=== PATIENT | male | born 1950 | race African-American/Black ===

== ENCOUNTER 2021-08-14 09:31 | Observation (INO) | payer OTHER ==
[2021-08-14] MEDS ORDERED: NA CHLORIDE 0.9% 1,000 ML ONE (10:17)
[2021-08-14] MEDS ORDERED: LABETALOL HCL 100 MG/20 ML ONE (10:17)
[2021-08-14 10:47] LABS: Absolute Lymphocytes (CBC) 1.3 K/uL (0.7-4.9); Hematocrit 45.8 % (39.6-49.0); Lymphocytes % 27.9 % (15.3-44.8); RBC Red Blood Cell Count 4.77 M/uL (4.33-5.43)
[2021-08-14 10:50] LABS: Protime INR 1.27
--- NOTE | 2021-08-14 11:27 | RAD REPORT ---
EXAM DESCRIPTION: RAD - Chest Single View - 08/14/2021 11:13 am CLINICAL HISTORY: COUGH COMPARISON: No comparisons FINDINGS: Lines: None. Lungs: No evidence of edema or pneumonia. Pleural: No significant pleural effusions or pneumothorax. Cardiac: Cardiomegaly. Bones: No acute fractures. Other: IMPRESSION: No acute cardiopulmonary disease.
--- NOTE | 2021-08-14 11:32 | RAD REPORT ---
EXAM DESCRIPTION: CT - Head Brain Wo Cont - 08/14/2021 11:21 am CLINICAL HISTORY: High blood pressure, dizziness, history of stroke COMPARISON: No comparisons TECHNIQUE: All CT scans are performed using dose optimization technique as appropriate and may inclu de automated exposure control or mA/KV adjustment according to patient size. FINDINGS: No intracranial hemorrhage, hydrocephalus or extra-axial fluid collection.Chronic small ve ssel ischemic changes. Probably chronic right basal ganglia/ jones radiata lacunar infarct. The paranasal sinuses and mastoids are clear. The calvarium is intact. IMPRESSION: No acute intracranial abnormality. Probably chronic right basal ganglia/jones radiata lacunar infarct. MRI could confirm.
[2021-08-14] MEDS ORDERED: METOPROLOL TAR 50 MG TAB ONE (11:43)
[2021-08-14] MEDS ORDERED: AMLODIPINE 10 MG TAB ONE (11:43)
--- NOTE | 2021-08-14 12:00 | ER ---
Nurse's Notes [facility] Name: Henrry Rios Age: 71 yrs Sex: Male : 1950 Arrival Date: 08/14/2021 Time: 09:34 Bed 15 Private MD: Diagnosis: Persistent atrial fibrillation-with RVR;Essential (primary) hypertension;Dyspnea;Non ST elevation NV Presentation: 08/14 09:51 Chief complaint: Patient's son or daughter states: she was informed by the patients ap3 girl friend that the patient has intermittently been short of breath since 08/09/2021. Patients daughter states that it is also reported that the patient hasn't been acting like himself since 08/09/2021. Daughter states that the patient has more of a flat affect, and he typically is very engaged in conversation and likes to joke around. Coronavirus screen: At this time, the client does not indicate any symptoms associated with coronavirus-19. Ebola Screen: No symptoms or risks identified at this time. Initial Sepsis Screen: Does the patient meet any 2 criteria? No. Patient's initial sepsis screen is negative. Does the patient have a suspected source of infection? No. Patient's initial sepsis screen is negative. Risk Assessment: Do you want to hurt yourself or someone else? Patient reports no desire to harm self or others. Onset of symptoms was August 09, 2021. 09:51 Method Of Arrival: Ambulatory ap3 09:51 Acuity: KALEY 2 ap3 Triage Assessment: 09:55 General: Appears in no apparent distress. Behavior is calm, cooperative. Pain: Denies ap3 pain. Neuro: Level of Consciousness is awake, alert, obeys commands, Oriented to person, place, time, situation, Gait is steady, Speech is normal. Neuro: Reports it is reported patient isn't acting like himself. Cardiovascular: Patient's skin is warm and dry. Respiratory: Airway is patent Respiratory effort is even, unlabored. Historical: - Allergies: 09:54 No Known Allergies; ap3 - PMHx: 09:54 Hypertensive disorder; stroke of unknown type-2019; ap3 - Immunization history:: Client reports having NOT received the Covid vaccine. Flu vaccine is not up to date. - Social history:: Smoking status: Patient denies any tobacco usage or history of. Screenin:56 Abuse screen: Denies threats or abuse. Nutritional screening: No deficits noted. ap3 Tuberculosis screening: No symptoms or risk factors identified. 10:00 Fall Risk None identified. bp Assessment: 10:00 General: SEE TRIAGE NOTE. bp 12:00 Reassessment: No changes from previously documented assessment. Patient and/or family bp updated on plan of care and expected duration. Pain level reassessed. ADMIT INITIATED. 14:00 Reassessment: No changes from previously documented assessment. Patient and/or family bp updated on plan of care and expected duration. Pain level reassessed. ADMIT IN PROCESS. Vital Signs: 09:51 BP 180 / 149; Pulse 79; Resp 18; Temp 97.7; Pulse Ox 100% on R/A; Weight 89.36 kg; ap3 Height 5 ft. 11 in. (180.34 cm); 10:00 BP 172 / 140; Pulse 116; Resp 19; Pulse Ox 99% ; bp 10:45 BP 147 / 112; Pulse 87; Resp 19; Pulse Ox 99% ; bp 12:00 BP 146 / 75; Pulse 92; Resp 21; Pulse Ox 100% ; bp 14:00 BP 144 / 116; Pulse 90; Resp 20; Pulse Ox 100% ; bp 09:51 Body Mass Index 27.48 (89.36 kg, 180.34 cm) ap3 ED Course: 09:34 Patient arrived in ED. ds1 09:54 Triage completed. ap3 09:56 Arm band placed on right wrist. ap3 10:00 Marshall Pratt, RN is Primary Nurse. bp 10:00 Yovani Curry MD is Attending Physician. pelon 10:00 Patient has correct armband on for positive identification. Bed in low position. Call bp light in reach. Side rails up X2. 10:25 Inserted saline lock: 20 gauge in right forearm, using aseptic technique. Blood bp collected. 11:15 XRAY Chest (1 view) In Process Unspecified. EDMS 11:23 CT Head Brain wo Cont In Process Unspecified. EDMS 11:59 Joshua Louis MD is Hospitalizing Provider. [facility] 23:48 Primary Nurse role handed off by Marshall Pratt, RN tw 23:48 Wanda Hoffmann RN is Primary Nurse. tw5 08/15 00:34 No provider procedures requiring assistance completed. Patient admitted, IV remains in [address] Administered Medications: 08/14 10:25 Drug: NS 0.9% 1000 ml Route: IV; Rate: 125 ml/hr; Site: right forearm; bp 10:25 Drug: Labetalol 20 mg Route: IVP; Infused Over: 2 mins; Site: right forearm; bp 11:14 Follow up: Response: Blood pressure is lowered bp 11:30 Drug: Lopressor (metoprolol TARTRATE) 50 mg Route: PO; bp 13:59 Follow up: Response: No adverse reaction bp 11:30 Drug: Norvasc (amlodipine) 10 mg Route: PO; bp 13:59 Follow up: Response: No adverse reaction bp 12:00 Drug: Lovenox (enoxaparin) 1 mg/kg Route: Sub-Q; Site: right lower abdomen; bp 14:00 Follow up: Response: No adverse reaction bp 12:00 Drug: Pepcid (famotidine) 20 mg Route: IVP; Site: right forearm; bp 14:00 Follow up: Response: No adverse reaction bp 12:45 Drug: Aspirin Chewable Tablet 324 mg Route: PO; bp 14:00 Follow up: Response: No adverse reaction bp 12:45 Drug: Potassium Effervescent Tablet 25 mEq Route: PO; bp 14:00 Follow up: Response: No adverse reaction bp 12:45 Drug: Lasix (furosemide) 20 mg Route: IVP; Site: right forearm; bp 14:00 Follow up: Response: No adverse reaction bp Outcome: 11:59 Decision to Hospitalize by Provider. pelon 08/15 00:34 Admitted to ICU accompanied by nurse, via stretcher, with chart, Report called to Rimma telles Condition: stable Instructed on the need for admit. 00:35 Patient left the ED. [facility] Signatures: Dispatcher [employer] EDYovani Akhtar MD MD cha Sanford, Demi ds1 Marshall Pratt RN RN bp Kelli Sharma RN RN ap3 Wood, Tiffany tw5 Wanda Hoffmann RN RN sm5
--- NOTE | 2021-08-14 12:00 | EDPHYS ---
Physician Documentation [facility] Name: Henrry Rios Age: 71 yrs Sex: Male : 1950 Arrival Date: 08/14/2021 Time: 09:34 Bed 15 Private MD: ED Physician Yovani Curry HPI: 08/14 11:47 This 71 yrs old Black Male presents to ER via Ambulatory with complaints of Altered pelon Mental Status, Shortness Of Breath. 11:47 The patient presents with trouble concentrating. Onset: The symptoms/episode pelon began/occurred 2 day(s) ago. Possible causes: CVA or TIA. Historical: - Allergies: 09:54 No Known Allergies; ap3 - PMHx: 09:54 Hypertensive disorder; stroke of unknown type-2018; ap3 - Immunization history:: Client reports having NOT received the Covid vaccine. Flu vaccine is not up to date. - Social history:: Smoking status: Patient denies any tobacco usage or history of. ROS: 11:48 Constitutional: Negative for fever, chills, and weight loss, Eyes: Negative for injury, pelon pain, redness, and discharge, ENT: Negative for injury, pain, and discharge, Neck: Negative for injury, pain, and swelling, Abdomen/GI: Negative for abdominal pain, nausea, vomiting, diarrhea, and constipation, Back: Negative for injury and pain, : Negative for injury, bleeding, discharge, and swelling, MS/Extremity: Negative for injury and deformity, Skin: Negative for injury, rash, and discoloration, Psych: Negative for depression, anxiety, suicide ideation, homicidal ideation, and hallucinations, Allergy/Immunology: Negative for hives, rash, and allergies, Endocrine: Negative for neck swelling, polydipsia, polyuria, polyphagia, and marked weight changes, Hematologic/Lymphatic: Negative for swollen nodes, abnormal bleeding, and unusual bruising. 11:48 Neck: Negative for pain with movement, pain at rest, stiffness, swelling. 11:48 Cardiovascular: Positive for palpitations. 11:48 Respiratory: Positive for cough, with no reported sputum. Exam: 11:48 Constitutional: This is a well developed, well nourished patient who is awake, alert, pelon and in no acute distress. Head/Face: Normocephalic, atraumatic. Eyes: Pupils equal round and reactive to light, extra-ocular motions intact. Lids and lashes normal. Conjunctiva and sclera are non-icteric and not injected. Cornea within normal limits. Periorbital areas with no swelling, redness, or edema. ENT: Nares patent. No nasal discharge, no septal abnormalities noted. Tympanic membranes are normal and external auditory canals are clear. Oropharynx with no redness, swelling, or masses, exudates, or evidence of obstruction, uvula midline. Mucous membranes moist. Neck: Trachea midline, no thyromegaly or masses palpated, and no cervical lymphadenopathy. Supple, full range of motion without nuchal rigidity, or vertebral point tenderness. No Meningismus. Chest/axilla: Normal chest wall appearance and motion. Nontender with no deformity. No lesions are appreciated. Abdomen/GI: Soft, non-tender, with normal bowel sounds. No distension or tympany. No guarding or rebound. No evidence of tenderness throughout. Back: No spinal tenderness. No costovertebral tenderness. Full range of motion. Male : Normal genitalia with no discharge or lesions. Skin: Warm, dry with normal turgor. Normal color with no rashes, no lesions, and no evidence of cellulitis. MS/ Extremity: Pulses equal, no cyanosis. Neurovascular intact. Full, normal range of motion. Neuro: Awake and alert, GCS 15, oriented to person, place, time, and situation. Cranial nerves II-XII grossly intact. Motor strength 5/5 in all extremities. Sensory grossly intact. Cerebellar exam normal. Normal gait. Psych: Awake, alert, with orientation to person, place and time. Behavior, mood, and affect are within normal limits. 11:48 Cardiovascular: Rate: normal, Rhythm: irregularly irregular, Pulses: Pulses are 4+ in bilateral radial, brachial, femoral, popliteal, posterior tibial and and dorsalis pedis arteries.. Heart sounds: normal, normal S1and S2, no S3 or S4, no murmur, no rub, no gallop, murmur, not appreciated, Edema: is not appreciated, JVD: is noted bilaterally, to 2 cm. 11:48 ECG was reviewed by the Attending Physician. Vital Signs: 09:51 BP 180 / 149; Pulse 79; Resp 18; Temp 97.7; Pulse Ox 100% on R/A; Weight 89.36 kg; ap3 Height 5 ft. 11 in. (180.34 cm); 10:00 BP 172 / 140; Pulse 116; Resp 19; Pulse Ox 99% ; bp 10:45 BP 147 / 112; Pulse 87; Resp 19; Pulse Ox 99% ; bp 12:00 BP 146 / 75; Pulse 92; Resp 21; Pulse Ox 100% ; bp 14:00 BP 144 / 116; Pulse 90; Resp 20; Pulse Ox 100% ; bp 09:51 Body Mass Index 27.48 (89.36 kg, 180.34 cm) ap3 MDM: 10:00 Patient medically screened. pelon 11:56 Differential diagnosis: Bronchitis CHF exacerbation, arrythmia, dehydration, Myocardial pelon Infarction pneumonia, Pneumothorax pulmonary edema, Pulmonary Embolism Unstable Angina. Antibiotic administration: Not indicated. Differential Diagnosis altered mental status. Differential Diagnosis: CVA, electrolyte abnormality, hypoglycemia, intracranial bleed, pneumonia, TIA, UTI, volume depletion. The patient's Wells Deep Vein Thrombosis Score was calculated as follows: Heart Rate >100 BPM (1.5 Pts) Total Score: 0-2 Pts- Low Risk. The patient's pulmonary embolism risk score was calculated as follows: Total Score: 0-2 points. This patient was found to be at low risk for a pulmonary embolism by using the Well's assessment criteria. Immunization status: Pneumococcal vaccine: Influenza vaccine: Data reviewed: vital signs, nurses notes, lab test result(s), EKG, radiologic studies, CT scan, plain films. Data interpreted: bioinformatics assistant: rate is 106 beats/min, rhythm is atrial fibrillation, atrial flutter, Pulse oximetry: on room air is 99 %. Test interpretation: by ED physician or midlevel provider: ECG, plain radiologic studies. 08/14 10:03 Order name: Basic Metabolic Panel; Complete Time: 12:21 [facility] 08/14 10:03 Order name: CBC with Diff; Complete Time: 11:46 08/14 10:03 Order name: LFT's; Complete Time: 12:21 08/14 10:03 Order name: Magnesium; Complete Time: 12:21 08/14 10:03 Order name: NT PRO-BNP; Complete Time: 12:21 08/14 10:03 Order name: PT-INR; Complete Time: 11:46 08/14 10:03 Order name: Troponin HS; Complete Time: 12:21 08/14 10:03 Order name: SARS-COV-2 RT PCR (Document "Date of Onset" if Symptomatic); Complete Time: pelon 12:20 08/14 11:21 Order name: TSH [facility] 08/14 13:10 Order name: CBC with Automated Diff EDMS 08/14 13:10 Order name: CBC with Automated Diff EDMS 08/14 13:10 Order name: Comprehensive Metabolic Panel EDMS 08/14 13:10 Order name: Comprehensive Metabolic Panel EDMS 08/14 13:10 Order name: Lipid Profile EDMS 08/14 10:03 Order name: XRAY Chest (1 view); Complete Time: 11:46 [facility] 08/14 10:03 Order name: CT Head Brain wo Cont; Complete Time: 11:46 [facility] 08/14 11:46 Order name: Echo w/ Doppler [facility] 08/14 13:10 Order name: Lipid Profile EDMS 08/14 13:10 Order name: Magnesium EDMS 08/14 13:10 Order name: Magnesium EDMS 08/14 13:10 Order name: Troponin High Sensitivity EDMS 08/14 13:10 Order name: Troponin High Sensitivity EDMS 08/14 13:10 Order name: Troponin High Sensitivity EDMS 08/14 13:10 Order name: Stroke Protocol EDMS 08/14 13:56 Order name: Urine Dipstick-Ancillary EDMS 08/14 17:43 Order name: US EDMS 08/14 20:35 Order name: MRI EDMS 08/14 20:37 Order name: MRI EDMS 08/14 20:40 Order name: MRI EDMS 08/14 10:03 Order name: EKG; Complete Time: 10:04 pelon 08/14 10:03 Order name: Cardiac monitoring; Complete Time: 10:46 pelon 08/14 10:03 Order name: EKG - Nurse/Tech; Complete Time: 10:46 08/14 10:03 Order name: IV Saline Lock; Complete Time: 10:46 pelon 08/14 10:03 Order name: Labs collected and sent; Complete Time: 10:46 pelon 08/14 10:03 Order name: O2 Per Protocol; Complete Time: 10:08 pelon 08/14 10:03 Order name: O2 Sat Monitoring; Complete Time: 10:08 pelon 08/14 10:03 Order name: Urine Dipstick-Ancillary (obtain specimen); Complete Time: 14:01 pelon 08/14 11:10 Order name: Labs - recollect needed: recollect green top; Complete Time: 13:59 bd 08/14 13:05 Order name: CONS Physician Consult [facility] 08/14 13:10 Order name: Physical Therapy Consult [facility] 08/14 13:10 Order name: Heart Healthy [facility] 08/14 13:10 Order name: EKG Electrocardiogram [facility] 08/14 13:10 Order name: EKG Electrocardiogram [facility] EC:48 Rate is 106 beats/min. Rhythm is irregularly irregular. QRS Colon is Normal. WI interval pelon is normal. QRS interval is normal. QT interval is normal. No Q waves. T waves are Normal. No ST changes noted. Clinical impression: Atrial Fibrillation and Atrial Flutter. Interpreted by me. Reviewed by me. Administered Medications: 10:25 Drug: NS 0.9% 1000 ml Route: IV; Rate: 125 ml/hr; Site: right forearm; bp 10:25 Drug: Labetalol 20 mg Route: IVP; Infused Over: 2 mins; Site: right forearm; bp 11:14 Follow up: Response: Blood pressure is lowered bp 11:30 Drug: Lopressor (metoprolol TARTRATE) 50 mg Route: PO; bp 13:59 Follow up: Response: No adverse reaction bp 11:30 Drug: Norvasc (amlodipine) 10 mg Route: PO; bp 13:59 Follow up: Response: No adverse reaction bp 12:00 Drug: Lovenox (enoxaparin) 1 mg/kg Route: Sub-Q; Site: right lower abdomen; bp 14:00 Follow up: Response: No adverse reaction bp 12:00 Drug: Pepcid (famotidine) 20 mg Route: IVP; Site: right forearm; bp 14:00 Follow up: Response: No adverse reaction bp 12:45 Drug: Aspirin Chewable Tablet 324 mg Route: PO; bp 14:00 Follow up: Response: No adverse reaction bp 12:45 Drug: Potassium Effervescent Tablet 25 mEq Route: PO; bp 14:00 Follow up: Response: No adverse reaction bp 12:45 Drug: Lasix (furosemide) 20 mg Route: IVP; Site: right forearm; bp 14:00 Follow up: Response: No adverse reaction bp Disposition Summary: 08/14/21 11:59 Hospitalization Ordered Hospitalization Status: Observation pelon Provider: Joshua Louis cha Condition: Fair pelon Problem: new pelon Symptoms: have improved pelon Bed/Room Type: Standard pelon Location: Intensive Care Unit(08/14/21 23:38) la1 Room Assignment: 4-(08/14/21 23:38) la1 Diagnosis - Persistent atrial fibrillation - with RVR pelon - Essential (primary) hypertension pelon - Dyspnea pelon - Non ST elevation [place] pelon Forms: - Medication Reconciliation Form pelon - SBAR form pelon Signatures: Dispatcher [employer] EDSeema Nowak Corey, MD MD cha Smirch, Shelby, RN RN ss Aleksandar Garcia, CAMPAIGN ADVISOR-C CAMPAIGN ADVISOR-Cla1 Marshall Pratt, RN RN bp Kelli Sharma RN RN ap3 Corrections: (The following items were deleted from the chart) 17:06 11:59 Telemetry/MedSurg (observation) pelon ss 17:06 11:59 pelon ss 23:38 17:06 BR ER HOLD ss la1 23:38 17:06 ERHOLD- ss la1
[2021-08-14] MEDS ORDERED: FAMOTIDINE 20 MG/2 ML VIAL IV ONE (12:13)
[2021-08-14] MEDS ORDERED: ENOXAPARIN 100 MG/ML SYR SQ ONE ×2 (12:13→21:11)
[2021-08-14 12:14] LABS: Albumin 3.7 g/dL (3.4-5.0); Bilirubin Direct 0.4 mg/dL (0-0.2); Bilirubin Total 1.2 mg/dL (0.2-1.0); Magnesium 2.1 mg/dL (1.8-2.4); Protein, Total 7.9 g/dL (6.4-8.2)
[2021-08-14 12:20] LABS: Troponin High Sensitivity 648.7 pg/mL (<58.9)
--- NOTE | 2021-08-14 13:17 | P.HP ---
Certification for Inpatient Patient admitted to: Observation With expected LOS: <2 Midnights Practitioner: I am a practitioner with admitting privileges, knowledge of patient current condition, hospital course, and medical plan of care. Services: Services provided to patient in accordance with Admission requirements found in Title 42 Section 412.3 of the Code of Federal Regulations Patient History Date of Service: 08/14/21 Reason for admission: new Afib, NSTEMI History of Present Illness: 71yo M, PMH: HTN, "mini stroke". Presents to ED due to 4-5 days of not acting right. Family report he has been spacing out more and described a more flat affect. Patient reports episodes of SOB, mainly when laying down at night. Denies any recent swelling, no chest pain/pressure. Does think he has had some palpitations briefly in the last week or so. Denies any fevers/chills, no change in urinary or bowel habits, no n/v, no numbness/tingling, no weakness, no changes in vision/hearing. He has not seen a physician in >4 yrs. He stopped taking his BP medication ~4yrs ago. In the ED, he was noted to be in afib with HR: 110s, hypertensive, and elevated troponin. CT head was negative for acute process. ED physician requests admission for further evaluation /management. - Past Medical/Surgical History Diabetic: No -: HTN -: mini stroke Past Surgical History: Patient denies surgical history - Family History Family History: Reviewed- Non-Contributory - Social History Smoking Status: Former smoker (quit 7-8 yrs ago) Alcohol use: Yes Place of Residence: Home Review of Systems 10-point ROS is otherwise unremarkable Physical Examination - Physical Exam General: Alert, In no apparent distress, Oriented x3 HEENT: PERRLA, Mucous membr. moist/pink, EOMI, Sclerae nonicteric Neck: Supple, No LAD Respiratory: Clear to auscultation bilaterally Cardiovascular: No edema, No murmurs, Irregular heart rate/rhythm Gastrointestinal: Soft and benign, Non-distended, No tenderness Musculoskeletal: No erythema, No tenderness Integumentary: No rashes, No significant lesion Neurological: Normal speech, Normal strength at 5/5 x4 extr, Sensation intact, Cranial nerves 3-12 intact, Abnormal affect (somewhat flat) - Studies Laboratory Data (last 24 hrs) 08/14/21 11:45: Sodium 140, Potassium 4.0, BUN 20 H, Creatinine 1.13, Glucose 86, Magnesium 2.1, Total Bilirubin 1.2 H, AST 19, ALT 13, Alkaline Phosphatase 65 08/14/21 10:35: PT 14.0 H, INR 1.27 08/14/21 10:35: WBC 4.6, Hgb 15.2, Hct 45.8, Plt Count 216 Assessment and Plan - Advance Directives Does patient have a Living Will: No Does patient have a Durable POA for Healthcare: No Physician Review Additional Text: Problem List new onset Afib NSTEMI decreased affect acute encephalopathy, likely metabolic h/o prior CVA - no residual effects HTN alcohol dependence reported palpitations new, very rarely in last week has not been "acting himself" lately, and "spacing out" more afib - new diagnosis, likely new onset; increases risk for CVA as well metoprolol, lovenox echo, telemetry cardiology consulted no focal findings on neuro exam CT head negative, will check MRI to r/o stroke titrate anti-hypertensives as needed patient reports drinks 1 mixed alcoholic drink every day. Family report slight hand tremors when he misses a few days. Denies any further withdrawal symptoms. Last drink on 08/12. monitor for withdrawal VTE: lovenox 1mg/kg BID Code: full Dispo: home, in 24-48hrs, pending improvement and workup as above Time Spent Managing Pts Care (In Minutes): 60
[2021-08-14] MEDS ORDERED: FUROSEMIDE 20 MG/ 2ML VIAL ONE (13:37)
[2021-08-14] MEDS ORDERED: POTASSIUM 25 MEQ EFFERV TAB ONE (13:38)
[2021-08-14] MEDS ORDERED: ASPIRIN 81 MG CHEWABLE TABLET ONE (13:38)
[2021-08-14 13:55] LABS: Urine Blood Trace-intact (Negative); Urine Glucose Negative (Negative); Urine Protein 2+ (Negative); Urine Specific Gravity >=1.030 (1.005-1.030)
[2021-08-14 14:05] VITALS: O2SAT 99
--- NOTE | 2021-08-14 17:42 | RAD REPORT ---
EXAM DESCRIPTION: - CP - 08/14/2021 5:29 pm CLINICAL HISTORY: eval stenosis, possible CVA COMPARISON: No comparisons TECHNIQUE: Real-time sonographic evaluation of bilateral carotid and vertebral systems was performed . Rock scale and Doppler interrogation were performed with waveform tracing bilaterally. FINDINGS: Exam was technically difficult with limited visualization. Normal high resistance waveforms are noted in both external carotid arteries. The common carotid kaela josefina and internal carotid arteries show normal low resistance waveforms. Mild plaquing changes are present with no visual evidence for significant luminal narrowing. No disse ction changes are present. Peak systolic and end diastolic velocity values and the ICA/CCA ratios are in the non-hemodynamically significant range. Left vertebral artery could not be visualized. Velocity values and ratios were recorded and are retained in the patient's imaging records. IMPRESSION: No significant atherosclerotic changes noted. No evidence of a hemodynamically significant stenosis. Nonvisualization of the left vertebral artery is believed to be due to technical limitation rather th an due to a significant left vertebral process.
[2021-08-14] MEDS: METOPROLOL TAR 50 MG TAB PO SCH (18:00)
--- NOTE | 2021-08-14 20:32 | RAD REPORT ---
EXAM DESCRIPTION: MRI - Brain W/Wo Cont - 08/14/2021 8:20 pm CLINICAL HISTORY: slow to respond, h/o CVA, new afib COMPARISON: MRA Head Wo Cont dated 08/14/2021; MRA Neck W/Wo Cont dated 08/14/2021; Head Brain Wo Cont dated 08/14/2021 TECHNIQUE: Sagittal and axial T1-weighted images were obtained. Axial PD/heavily T2-weighted and T2- FLAIR images were obtained along with axial DWI/ADC mapping sequences. Coronal heavily T2 weighted s equence obtained. Axial and coronal post-contrast T1-weighted images were also obtained. A 20 ml Mul tihance contrast following utilized. FINDINGS: No intracranial hemorrhage, mass or acute infarction. Underlying volume loss changes are m ild. Prominent chronic ischemic changes are present throughout the cerebral white matter. Old infarct ion changes are seen in the right basal ganglia head of the caudate region on the left. Anterior horn left lateral ventricle has enlarged in proportion to the localized volume loss. Ventricles are in pr oportion to the amount of volume loss. There is no edema or shift of midline structures. No extra-axi al fluid collections. Rock-matter/white matter junction is preserved. Signal voids are seen as a nor mal finding in the major intracranial vessels. Post-contrast images show normal enhancement. No dural thickening. Mastoid air cells and paranasal sinuses are clear. IMPRESSION: No acute infarction changes are identified. Mild atrophy and prominent chronic ischemic changes are present as detailed.
--- NOTE | 2021-08-14 20:36 | RAD REPORT ---
EXAM DESCRIPTION: MRI - MRA Head Wo Cont - 08/14/2021 8:20 pm CLINICAL HISTORY: Stroke, weakness altered mental status COMPARISON: CT head same date, MRI brain same date TECHNIQUE: Axial and coronal 3D [id number] image acquisition was performed. 3D rotational images were generated with source and reconstruction images reviewed. Horizontal and vertical axis rotation al views generated using MIP protocol. FINDINGS: Exam suffers from motion degradation limitations. Right vertebral artery is dominant. Smal l distal left vertebral artery seen as a normal variant. Mild atherosclerotic changes are seen in the proximal basilar artery without significant luminal narrowing. Moderate to moderately advanced ather osclerotic change and luminal narrowing seen in the bilateral posterior cerebral artery distributions . The petrous portions of the bilateral internal carotid arteries show no significant findings. The cav ernous and supraclinoid region show atherosclerotic narrowing more so in the right cavernous internal carotid artery. However, the amount of motion limits accurate assessment of severity. The right cave rnous ICA and left supraclinoid ICA portions likely have stenosis of 50-60%. Significant atherosclerotic changes are evident in the bilateral anterior cerebral artery A1 segments . More mild atherosclerotic narrowing seen in the more distal anterior cerebral artery distributions. No significant disease in the proximal portions of either middle cerebral artery. The more distal M2 /M3 branches show moderate severity atherosclerotic luminal narrowing. No named branch occlusion or v asculitis findings identified. IMPRESSION: Moderate severity atherosclerotic changes involve the anterior, middle and posterior cer ebral artery distributions bilaterally. Significant atherosclerotic changes are present in the right internal carotid artery cavernous portio n and left internal carotid artery supraclinoid portion, estimated at 50-60%.
--- NOTE | 2021-08-14 20:38 | RAD REPORT ---
EXAM DESCRIPTION: MRI - MRA Neck W/Wo Cont - 08/14/2021 8:20 pm CLINICAL HISTORY: CVA, altered mental status, weakness COMPARISON: MRI brain same date, carotid ultrasound same date TECHNIQUE: MR angiography of the cervical vasculature performed. Coronal imaging plane acquisition u tilized. A MultiHance contrast volume was utilized. Coronal reformatted images were generated and re viewed. Vertical axis 3D rotational projections obtained using maximum intensity projection protocol. FINDINGS: Innominate, common carotid and subclavian artery origins from the aortic arch show no sten osis. The small left vertebral artery arises from the aortic arch with no origins stenosis. The right vertebral artery origin is difficult to visualize. Stenosis is suspected but cannot be accurately es timated. More distally the basilar arteries show no dissection or significant stenosis. Bilateral common carotid arteries are mildly tortuous. The internal carotid arteries are tortuous in the proximal portion of the left ICA and midportion of the right ICA. No stenosis, dissection or sign ificant carotid vascular finding. IMPRESSION: MRA neck examination as detailed above shows no significant or suspicious finding.
[2021-08-14] MEDS: ENOXAPARIN 100 MG/ML SYR SQ SCH (21:00)
[2021-08-14] MEDS: FOLIC ACID 1 MG TABLET PO SCH (21:00)
[2021-08-14] MEDS ORDERED: FOLIC ACID 1 MG TABLET ONE (21:11)
[2021-08-14] MEDS ORDERED: HYDRALAZINE HCL 20 MG/ML VIAL IV PRN (21:14)
[2021-08-15] MEDS ORDERED: METOPROLOL TARTRATE 5 MG/5 ML INJ IV STA (00:04)
[2021-08-15] MEDS ORDERED: METOPROLOL TARTRATE 5 MG/5 ML INJ IV ONE (00:04)
[2021-08-15] MEDS ORDERED: METOPROLOL TARTRATE 5 MG/5 ML INJ IV PRN (01:01)
[2021-08-15 01:20] VITALS: BMI 27.3
[2021-08-15] MEDS ORDERED: HYDRALAZINE HCL 20 MG/ML VIAL IV ONE (03:10)
[2021-08-15] MEDS: METOPROLOL TAR 50 MG TAB PO SCH (03:16)
[2021-08-15 05:09] LABS: Absolute Lymphocytes (CBC) 1.6 K/uL (0.7-4.9); Hematocrit 47.1 % (39.6-49.0); Lymphocytes % 29.5 % (15.3-44.8); MPV 10.2 fL (7.6-11.3); RBC Red Blood Cell Count 4.82 M/uL (4.33-5.43)
[2021-08-15 05:22] LABS: Albumin 3.9 g/dL (3.4-5.0); Bilirubin Total 1.4 mg/dL (0.2-1.0); Potassium 4.2 mmol/L (3.5-5.1); Protein, Total 8.2 g/dL (6.4-8.2)
--- NOTE | 2021-08-15 06:12 | P.PN ---
Date of Service: 08/15/21
[2021-08-15] MEDS ORDERED: PNEUMOCOCCAL VACCINE 0.5 ML IMVAC ONE (08:00)
[2021-08-15] MEDS ORDERED: lisinopriL 20 MG TAB PO SCH (09:00)
[2021-08-15] MEDS ORDERED: AMLODIPINE 10 MG TAB PO SCH (09:00)
[2021-08-15 09:18] VITALS: TEMP 97.6
[2021-08-15] MEDS: FOLIC ACID 1 MG TABLET PO SCH (09:18)
[2021-08-15 09:19] VITALS: BP 135/74
[2021-08-15] MEDS: ENOXAPARIN 100 MG/ML SYR SQ SCH (09:19)
--- NOTE | 2021-08-15 11:01 | EKG ---
Test Date: 2021-08-14 Test Time: 10:22:49 [place] Trimmer: BP MEASUREMENT RESULTS: Intervals: Rate: 106 IN: QRSD: 80 QT: 382 QTc: 507 [place]: P: IN: QRS: 46 T: 119 INTERPRETIVE STATEMENTS: Atrial fibrillation with rapid ventricular response with premature ventricular or aberrantly conducted complexes Nonspecific T wave abnormality, probably digitalis effect Abnormal ECG No previous ECG available for comparison Electronically Signed On 08-15-21 10:57:33 CDT by Devyn Romero
--- NOTE | 2021-08-15 11:13 | ECHO ---
HEIGHT: 5 ft 11 in WEIGHT: 196 lb 4.8 oz DATE OF STUDY: 08/15/[address]: Yovani Curry MD 2-DIMENSIONAL: YES M.MODE: YES DOPPLER: YES COLOR FLOW: YES TDS: PORTABLE: YES DEFINITY: BUBBLE STUDY: DIAGNOSIS: ATRIAL FIBRILLATION CARDIAC HISTORY: CATHERIZATION: NO SURGERY: NO PROSTHETIC VALVE: NO PACEMAKER: NO MEASUREMENTS (cm) DIASTOLIC (NORMALS) SYSTOLIC (NORMALS) IVSd 1.5 (0.6-1.2) LA Diam 3.7 (1.9-4.0) LVEF 43% LVIDd 3.6 (3.5-5.7) LVIDs 2.9 (2.0-3.5) %FS 21% LVPWd 1.5 (0.6-1.2) Ao Diam 2.6 (2.0-3.7) 2 DIMENSIONAL ASSESSMENT: RIGHT ATRIUM: NORMAL LEFT ATRIUM: NORMAL RIGHT VENTRICLE: NORMAL LEFT VENTRICLE: LEFT VENTRICULAR HYPERTROPHY TRICUSPID VALVE: NORMAL MITRAL VALVE: MITRAL ANNULAR CALCIFICATION PULMONIC VALVE: NORMAL AORTIC VALVE: NORMAL PERICARDIAL EFFUSION: NONE AORTIC ROOT: NORMAL LEFT VENTRICULAR WALL MOTION: MILD TO MODERATE GLOBAL HYPOKINESIS. DOPPLER/COLOR FLOW: MODERATE TRICUSPID REGURGITATION. COMMENTS: MODERATE PULMONARY HYPERTENSION. RIGHT VENTRICULAR SYSTOLIC PRESSURE 47mmHg. MILD GLOBAL HYPOKINESIS. EJECTION FRACTION 43%. LEFT VENTRICULAR HYPERTROPHY. NO THROMBUS. TECHNOLOGIST: JAMIA BALTAZAR
--- NOTE | 2021-08-15 20:23 | P.DS ---
Admission Date: 08/14/21 Discharge Date: 08/15/21 Disposition: ROUTINE DISCHARGE Discharge Condition: GOOD Reason for Admission: new Afib, NSTEMI Consultations: Cardiology - Dr. Romero Procedures: MRI, MRA Brain MRA Neck Carotid U/S CXR CT Head Problem List new onset Afib NSTEMI secondary to demand ischemia in setting of uncontrolled HTN and afib decreased affect, acute metabolic encephalopathy, resolved h/o prior CVA - no residual effects HTN alcohol dependence Brief History of Present Illness: 71yo M, PMH: HTN, "mini stroke". Presents to ED due to 4-5 days of not acting right. Family report he has been spacing out more and described a more flat affect. Patient reports episodes of SOB, mainly when laying down at night. Denies any recent swelling, no chest pain/pressure. Does think he has had some palpitations briefly in the last week or so. Denies any fevers/chills, no change in urinary or bowel habits, no n/v, n o numbness/tingling, no weakness, no changes in vision/hearing. He has not seen a physician in >4 yrs. He stopped taking his BP medication ~4yrs ago. In the ED, he was noted to be in afib with HR: 110s, hypertensive, and elevated troponin. CT head was negative for acute process. ED physician requests admission for further evaluation /management. Hospital Course: Patient was found to be in atrial fibrillation, which is a new diagnosis for him. Unclear if new development or asymptomatic until now. Rate control was achieved with metoprolol. He was started on anticoagulation. His troponin was mildly elevated. Cardiology was consulted and felt this was demand ischemia secondary to his uncontrolled hypertension and afib. Echocardiogram was obtained. Patient to follow up with Dr. Romero in 1-2 weeks. May benefit from outpatient stress test. Blood pressure was noted to be elevated. He was started on norvasc and lisinopril with improvement. Discharged home with these medications. Recommend checking blood pressure at home, daily. Follow up with PCP within 1 week for further adjustments. MRI was negative for any acute process, no stroke. Revealed some atheroscle rosis. LDL was 124. Patient started on atorvastatin. Vital Signs/Physical Exam: Temp Pulse Resp BP Pulse Ox 97.6 F 100 H 20 135/74 96 08/15/21 08:00 08/15/21 09:19 08/15/21 04:00 08/15/21 09:19 08/14/21 21:17 General: Alert, In no apparent distress, Oriented x3 HEENT: Sclerae nonicteric Neck: Supple, No LAD Respiratory: Clear to auscultation bilaterally, Normal air movement Cardiovascular: No edema, Irregular heart rate/rhythm Gastrointestinal: Soft and benign, Non-distended, No tenderness Musculoskeletal: No erythema, No tenderness Neurological: Normal speech, Normal strength at 5/5 x4 extr, Sensation intact, Cranial nerves 3-12 intact, Normal affect Laboratory Data at Discharge: WBC 5.5 K/uL (4.3-10.9) D 08/15/21 04:28 Hgb 15.4 g/dL (13.6-17.9) 08/15/21 04:28 Hct 47.1 % (39.6-49.0) 08/15/21 04:28 Plt Count 215 K/uL (152-406) 08/15/21 04:28 PT 14.0 SECONDS (9.5-12.5) H 08/14/21 10:35 INR 1.27 08/14/21 10:35 Sodium 138 mmol/L (136-145) 08/15/21 04:28 Potassium 4.2 mmol/L (3.5-5.1) 08/15/21 04:28 BUN 22 mg/dL (7-18) H 08/15/21 04:28 Creatinine 1.07 mg/dL (0.55-1.3) 08/15/21 04:28 Glucose 87 mg/dL (74-106) 08/15/21 04:28 Magnesium 2.0 mg/dL (1.8-2.4) 08/15/21 04:28 Total Bilirubin 1.4 mg/dL (0.2-1.0) H 08/15/21 04:28 AST 18 U/L (15-37) 08/15/21 04:28 ALT 13 U/L (12-78) 08/15/21 04:28 Alkaline Phosphatase 63 U/L (45-117) 08/15/21 04:28 Triglycerides 79 mg/dL (<150) 08/15/21 04:28 Cholesterol 190 mg/dL (<200) 04/13/22 04:28 HDL Cholesterol 50 mg/dL (40-60) 08/15/21 04:28 Cholesterol/HDL Ratio 3.80 08/15/21 04:28 Home Medications: Amlodipine [Norvasc*] 10 mg PO DAILY 30 Days #30 tab 08/15/21 Apixaban [Eliquis] 5 mg PO BID 30 Days #60 tablet 08/15/21 Atorvastatin Calcium 20 mg PO BEDTIME 30 Days #30 tablet 08/15/21 Metoprolol Tartrate [Lopressor*] 50 mg PO BID 30 Days #60 tab 08/15/21 Rivaroxaban [Xarelto] 20 mg PO DAILY AT SUPPER 30 Days #30 tablet 08/15/21 lisinopriL [Prinivil*] 20 mg PO DAILY 30 Days #30 tab 08/15/21 New Medications: Atorvastatin Calcium 20 mg PO BEDTIME 30 Days #30 tablet Apixaban [Eliquis] 5 mg PO BID 30 Days #60 tablet Metoprolol Tartrate [Lopressor*] 50 mg PO BID 30 Days #60 tab Amlodipine [Norvasc*] 10 mg PO DAILY 30 Days #30 tab lisinopriL [Prinivil*] 20 mg PO DAILY 30 Days #30 tab Rivaroxaban [Xarelto] 20 mg PO DAILY AT SUPPER 30 Days #30 tablet Physician Discharge Instructions: PROBLEM: Afib GOAL: Clear understanding of disease process INSTRUCTIONS: Patient was found to be in atrial fibrillation, which is a new diagnosis for him. Unclear if new development or asymptomatic until now. Rate control was achieved with metoprolol. He was started on anticoagulation. His troponin was mildly elevated. Cardiology was consulted and felt this was demand ischemia secondary to his uncontrolled hypertension and afib. Echocardiogram was obtained. Patient to follow up with Dr. Romero in 1-2 weeks. May benefit from outpatient stress test. Blood pressure was noted to be elevated. He was started on norvasc and lisinopril with improvement. Discharged home with these medications. Recommend checking blood pressure at home, daily. Follow up with PCP within 1 week for further adjustments. MRI was negative for any acute process, no stroke. Revealed some atherosclerosis. LDL was 124. Patient started on atorvastatin. If symptoms worsen, please go to the ER. If you have any questions, please feel free to call . Diet: Heart Healthy Activity: As Tolerated DME DME: Date Ordered: Name of Company: [employer] Services Needed: None Name of Company: Date or Referral: IMMUNIZATION Influenza Vaccine Indicated: Influenza Vaccine Given: Date Given: Pneumonia Vaccine Indicated: Yes Pneumonia Vaccine Given: Date Given: Followup: Devyn Romero MD [ACTIVE - CAN ADMIT] - Kaitlyn Ahmadi DO [Primary Care Provider] - Time spent managing pt's care (in minutes): 45
--- NOTE | 2021-08-16 07:48 | PN ---
Date of Progress Note: 08/15/2021 Mr. Rios is 71, came in with atrial fibrillation of unknown duration, hypertensive crisis with enc ephalopathy, shortness of breath. Negative chest x-ray. Elevated troponin. Remains in atrial fibri llation. Remains hypertensive. He is on metoprolol, hydralazine, and lisinopril. He is being antic oagulated. I would increase his metoprolol, add Norvasc. Consider use hydrochlorothiazide. Continu e hydralazine. Echocardiogram showed ejection fraction of 41%. He is on appropriate therapy with me toprolol and lisinopril, adding hydrochlorothiazide may be beneficial down the road. Again, I would aim for a beta papo anticoagulation, rate control. Gentle diuresis. Outpatient Lexiscan. He can go home whenever it is okay with Dr. Louis. GERALDINE/RICA Voice ID: [id number] Report ID: [id number]
--- NOTE | 2021-08-16 10:02 | CON ---
Date of Consultation: 08/14/2021 Reason For Consultation: Atrial fibrillation. History Of Present Illness: Mr. Rios is a 71-year-old black male with history of hypertension and CVA. Has not seen physicians for quite sometime. Came in with altered mental status, hypertensive crisis, possible hypertensive encephalopathy, was noted to be in atrial fibrillation of unknown durat ion. Rate was 99. Denied any chest pain, nausea, vomiting, diaphoresis, PND, orthopnea, pedal edema . He denied any palpitation or syncope. Denied any fever or chills. Past Medical History: As stated above. Medications: He takes no medications at home. Allergies: NONE. Review of Systems: Negative. Social History: Negative. Family History: Negative. Physical Examination: General: Mr. Rios appeared to be slightly confused worry about he was in atrial fibril lation at rate of 110 when I saw him and afebrile. HEENT: Negative. Neck: Supple with no bruit. Chest: Clear. Cardiac: Revealed atrial fibrillation. No murmurs, gallops, or rubs. Abdomen: Benign. Extremities: Revealed no clubbing, cyanosis, or edema. Diagnostic Data: Chest x-ray was negative. Carotid Doppler was negative. MRI showed old coronary i nfarct. EKG showed atrial fibrillation. Troponin was 612. Impression And Plan: 1.Hypertensive encephalopathy. 2.Atrial fibrillation, unknown duration. 3.History of old cerebrovascular accident. The patient is presently on metoprolol, hydralazine, and lisinopril. We should consider using Norvasc. We should consider using hydrochlorothiazide. Echoc ardiogram is pending. He will need to have an outpatient Lexiscan. As far as atrial fibrillation, I would aim for beta-blockers for rate control and anticoagulation at this point. We do not know how long he has had atrial fibrillation. We will consider cardioversion down the road. When he goes leigh e, I will make sure he has an outpatient Lexiscan and has a followup. GERALDINE/RICA Voice ID: [id number] Report ID: [id number]
== END 2021-08-15 10:53 | disposition home or self-care (01) ==
LOC: ER 09:31 → ERHOLD 13:03 → 3RD-ICU 08-15 00:02
PROVIDERS: ADMIT Hospitalist; ATTEND Hospitalist
DX: I48.91 Unspecified atrial fibrillation (principal); I21.A1 Myocardial infarction type 2; I16.9 Hypertensive crisis, unspecified; G93.41 Metabolic encephalopathy; I10 Essential (primary) hypertension; F10.20 Alcohol dependence, uncomplicated; Z86.73 Personal history of transient ischemic attack (TIA), and cerebral infarction without residual deficits; Z87.891 Personal history of nicotine dependence; Z20.822 Contact with and (suspected) exposure to COVID-19
CPT/HCPCS: 93005 ×2; 93306; 85025 ×2; 80048; 36415; 83735 ×2; 85610; 80061; 80076; 84443; 81003; 84484 ×3; 80053; 83880; 70450; 71045; 93880; 70553; 70544; 70549; 94760 ×2; 96375; 96372; 96374; 99285; U0003; A9577; J0360 ×2; J1940; J1650 ×3; J7030; G0378 ×3

== ENCOUNTER 2022-04-02 18:22 | Inpatient (IN) | payer OTHER ==
--- OUTSIDE RECORDS SUMMARY | 2022-04-02 18:25 | XMS REPORT | Continuity of Care Document ---
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 Social History Social Habit Start Date Stop Date Quantity Comments Source History of Tobacco Use Co mmon [facility] Sex Assigned At Com mon [facility] Smoking Status Start Date Stop Date Source Never Smoker [facility] Medications Ordered Filled Start Stop Current Ordering Indication Dosage Frequency Signature Comments Components Source Medication Medication Date Date Medication? Clinician (SIG) Name Name Apixaban 5 Apixaban 5 No BID Apixaban 5 MG MG MG Metoprolol Metoprolol No 1{table BID Metoprolol Tartrate 50 Tartrate 50 t_with_ Tartrate MG MG food} 50 MG amLODIPine amLODIPine No 1{table QD amLODIPine Besylate 10 Besylate 10 t} Besylate MG MG 10 MG Lisinopril Lisinopril No 1{table QD Lisinopril 20 MG 20 MG t} 20 MG Vital Signs Vital Name Observation Time Observation Value Comments Source height 2021-11-06 15:30:00 76.00 [in_i] [facility] weight 2021-11-06 15:30:00 188.4 [lb_av] [facility] temperature 2021-11-06 15:30:00 97.6 [degF] [facility] bmi 2021-11-06 15:30:00 22.93 kg/m2 [facility] oximetry 2021-11-06 15:30:00 98 % [facility] respiratory rate 2021-11-06 15:30:00 16 /min Comm on [facility] blood pressure 2021-11-06 15:30:00 160 mm[Hg] [facility] systolic [facility] blood pressure 2021-11-06 15:30:00 100 mm[Hg] [facility] diastolic [facility] Procedures This patient has no known procedures. Encounters Start End Encounter Admission Attending Care Care Encounter Source Date/Time Date/Time Type Type Clinicians Facility Department ID [facility]-11-06 [facility] [id number] Common 15:24:03 [id number] [facility] 2021-11-06 2021-11-06 [facility] [id number] Co mmon 00:00:00 00:00:00 VISIT [facility] it PT LEVEL 4 [facility] Results This patient has no known results.
[2022-04-02] MEDS ORDERED: dilTIAZem HCL 25 MG/5 ML VIAL IV ONE (18:59)
--- NOTE | 2022-04-02 19:21 | RAD REPORT ---
EXAM DESCRIPTION: CT - Head Brain Wo Cont - 04/02/2022 7:12 pm CLINICAL HISTORY: Neuro deficit, acute, stroke suspected Headache, drowsiness COMPARISON: Head Brain Wo Cont dated 08/14/2021; Brain W/Wo Cont dated 08/14/2021 TECHNIQUE: All CT scans are performed using dose optimization technique as appropriate and may inclu de automated exposure control or mA/KV adjustment according to patient size. FINDINGS: No intracranial hemorrhage, hydrocephalus or extra-axial fluid collection.There is a 6 x 3 cm area of diminished density in the left parietal lobe posteriorly compatible with subacute infarct . No hemorrhage is seen. Moderate generalized brain atrophy is present with moderate periventricular and deep white matter ch ronic microvascular ischemic changes. The paranasal sinuses and mastoids are clear. The calvarium is intact. IMPRESSION: 6 cm area diminished density left posterior parietal lobe compatible with subacute CVA. No hemorrhagic component evident. The findings were discussed with Dr Curry in the emergency room on 04/02/2022 at 7:16 p.m. by tel gibranone.
[2022-04-02 19:48] LABS: Absolute Lymphocytes (CBC) 1.1 K/uL (0.7-4.9); Hematocrit 45.2 % (39.6-49.0); Lymphocytes % 21.1 % (15.3-44.8); MCV 88.9 fL (80-100); MPV 9.6 fL (7.6-11.3); RBC Red Blood Cell Count 5.09 M/uL (4.33-5.43)
[2022-04-02] MEDS ORDERED: METOPROLOL TAR 50 MG TAB ONE (19:51)
[2022-04-02] MEDS ORDERED: METOPROLOL TARTRATE 5 MG/5 ML INJ IV ONE (19:52)
[2022-04-02] MEDS ORDERED: FAMOTIDINE 20 MG/2 ML VIAL IV ONE (19:52)
[2022-04-02 20:00] LABS: Protime INR 1.15
[2022-04-02 20:02] LABS: SARS-CoV-2 Antigen Rapid Res Negative (Negative)
--- NOTE | 2022-04-02 20:06 | RAD REPORT ---
EXAM DESCRIPTION: RAD - Chest Single View - 04/02/2022 7:48 pm CLINICAL HISTORY: stroke Chest pain. COMPARISON: Chest Single View dated 08/14/2021 FINDINGS: Portable technique limits examination quality. The lungs are grossly clear. The heart is moderately enlarged. No displaced fractures. IMPRESSION: Moderate cardiomegaly.
[2022-04-02 20:14] LABS: Albumin 3.1 g/dL (3.4-5.0); Bilirubin Direct 1.4 mg/dL (0-0.2); Bilirubin Total 2.5 mg/dL (0.2-1.0); Protein, Total 7.1 g/dL (6.4-8.2)
[2022-04-02 20:15] LABS: Thyroid Stimulating Hormone 4.51 uIU/mL (0.360-3.740); Troponin High Sensitivity 420.7 pg/mL (<58.9)
--- NOTE | 2022-04-02 20:28 | EDPHYS ---
Physician Documentation [facility] Name: Henrry Rios Age: 71 yrs Sex: Male : 1950 Arrival Date: 04/02/2022 Time: 18:35 Bed 26 Private MD: ED Physician Yovani Curry HPI: 04/02 18:56 This 71 yrs old Black Male presents to ER via EMS with complaints of Leg Swelling. jr11 18:56 The patient presents with swelling. The complaints affect the right foot and right jr11 ankle and right midcalf and left foot and left ankle and left midcalf. Context: The problem was sustained at home, resulted from chf. Onset: The symptoms/episode began/occurred last week. Modifying factors: The symptoms are alleviated by nothing. the symptoms are aggravated by nothing. Associated signs and symptoms: The patient has no apparent associated signs or symptoms. Unable to obtain HPI due to altered mental status. Pt here since he is feeling confused and not taking medicines since last discharge. Denies pain anywhere. Pt here to "be checked out". 19:36 Treatment prior to arrival includes: no previous treatment. Severity of symptoms: At pelon their worst the symptoms were mild, in the emergency department the symptoms are unchanged. It is unknown whether or not the patient has had similar symptoms in the past. Historical: - Allergies: 18:42 No Known Allergies; ph - Home Meds: 18:42 Metoprolol Tartrate Oral [Active]; Lisinopril Oral [Active]; amlodipine oral [Active]; ph - PMHx: 18:42 Hypertensive disorder; stroke of unknown type-2019; Atrial fibrillation; ph - Immunization history:: Adult Immunizations unknown. - Social history:: Smoking status: Patient denies any tobacco usage or history of. ROS: 18:56 Unable to obtain ROS due to altered mental status. jr11 19:36 Back: Negative for injury and pain. pelon 19:36 Constitutional: Positive for malaise. 19:36 Cardiovascular: Positive for palpitations. 19:36 Respiratory: Positive for shortness of breath, on exertion. 19:36 Abdomen/GI: Negative for abdominal pain, nausea and vomiting. 19:36 MS/extremity: Positive for swelling, tenderness, of the right leg and left leg. Exam: 18:56 Constitutional: appears chronically ill Head/Face: Normocephalic, atraumatic. Eyes: jr11 Extra-ocular motions intact. Lids and lashes normal. Conjunctiva and sclera are non-icteric and not injected. Cornea within normal limits. Periorbital areas with no swelling, redness, or edema. ENT: Nares patent. No nasal discharge, no septal abnormalities noted. Oropharynx with no redness, swelling, or masses, exudates, or evidence of obstruction, uvula midline. Mucous membranes moist. Neck: Trachea midline, no thyromegaly or masses palpated, and no cervical lymphadenopathy. Supple, full range of motion without nuchal rigidity, or vertebral point tenderness. No Meningismus. Cardiovascular: irregularly irregular Respiratory: diminished at the bases Abdomen/GI: Soft, non-tender, with normal bowel sounds. No distension or tympany. No guarding or rebound. No evidence of tenderness throughout. Back: No spinal tenderness. No costovertebral tenderness. Full range of motion. MS/ Extremity: 2+ to chappell 19:36 ECG was reviewed by the Attending Physician. [facility] Vital Signs: 18:39 BP 172 / 98; Pulse 126; Resp 18; Temp 97.9; Pulse Ox 96% on R/A; Weight 90.72 kg; ph Height 5 ft. 11 in. (180.34 cm); Pain 0/10; 19:32 BP 165 / 114; Pulse 107; Resp 15 S; Pulse Ox 97% on R/A; aa9 20:00 BP 165 / 116; Pulse 95; Resp 22; Temp 98.7; Pulse Ox 96% on R/A; pf1 21:00 BP 151 / 111; Pulse 95; Resp 16; Temp 98; Pulse Ox 96% on R/A; Pain 0/10; pf1 22:00 BP 151 / 112; Pulse 88; Resp 14; Temp 98; Pulse Ox 100% on R/A; Pain 0/10; pf1 22:00 Resp 16; Temp 97.8; Pulse Ox 100% ; Pain 0/10; pf1 18:39 Body Mass Index 27.89 (90.72 kg, 180.34 cm) ph MDM: 18:46 Patient medically screened. jr11 18:56 Differential diagnosis: medication non compliance, afib RVR, CHF. Data reviewed: vital jr signs, nurses notes. Data interpreted: lead qa analyst:. ED course: EKG int by me shows Afib RVR nl axis, narrow qrs, no STEMI. ED course: Care to be transferred to [place]. 04/02 18:51 Order name: Basic Metabolic Panel; Complete Time: 20:29 [facility] 04/02 18:51 Order name: CBC with Diff; Complete Time: 20:11 [facility] 04/02 18:51 Order name: Hepatic Function; Complete Time: 20: [facility] 04/02 18:51 Order name: High Sensitivity Troponin; Complete Time: 20: [facility] 04/02 18:51 Order name: Magnesium; Complete Time: 20: [facility] 04/02 18:51 Order name: Protime (+inr); Complete Time: 20: [facility] 04/02 18:51 Order name: Ptt, Activated; Complete Time: 20: [facility] 04/02 18:51 Order name: UDS [facility] 04/02 18:51 Order name: UA [facility] 04/02 18:51 Order name: UA MICROSCOPIC [facility] 04/02 18:51 Order name: SARS RAPID; Complete Time: 20:11 [facility] 04/02 19:54 Order name: NT PRO-BNP; Complete Time: 20:29 [facility] 04/02 18:51 Order name: Stroke CXR 1 View; Complete Time: 20:11 [facility] 04/02 19:54 Order name: Thyroid Stimulating Hormone; Complete Time: 20:29 [facility] 04/02 20:17 Order name: T4 Free; Complete Time: 20:29 [facility] 04/02 22:12 Order name: Urine Dipstick-Ancillary ED[facility] 04/02 22:36 Order name: Urinalysis W/Microscopic [facility] 04/03 04:50 Order name: CBC with Automated Diff [facility] 04/03 05:25 Order name: Protime (+INR) [facility] 04/03 07:35 Order name: PTT, Activated Partial Thromb ED[facility] 04/03 07:51 Order name: Comprehensive Metabolic Panel ED[facility] 04/03 07:51 Order name: Troponin High Sensitivity EDMS 04/03 07:51 Order name: Lipid Profile EDMS 04/03 07:51 Order name: Magnesium EDMS 04/03 07:51 Order name: Thyroid Stimulating Hormone EDMS 04/03 10:14 Order name: T4 Free EDMS 04/03 10:31 Order name: PTT, Activated Partial Thromb ED[facility] 04/02 18:51 Order name: EKG; Complete Time: 18:52 [facility] 04/02 18:51 Order name: Accucheck; Complete Time: 18:56 [facility] 04/02 18:51 Order name: Cardiac monitoring; Complete Time: 18:56 [facility] 04/02 18:51 Order name: EKG - Nurse/Tech; Complete Time: 18:56 [facility] 04/02 18:51 Order name: IV Saline Lock; Complete Time: 19:05 [facility] 04/02 18:51 Order name: Labs collected and sent; Complete Time: 19:31 [facility] 04/02 18:51 Order name: NPO; Complete Time: 18:55 [facility] 04/02 18:51 Order name: O2 Per Protocol; Complete Time: 18:55 [facility] 04/02 18:51 Order name: O2 Sat Monitoring; Complete Time: 19:05 [facility] 04/02 18:51 Order name: Stroke Swallow Screen; Complete Time: 21:09 [facility] 04/02 19:14 Order name: Head Brain Wo Cont; Complete Time: 19:23 [facility] 04/02 19:35 Order name: Sherman; Complete Time: 22:27 [facility] 04/02 19:35 Order name: Bladder Scanner; Complete Time: 21:09 [facility] 04/02 20:20 Order name: CT Head Angio [facility] 04/02 20:20 Order name: CT Neck Angio; Complete Time: 21:33 [facility] 04/02 20:24 Order name: Head angio; Complete Time: 21:31 [facility] 04/03 09:07 Order name: MRI [facility] 04/03 09:35 Order name: MRI [facility] 04/03 09:37 Order name: MRI [facility] 04/03 10:32 Order name: US [facility] EC:36 Rate is 126 beats/min. Rhythm is irregularly irregular. QRS Lykens is Normal. MA interval pelon is normal. QRS interval is normal. QT interval is normal. No Q waves. T waves are Normal. No ST changes noted. Clinical impression: Atrial Fibrillation. Interpreted by me. Reviewed by me. Administered Medications: 19:04 Drug: Diltiazem 10 mg Route: IVP; Site: right antecubital; ph 19:40 Follow up: Response: Blood pressure is unchanged pf1 19:55 Drug: Lopressor (metoprolol TARTRATE) 50 mg Route: PO; pf1 22:41 Follow up: Response: No adverse reaction as6 19:55 Drug: Lopressor (metoprolol) 5 mg Route: IVP; Site: right antecubital; pf1 22:41 Follow up: Response: No adverse reaction as6 20:00 Drug: Pepcid (famotidine) 20 mg Route: IVP; Site: right antecubital; pf1 22:41 Follow up: Response: No adverse reaction as6 21:30 Drug: Aspirin 162 mg Route: PO; pf1 22:15 Follow up: Response: No adverse reaction; Pain is decreased pf1 21:45 Drug: D10 in Water [2 mL/kg] 125 ml Route: IVP; Site: left antecubital; pf1 22:14 Follow up: Response: No adverse reaction pf1 22:21 Follow up: Response: No adverse reaction pf1 21:45 Drug: foLIC Acid 1 mg Route: IVPB; Site: right antecubital; pf1 22:13 Follow up: Response: No adverse reaction; IV Status: Completed infusion pf1 21:50 Drug: Heparin ([place] Drip) 12 units/kg/hr - (HEParin 23801 units, D5W 500 ml) pf1 {Co-Signature: as6 (Jason Plata RN).} Route: IV; Rate: calculated rate; Site: right antecubital; 22:15 Follow up: Response: No adverse reaction pf1 22:40 Follow up: IV Status: Infusion continued upon admission; IV Intake: 50ml as6 22:00 Drug: Viscous Lidocaine Liquid (4 %) 5 ml Route: Mucous Membrane; pf1 22:20 Drug: Potassium Effervescent Tablet 50 mEq Route: PO; pf1 22:41 Follow up: Response: No adverse reaction as6 Disposition Summary: 04/02/22 20:27 Hospitalization Ordered Hospitalization Status: Inpatient Admission pelon Provider: Power Lau cha Condition: Fair pelon Problem: new pelon Symptoms: have worsened pelon Bed/Room Type: Standard pelon Location: Telemetry/MedSurg (Inpatient)(04/03/22 09:34) keyur Room Assignment: 403(04/03/22 09:34) keyur Diagnosis - Cerebral infarction, unspecified - subacute left posterior parietal 6 cm pelon - Persistent atrial fibrillation pelon - Hypokalemia pelon - Altered mental status, unspecified pelon - Cardiomegaly pelon - Edema, unspecified pelon - Unspecified combined systolic (congestive) and diastolic (congestive) heart failure pelon Forms: - Medication Reconciliation Form pelon - SBAR form pelon Signatures: Dispatcher [employer] EDMS Yovani Curry MD MD cha Attema, Lee, PILL MAKER-C PILL MAKER-Cla1 Shiela Aden RN RN ph Sara Marinelli RN RN cg Larry Chavez RN RN ja1 Larry Ferrer MD MD jr11 Ann ward RN RN pf1 Jason Plata RN as6 Jason Plata RN as6 Corrections: (The following items were deleted from the chart) 19:14 18:55 CT-STROKE BRAIN W/O CONTRAST+CT.RAD.BRZ ordered. EDMS EDMS 19:55 19:34 THYROID STIMULAT HORMONE+C.LAB.BRZ ordered. EDMS EDMS 19:55 19:34 PROBNP+C.LAB.BRZ ordered. EDMS EDMS 20:44 20:27 Telemetry/MedSurg (Inpatient) pelon cg 20:44 20:27 pelon cg 04/03 09:34 04/02 20:44 [facility] ER HOLD cg ja1 04/03 09:34 04/02 20:44 ERHOLD- cg ja1
--- NOTE | 2022-04-02 20:28 | ER ---
Nurse's Notes [facility] Name: Henrry Rios Age: 71 yrs Sex: Male : 1950 Arrival Date: 04/02/2022 Time: 18:35 Bed 26 Private MD: Diagnosis: Cerebral infarction, unspecified-subacute left posterior parietal 6 cm;Persistent atrial fibrillation;Hypokalemia;Altered mental status, unspecified;Cardiomegaly;Edema, unspecified;Unspecified combined systolic (congestive) and diastolic (congestive) heart failure Presentation: 04/02 18:37 Chief complaint: EMS states: Family called EMS for bilateral lower leg swelling, pt ph also confused, oriented to person which family states is not normal, cardiac rhythm a-fib/RVR w/ rate 90-135, hx of a-fib, also has hx of HTN but has not been on medications since October, 89, 20 G IV to RAC. 18:39 Coronavirus screen: Vaccine status: Patient reports receiving the 2nd dose of the covid ph vaccine. Ebola Screen: No symptoms or risks identified at this time. Initial Sepsis Screen: Does the patient meet any 2 criteria? No. Patient's initial sepsis screen is negative. Does the patient have a suspected source of infection? No. Patient's initial sepsis screen is negative. Risk Assessment: Do you want to hurt yourself or someone else? Patient reports no desire to harm self or others. Onset of symptoms was April 02, 2022. 18:39 Method Of Arrival: EMS: [facility] 18:39 Acuity: KALEY 2 ph Triage Assessment: 18:46 General: Appears in no apparent distress. comfortable, Behavior is calm, cooperative, ph appropriate for age. Pain: Denies pain. Neuro: Level of Consciousness is awake, alert, obeys commands, Oriented to person, place, Moves all extremities. Cardiovascular: Denies chest pain, shortness of breath, Edema is 4+ to left midcalf, left ankle, left foot, right midcalf, right ankle and right foot. Respiratory: Airway is patent Respiratory effort is even, unlabored. Derm: Skin is pink, warm \\T\\ dry. Musculoskeletal: Circulation, motion, and sensation intact. Range of motion: intact in all extremities. Historical: - Allergies: 18:42 No Known Allergies; ph - Home Meds: 18:42 Metoprolol Tartrate Oral [Active]; Lisinopril Oral [Active]; amlodipine oral [Active]; ph - PMHx: 18:42 Hypertensive disorder; stroke of unknown type-2019; Atrial fibrillation; ph - Immunization history:: Adult Immunizations unknown. - Social history:: Smoking status: Patient denies any tobacco usage or history of. Screenin:48 Abuse screen: Denies threats or abuse. Denies injuries from another. Nutritional ph screening: No deficits noted. Tuberculosis screening: No symptoms or risk factors identified. Fall Risk None identified. 19:32 unknown The patient is alert, able to follow commands. Patient alert and orientated x 2 pf1 The patient does not exhibit slurred or garbled speech The patient is not exhibiting difficulty speaking. The patient does not exhibit difficulty understanding words. The patient is able to swallow own secretions with no drooling or need for suction. Patient tolerated one teaspoon of water. No drooling, immediate coughing, gurgling, or clearing of the throat was noted. The patient tolerated 90mL of water. No drooling, immediate coughing, gurgling, or clearing of the throat was noted. The patient passed the bedside swallow screening. Oral medications may be given as ordered. Contact Physician for further diet orders. Assessment: 19:05 Reassessment: Pt taken to CT. ph 19:15 General: Appears in no apparent distress. comfortable, well groomed, well developed, pf1 Behavior is calm, cooperative, appropriate for age, quiet. Pain: Denies pain. Neuro: Level of Consciousness is awake, alert, obeys commands, Oriented to person, place, Inside Steward/Stewardess are equal bilaterally Moves all extremities. Full function Speech is normal, Facial symmetry appears normal, Pupils are PERRLA, Intact. Cardiovascular: Rhythm is atrial fibrillation with rapid ventricular response. GI: No deficits noted. 19:15 Cardiovascular: Edema is 4+ to left midcalf, left ankle, right midcalf and right ankle. pf1 Respiratory: Airway is patent Respiratory effort is even, unlabored, Respiratory pattern is regular, Breath sounds are diminished bilaterally. : No deficits noted. EENT: No deficits noted. Derm: Derm: No deficits noted. Musculoskeletal: No deficits noted. 19:47 General: Patient attempted urinal, no urine at this time. Patient stated "I haven't pf1 drink any water today.". Vital Signs: 18:39 BP 172 / 98; Pulse 126; Resp 18; Temp 97.9; Pulse Ox 96% on R/A; Weight 90.72 kg; ph Height 5 ft. 11 in. (180.34 cm); Pain 0/10; 19:32 BP 165 / 114; Pulse 107; Resp 15 S; Pulse Ox 97% on R/A; aa9 20:00 BP 165 / 116; Pulse 95; Resp 22; Temp 98.7; Pulse Ox 96% on R/A; pf1 21:00 BP 151 / 111; Pulse 95; Resp 16; Temp 98; Pulse Ox 96% on R/A; Pain 0/10; pf1 22:00 BP 151 / 112; Pulse 88; Resp 14; Temp 98; Pulse Ox 100% on R/A; Pain 0/10; pf1 22:00 Resp 16; Temp 97.8; Pulse Ox 100% ; Pain 0/10; pf1 18:39 Body Mass Index 27.89 (90.72 kg, 180.34 cm) ph ED Course: 18:35 Patient arrived in ED. ss 18:36 Larry Ferrer MD is Attending Physician. jr11 18:37 Shiela Aden, USAMA is Primary Nurse. ph 18:42 Triage completed. ph 18:46 Arm band placed on Patient placed in an exam room, on a stretcher, on campus monitor, ph on pulse oximetry. 18:49 Patient has correct armband on for positive identification. Placed in gown. Bed in low ph position. Call light in reach. Side rails up X 1. Client placed on continuous cardiac and pulse oximetry monitoring. NIBP monitoring applied. 19:00 Maintain EMS IV. Dressing intact. Good blood return noted. Site clean \\T\\ dry. Gauge \\T\\ pf 1 site: 20 gauge . IV Flushed right antecubital saline lock. 19:10 Attending Physician role handed off by Larry Ferrer MD pelon 19:10 Yovani Curry MD is Attending Physician. pelon 19:14 Head Brain Wo Cont In Process Unspecified. EDMS 19:31 SARS RAPID Sent. pf1 19:50 Stroke CXR 1 View In Process Unspecified. EDMS 20:26 Power Lau is Hospitalizing Provider. pelon 20:50 Bladder scan completed. 23ml noted on bladder scanner. pf1 21:19 Head angio In Process Unspecified. EDMS 21:19 CT Neck Angio In Process Unspecified. EDMS 21:45 Inserted saline lock: 20 gauge in left antecubital area, using aseptic technique. pf1 22:00 Sherman cath inserted, using sterile technique, 16 Fr., by oh, balloon inflated, to pf1 gravity drainage, urine specimen collected. returned Patient had a total urine output of 75ml. Patient tolerated well. 22:28 No provider procedures requiring assistance completed. pf1 22:40 Patient admitted, IV remains in place. pf1 Administered Medications: 19:04 Drug: Diltiazem 10 mg Route: IVP; Site: right antecubital; ph 19:40 Follow up: Response: Blood pressure is unchanged pf1 19:55 Drug: Lopressor (metoprolol TARTRATE) 50 mg Route: PO; pf1 22:41 Follow up: Response: No adverse reaction as6 19:55 Drug: Lopressor (metoprolol) 5 mg Route: IVP; Site: right antecubital; pf1 22:41 Follow up: Response: No adverse reaction as6 20:00 Drug: Pepcid (famotidine) 20 mg Route: IVP; Site: right antecubital; pf1 22:41 Follow up: Response: No adverse reaction as6 21:30 Drug: Aspirin 162 mg Route: PO; pf1 22:15 Follow up: Response: No adverse reaction; Pain is decreased pf1 21:45 Drug: D10 in Water [2 mL/kg] 125 ml Route: IVP; Site: left antecubital; pf1 22:14 Follow up: Response: No adverse reaction pf1 22:21 Follow up: Response: No adverse reaction pf1 21:45 Drug: foLIC Acid 1 mg Route: IVPB; Site: right antecubital; pf1 22:13 Follow up: Response: No adverse reaction; IV Status: Completed infusion pf1 21:50 Drug: Heparin ([place] Drip) 12 units/kg/hr - (HEParin 28795 units, D5W 500 ml) pf1 {Co-Signature: as6 (Jason Plata RN).} Route: IV; Rate: calculated rate; Site: right antecubital; 22:15 Follow up: Response: No adverse reaction pf1 22:40 Follow up: IV Status: Infusion continued upon admission; IV Intake: 50ml as6 22:00 Drug: Viscous Lidocaine Liquid (4 %) 5 ml Route: Mucous Membrane; pf1 22:20 Drug: Potassium Effervescent Tablet 50 mEq Route: PO; pf1 22:41 Follow up: Response: No adverse reaction as6 Medication: 18:49 VIS not applicable for this client. ph Intake: 22:00 PO: 330ml (Water); Total: 330ml. pf1 22:40 IV: 50ml; Total: 380ml. as6 Output: 22:00 Urine: 75ml (Sherman); Total: 75ml. pf1 Outcome: 20:27 Decision to Hospitalize by Provider. pelon 22:39 Admitted to ER Hold. Please see [facility] for further documentation. pf1 22:39 Condition: stable 22:39 Instructed on the need for admit. 04/03 13:58 Patient left the ED. ap3 Signatures: Dispatcher [employer] EDNJ Yovani Curry MD MD cha Smirch, Shelby, [place]AMA FORRESTER Shiela Aden RN RN ph Prokisch, Amanda, RN RN ap3 Jason Plata RN RN as6 Larry Ferrer MD MD jr11 Jonna Parham RN RN aa9 Ann ward RN RN pf1 Jason Plata RN as6 Corrections: (The following items were deleted from the chart) 04/02 18:42 18:37 Chief complaint: EMS states: Family called EMS for bilateral lower leg swelling, ph pt also confused, oriented to person which family states is not normal, cardiac rhythm a-fib/RVR ph 19:14 19:[address]-STROKE BRAIN W/O CONTRAST+CT.RAD.BRZ. EDMS EDMS 19:55 19:43 PROBNP+C.LAB.BRZ drawn and sent. pf1 EDMS 22:26 19:15 General: Appears in no apparent distress. comfortable, well groomed, well pf1 developed, Behavior is calm, cooperative, appropriate for age, quiet, pf1
[2022-04-02] MEDS ORDERED: LIDOCAINE VISCOUS 2% SOLN 15 ML UDC ONE (21:02)
[2022-04-02] MEDS ORDERED: ASPIRIN 81 MG CHEWABLE TABLET ONE (21:02)
[2022-04-02] MEDS ORDERED: FOLIC ACID 5 MG/ML VIAL ONE (21:05)
[2022-04-02] MEDS ORDERED: D10W 250 ML IV ONE (21:07)
[2022-04-02] MEDS ORDERED: HEPARIN/D5W 25,000 UNIT/500 ML BAG IV ONE (21:07)
--- NOTE | 2022-04-02 21:30 | RAD REPORT ---
EXAM DESCRIPTION: CT - Head angio - 04/02/2022 9:17 pm CLINICAL HISTORY: Neuro deficit, acute, stroke suspected Headache, CVA symptomology COMPARISON: Head Brain Wo Cont dated 04/02/2022; Head Brain Wo Cont dated 08/14/2021; Neck Angio date d 04/02/2022 TECHNIQUE: CT angiography of the head was performed with MIPs. All CT scans are performed using dose optimization technique as appropriate and may include automated exposure control or mA/KV adjustment according to patient size. FINDINGS: No evidence of large vessel occlusion. No evidence of aneurysm is detected. No flow-limiti ng stenosis or vascular malformation identified. Antegrade flow is seen in the vertebral arteries. The dominant right vertebral artery. Mild non-flow limiting narrowing of the mid basilar artery noted. The visualized dural venous sinuses are patent. IMPRESSION: No significant flow abnormality is detected.
--- NOTE | 2022-04-02 21:32 | RAD REPORT ---
EXAM DESCRIPTION: CT - Neck Angio - 04/02/2022 9:17 pm CLINICAL HISTORY: Neuro deficit, acute, stroke suspected Headache, drowsiness, CVA symptomology COMPARISON: No comparisons TECHNIQUE: CT angiography of the neck vessels was performed with MIPs. All CT scans are performed using dose optimization technique as appropriate and may include automated exposure control or mA/KV adjustment according to patient size. FINDINGS: A left aortic arch is identified with normal three vessel configuration of the great vesse ls. No significant flow abnormality is seen of the common carotid bilaterally. Mild mixed plaque is seen at the level of both carotid bulbs with narrowing of the carotid bulbs magdaleno mated less than 50% bilaterally based on NASCET criteria. Right vertebral artery is dominant with forward flow seen bilaterally. IMPRESSION: No significant carotid stenosis suspected bilaterally.
[2022-04-02] MEDS: HEPARIN/D5W 25,000 UNIT/500 ML BAG IV SCH (22:00)
[2022-04-02 22:12] LABS: Urine Blood 1+ (Negative); Urine Glucose Negative (Negative); Urine Protein 2+ (Negative); Urine Specific Gravity 1.025 (1.005-1.030); Urine pH 5.5 (5.0-7.0)
[2022-04-02] MEDS ORDERED: POTASSIUM 25 MEQ EFFERV TAB ONE (22:18)
--- NOTE | 2022-04-02 22:19 | P.HP ---
Certification for Inpatient Patient admitted to: Inpatient With expected LOS: >2 Midnights Patient will require the following post-hospital care: None Practitioner: I am a practitioner with admitting privileges, knowledge of patient current condition, hospital course, and medical plan of care. Services: Services provided to patient in accordance with Admission requirements found in Title 42 Section 412.3 of the Code of Federal Regulations Patient History Date of Service: 04/02/22 Reason for admission: CVA, NSTEMI, A. fib RVR History of Present Illness: 71-year-old male with history of atrial fibrillation, hypertension, CVA, alcohol abuse was brought into the emergency department by EMS family reports lower leg swelling, confusion. Family reports patient noncompliant with her medications since earlier this year his last known well is unknown as family is not at bedside and patient is confused. He was evaluated in the emergency department his labs were significant for sodium 149 potassium 3.0 high-sensitivity opponent 420.7 BNP 4073 chest x-ray showed moderate cardiomegaly, CT head without contrast showed a 6 cm area of diminished density left posterior parietal lobe compatible with subacute CVA. No hemorrhagic component evident. CTA of the head and neck were negative for acute findings. Patient was started on heparin drip in ED after discussion with neurology by ED physician. ED provider wishes to admit for further evaluation and management of CVA, A. fib RVR, NSTEMI. Allergies No Known Allergies Allergy (Unverified 08/14/21 14:06) Home Medications: Amlodipine [Norvasc*] 10 mg PO DAILY 30 Days #30 tab 08/15/21 Apixaban [Eliquis] 5 mg PO BID 30 Days #60 tablet 08/15/21 Atorvastatin Calcium 20 mg PO BEDTIME 30 Days #30 tablet 08/15/21 Metoprolol Tartrate [Lopressor*] 50 mg PO BID 30 Days #60 tab 08/15/21 Rivaroxaban [Xarelto] 20 mg PO DAILY AT SUPPER 30 Days #30 tablet 08/15/21 lisinopriL [Prinivil*] 20 mg PO DAILY 30 Days #30 tab 08/15/21 - Past Medical/Surgical History Diabetic: No -: HTN -: mini stroke -: A. fib -: Noncompliance Past Surgical History: Unable to obtain Psychosocial/ Personal History: Patient confused, unclear. - Family History Father History Unknown: Yes - Social History Smoking Status: Unknown if ever smoked Alcohol use: Yes CD- Drugs: No Caffeine use: Yes Place of Residence: Home Review of Systems is unable to be obtained Physical Examination - Physical Exam General: Alert, Oriented x1, Cooperative HEENT: Atraumatic, Normocephalic Neck: Supple Respiratory: Diminished Cardiovascular: Edema (3+ edema bilateral lower extremities), Irregular heart rate/rhythm (A. fib RVR) Capillary refill: <2 Seconds Gastrointestinal: Normal bowel sounds, Soft and benign Musculoskeletal: No contractures, No erythema, No tenderness Integumentary: No tenderness/swelling, No erythema Neurological: Normal speech, Normal strength at 5/5 x4 extr, Normal tone, Sensation intact, Other (NIH 3) - Studies Laboratory Data (last 24 hrs) 04/02/22 19:25: PT 12.7 H, INR 1.15, APTT 26.6 04/02/22 19:25: WBC 5.10, Hgb 14.7, Hct 45.2, Plt Count 166 04/02/22 19:25: Sodium 149 H, Potassium 3.0 L, BUN 17, Creatinine 1.30, Glucose 70 L, Magnesium 2.0, Total Bilirubin 2.5 H, AST 33, ALT 13, Alkaline Phosphatase 49 Assessment and Plan - Plan Assessment: Subacute ischemic CVA Acute metabolic encephalopathy related to above Atrial fibrillation with rapid ventricular response/noncompliance Pedal edema, cardiomegaly, elevated troponin/BNP suspect new onset CHF NSTEMI Hypertension Plan: Subacute ischemic CVA: Neurology consulted, continue heparin drip. Last known well unknown, not in the window for TNK. NIH 3. No occlusive findings on MRA head/neck. Will obtain MRI, echo, carotid Doppler, speech/occupational/physical therapy in place. Continue aspirin, statin as well. Acute metabolic encephalopathy related to above: Continue as above Atrial fibrillation with rapid ventricular response/noncompliance: Patient has not taken any of his medications since October of this year per family. Rate better controlled at this time. Continue with metoprolol, heparin drip. Cardiology consult in place and echocardiogram ordered. Pedal edema, cardiomegaly, elevated troponin/BNP suspect new onset CHF: Significant pedal edema noted, continue IV Lasix, echocardiogram ordered. We will trend troponins. Patient denies any chest pain currently. NSTEMI: Continue as above Hypertension: Initiated metoprolol, lisinopril. DVT PPX: Heparin drip Code status: Full Discharge Plan: Home Plan to discharge in: Greater than 2 days - Advance Directives Does patient have a Living Will: No Does patient have a Durable POA for Healthcare: No - Code Status/Comfort Care Code Status Assessed: Yes (Full code) Critical Care: No Time Spent Managing Pts Care (In Minutes): 70
[2022-04-02 22:31] LABS: Barbiturates NEGATIVE (NEGATIVE); Benzodiazepines NEGATIVE (NEGATIVE); Cocaine NEGATIVE (NEGATIVE); METHAMPHETAM NEGATIVE (NEGATIVE); Methadone NEGATIVE (NEGATIVE); Opiates NEGATIVE (NEGATIVE); Phencyclidine NEGATIVE (NEGATIVE); THC Cannibis NEGATIVE (NEGATIVE)
[2022-04-02 22:36] LABS: Specific Gravity 1.028 (1.005-1.030); Urine Bacteria <20 /HPF (<20); Urine Bilirubin 1+ (Negative); Urine Blood 1+ (Negative); Urine Clarity Clear (Clear); Urine Color Yellow (Yellow); Urine Glucose NEGATIVE (Negative); Urine Mucus 2+ /HPF (None Seen); Urine Protein 1+ (Negative); Urine Urobilinogen 2+ (Normal); Urine pH 5.5 (5.0-7.0)
[2022-04-03 01:20] VITALS: BMI 26.4
[2022-04-03] MEDS ORDERED: ACETAMINOPHEN 500 MG TAB PO PRN (03:28)
[2022-04-03] MEDS ORDERED: ONDANSETRON 4 MG/2 ML VIAL IV PRN (03:28)
[2022-04-03 04:49] LABS: Absolute Lymphocytes (CBC) 1.4 K/uL (0.7-4.9); Hematocrit 46.9 % (39.6-49.0); Lymphocytes % 22.8 % (15.3-44.8); RBC Red Blood Cell Count 5.22 M/uL (4.33-5.43)
[2022-04-03 05:25] LABS: Protime INR 1.27
[2022-04-03 07:50] LABS: Albumin 2.9 g/dL (3.4-5.0); Bilirubin Total 1.7 mg/dL (0.2-1.0); Magnesium 1.9 mg/dL (1.8-2.4); Potassium 3.3 mmol/L (3.5-5.1); Protein, Total 6.8 g/dL (6.4-8.2); Thyroid Stimulating Hormone 3.97 uIU/mL (0.360-3.740); Troponin High Sensitivity 397.4 pg/mL (<58.9)
[2022-04-03] MEDS ORDERED: lisinopriL 5 MG TAB ONE (08:12)
[2022-04-03] MEDS ORDERED: FOLIC ACID 1 MG TABLET ONE (08:12)
[2022-04-03] MEDS ORDERED: METOPROLOL TAR 50 MG TAB ONE (08:12)
[2022-04-03] MEDS ORDERED: FUROSEMIDE 40 MG/4 ML VIAL ONE (08:13)
[2022-04-03] MEDS ORDERED: ASPIRIN EC 81 MG TAB PO ONE (08:13)
[2022-04-03] MEDS: FUROSEMIDE 40 MG/4 ML VIAL IV SCH ×2 (09:00→16:43)
[2022-04-03] MEDS: FOLIC ACID 1 MG TABLET PO SCH (09:00)
[2022-04-03] MEDS: lisinopriL 5 MG TAB PO SCH (09:00)
[2022-04-03] MEDS: METOPROLOL TAR 50 MG TAB PO SCH ×2 (09:00→18:16)
[2022-04-03] MEDS: ASPIRIN EC 81 MG TAB PO SCH (09:00)
--- NOTE | 2022-04-03 09:06 | RAD REPORT ---
EXAM DESCRIPTION: MRI - Brain W/Wo Cont - 04/03/2022 8:42 am CLINICAL HISTORY: CVA COMPARISON: head CT April 02, 2022 MRI brain August 2021 TECHNIQUE: Axial, sagittal, and coronal magnetic images of the brain were obtained. 20 cc MultiHance administered intravenously FINDINGS: A 5.7 centimeter area of abnormal signal left occipital/parietal lobe. There is mild perip heral enhancement. Diffusion-weighted/ ADC mapping sequences demonstrate that this does not represent an acute infarct. It has the appearance of a late subacute infarction. Mild to moderate signal within periventricular, deep and subcortical white matter probably ischemic c hanges secondary to small vessel disease Small old lacunar infarcts thalamus and basal ganglia bilaterally The ventricles are normal in caliber. Diffusion-weighted/ ADC mapping sequences do not demonstrate evidence of an acute infarction. No abnormal enhancement within the brain is seen. An extra-axial fluid collection is not noted. Fluid within the sinuses/mastoids is not seen IMPRESSION: Late subacute infarct left occipital/parietal lobe
--- NOTE | 2022-04-03 09:33 | RAD REPORT ---
EXAM DESCRIPTION: MRI - MRA Neck W/Wo Cont - 04/03/2022 8:54 am CLINICAL HISTORY: CVA COMPARISON: August 2021 TECHNIQUE: Magnetic resonance angiogram of the neck was performed. 19 cc MultiHance was administered intravenously. 3D MIPS reconstruction performed FINDINGS: The common carotid, internal carotid and external carotid arteries do not demonstrate a si gnificant stenosis. Minimal plaque is present. The distal left vertebral artery is small. The right vertebral artery unremarkable No acute dissection seen IMPRESSION: The distal left vertebral artery is small. This probably is either a congenital anomaly or is chronic. No acute abnormality suspected NASCET criteria used. Mild 0-49% stenosis Moderate 50-69% stenosis Severe 70-99% stenosis
--- NOTE | 2022-04-03 09:36 | RAD REPORT ---
EXAM DESCRIPTION: MRI - MRA Head Wo Cont - 04/03/2022 9:05 am CLINICAL HISTORY: CVA COMPARISON: August 2021 TECHNIQUE: Magnetic resonance angiogram was performed. 3D MIPS reconstruction performed FINDINGS: Narrowing of portions of the anterior, middle and posterior cerebral arteries bilaterally are without significant change from the prior examination. Basilar and distal internal carotid arteries are unremarkable. An aneurysm is not displayed. IMPRESSION: Chronic stenosis involving anterior, middle and posterior cerebral arteries bilaterally probably related to atherosclerotic disease No acute abnormality is displayed
--- NOTE | 2022-04-03 10:32 | RAD REPORT ---
EXAM DESCRIPTION: USCarotid Artery Pkyufjdty83/30/2022 4:04 am CLINICAL HISTORY: syncope COMPARISON: None FINDINGS: The velocity of the right internal carotid artery equals 133 cm/sec. The right ICA/CCA rat io 1.3 The velocity of the left internal carotid artery equals 22 cm/sec. The left ICA/CCA ratio 1 Mild plaque is present within the carotid arteries. The vertebral arteries demonstrate antegrade flow IMPRESSION: Mild plaque within the carotid arteries without evidence of a hemodynamically significan t stenosis NASCET criteria used. Mild 0-49% stenosis Moderate 50-69% stenosis Severe 70-99% stenosis
--- NOTE | 2022-04-03 16:25 | EKG ---
Test Date: 2022-04-02 Test Time: 18:30:40 Member Services Coordinator: CIRO MEASUREMENT RESULTS: Intervals: Rate: 126 [place]: QRSD: 90 QT: 324 QTc: 469 [place]: P: [place]: QRS: 64 T: 243 INTERPRETIVE STATEMENTS: Atrial fibrillation with rapid ventricular response with premature ventricular or aberrantly conducted complexes ST & T wave abnormality, consider inferolateral ischemia or digitalis effect Abnormal ECG Compared to ECG 08/15/2021 10:04:18 Ventricular premature complex(es) now present ST (T wave) deviation now present T-wave abnormality no longer present Possible ischemia still present Electronically Signed On 04-03-22 16:23:02 PRECISION GRINDER by Devyn Romero
--- NOTE | 2022-04-03 17:32 | P.PN ---
Subjective Date of Service: 04/03/22 Chief Complaint: CVA, NSTEMI, A. fib RVR Patient currently has no complaint. Speech is normal. Seen eating his breakfast without any difficulty. He was feeding himself. Physical Examination - Vital Signs Temperature: 97.4 F Blood Pressure: 160/109 Pulse: 74 Respirations: 19 Pulse Ox (%): 95 - Studies Laboratory Data (last 24 hrs) 04/02/22 19:25: PT 12.7 H, INR 1.15, APTT 26.6 04/02/22 19:25: WBC 5.10, Hgb 14.7, Hct 45.2, Plt Count 166 04/02/22 19:25: Sodium 149 H, Potassium 3.0 L, BUN 17, Creatinine 1.30, Glucose 70 L, Magnesium 2.0, Total Bilirubin 2.5 H, AST 33, ALT 13, Alkaline Phosphatase 49 Assessment And Plan - Plan Physical Exam General: Alert, Oriented x1, Cooperative HEENT: Atraumatic, Normocephalic Neck: Supple Respiratory: Diminished Cardiovascular: Edema (3+ edema bilateral lower extremities), Irregular heart rate/rhythm (A. fib RVR) Capillary refill: <2 Seconds Gastrointestinal: Normal bowel sounds, Soft and benign Musculoskeletal: No contractures, No erythema, No tenderness Integumentary: No tenderness/swelling, No erythema Neurological: Normal speech, Normal strength at 5/5 x4 extr, Plan: Patient answers questions appropriately. Noted mild right facial deviation. MRI of the brain report late subacute infarct left occipital/parietal lobe. MRA of the brain:Chronic stenosis involving anterior, middle and posterior cerebral arteries bilaterally probably related to atherosclerotic disease. Continue aspirin Plavix, statins, folic acid. Echocardiogram is pending. Neurology consulted. Patient with atrial fibrillation. Continue heparin drip as recommended by neurology. May need to transition heparin drip to oral DOAC. Cardiology consulted for atrial fibrillation. Troponin mildly elevated but trended. Permissive hypertension. PT and OT. Speech evaluation.
[2022-04-03] MEDS: ATORVASTATIN 40 MG TAB PO SCH (20:36)
[2022-04-04] MEDS: HEPARIN/D5W 25,000 UNIT/500 ML BAG IV SCH (02:43)
[2022-04-04 06:05] LABS: Hematocrit 50.3 % (39.6-49.0); Lymphocytes % 19.7 % (15.3-44.8); MPV 10.2 fL (7.6-11.3); RBC Red Blood Cell Count 5.66 M/uL (4.33-5.43)
[2022-04-04 06:24] LABS: Bilirubin Total 1.8 mg/dL (0.2-1.0); Magnesium 1.8 mg/dL (1.8-2.4); Potassium 3.3 mmol/L (3.5-5.1); Protein, Total 7.2 g/dL (6.4-8.2)
[2022-04-04 06:54] LABS: Anisocytosis 1+; Blood Morphology Comment NOTED (NOT SEEN); Ovalocytes 1+; Platelet Estimate ADEQ
[2022-04-04 06:55] LABS: ACANTHOCYTE 2+
[2022-04-04] MEDS ORDERED: POTASSIUM 25 MEQ EFFERV TAB PO ONE (09:00)
[2022-04-04] MEDS ORDERED: MAGNESIUM SULFATE 1 gm IVPB 1 GM/100 ML BAG IV ONE (09:00)
[2022-04-04] MEDS: FUROSEMIDE 40 MG/4 ML VIAL IV SCH ×2 (09:07→17:17)
[2022-04-04] MEDS: FOLIC ACID 1 MG TABLET PO SCH (09:07)
[2022-04-04] MEDS: ASPIRIN EC 81 MG TAB PO SCH (09:07)
[2022-04-04] MEDS: lisinopriL 5 MG TAB PO SCH (09:07)
[2022-04-04] MEDS: METOPROLOL TAR 50 MG TAB PO SCH ×2 (09:07→20:24)
--- NOTE | 2022-04-04 14:26 | P.PN ---
Subjective Date of Service: 04/04/22 Chief Complaint: CVA, NSTEMI, A. fib RVR Patient is confused. Speech is normal. No issues overnight. Physical Examination - Vital Signs Temperature: 97.6 F Blood Pressure: 120/89 Pulse: 53 Respirations: 16 Pulse Ox (%): 95 Assessment And Plan - Plan Physical Exam General: Alert, Oriented x1, Cooperative HEENT: Atraumatic, Normocephalic Neck: Supple Respiratory: Diminished Cardiovascular: Edema (3+ edema bilateral lower extremities), Irregular heart rate/rhythm (A. fib RVR) Capillary refill: <2 Seconds Gastrointestinal: Normal bowel sounds, Soft and benign Musculoskeletal: No contractures, No erythema, No tenderness Integumentary: No tenderness/swelling, No erythema Neurological: Normal speech, Normal strength at 5/5 x4 extr, Plan: Patient is confused. Noted mild right facial deviation. MRI of the brain report late subacute infarct left occipital/parietal lobe. MRA of the brain:Chronic stenosis involving anterior, middle and posterior cerebral arteries bilaterally probably related to atherosclerotic disease. Continue aspirin Plavix, statins, folic acid. Echocardiogram is pending. Neurology consulted. Patient with atrial fibrillation. Continue heparin drip as recommended by neurology. May need to transition heparin drip to oral DOAC pending echocardiogram result to rule out cardiac thrombus. Of note patient has a history of impaired LV function from his previous echo done in 08/2021. Cardiology consulted for atrial fibrillation. Troponin mildly elevated but trended flat. No ACS. Permissive hypertension. PT and OT. Seen by speech. He is tolerating heart healthy diet. Anticipating disposition to skilled rehab. Patient may have to be transition to long-term care.
[2022-04-04 15:53] LABS: Magnesium 2.1 mg/dL (1.8-2.4); Phosphorus 3.3 mg/dL (2.5-4.9)
[2022-04-04] MEDS: ATORVASTATIN 40 MG TAB PO SCH (20:31)
[2022-04-05 05:05] LABS: Absolute Lymphocytes (CBC) 1.6 K/uL (0.7-4.9); Hematocrit 49.1 % (39.6-49.0); Lymphocytes % 26.8 % (15.3-44.8); MCV 88.5 fL (80-100); MPV 10.6 fL (7.6-11.3); RBC Red Blood Cell Count 5.55 M/uL (4.33-5.43)
[2022-04-05 05:33] LABS: Albumin 2.6 g/dL (3.4-5.0); Bilirubin Total 1.4 mg/dL (0.2-1.0); Protein, Total 6.5 g/dL (6.4-8.2)
[2022-04-05 05:34] LABS: Magnesium 1.9 mg/dL (1.8-2.4); Potassium 3.6 mmol/L (3.5-5.1)
[2022-04-05] MEDS: HEPARIN/D5W 25,000 UNIT/500 ML BAG IV SCH (05:38)
--- NOTE | 2022-04-05 06:57 | ECHO ---
HEIGHT: 6 ft 1 in WEIGHT: 200 lb 0.054 oz DATE OF STUDY: 04/04/[address]: Aleksandar Garcia NP 2-DIMENSIONAL: YES M.MODE: YES DOPPLER: YES COLOR FLOW: YES TDS: PORTABLE: YES DEFINITY: BUBBLE STUDY: DIAGNOSIS: ATRIAL FIBRILLATION/ CONGESTIVE HEART FALIURE/ NO ST ELEVATION MYOCARDIAL INFARCTION CARDIAC HISTORY: CATHERIZATION: SURGERY: PROSTHETIC VALVE: PACEMAKER: MEASUREMENTS (cm) DIASTOLIC (NORMALS) SYSTOLIC (NORMALS) IVSd 1.2 (0.6-1.2) LA Diam 3.8 (1.9-4.0) LVEF 24% LVIDd 4.3 (3.5-5.7) LVIDs 3.8 (2.0-3.5) %FS 11% LVPWd 1.5 (0.6-1.2) Ao Diam 3.4 (2.0-3.7) 2 DIMENSIONAL ASSESSMENT: RIGHT ATRIUM: NORMAL LEFT ATRIUM: NORMAL RIGHT VENTRICLE: NORMAL LEFT VENTRICLE: DEPRESSED EJECTION FRACTION TRICUSPID VALVE: MODERATE TRICUSPID REGURGITATION MITRAL VALVE: MILD MITRAL REGURGITATION PULMONIC VALVE: MILD PULMONIC REGURGITATION AORTIC VALVE: NORMAL PERICARDIAL EFFUSION: NONE AORTIC ROOT: NORMAL LEFT VENTRICULAR WALL MOTION: SEVERE GLOBAL HYPOKINESIS DOPPLER/COLOR FLOW: SEE BELOW COMMENTS: 1. SEVERELY DEPRESSED LEFT VENTRICULAR EJECTON FRACTION 20-25% 2. SEVERE GLOBAL HYPOKINESIS 3. MILD MITRAL REGURGITATION 4. MILD TO MODERATE TRICUSPID REGURGITATION 5. PULMONARY HYPERTENSION WITH RIGHT VENTRICULAR SYSTOLIC PRESSURE OF 37 mmHg PLUS RIGHT ATRIAL PRESSURE TECHNOLOGIST: JAMIA BALTAZAR
[2022-04-05] MEDS: METOPROLOL TAR 50 MG TAB PO SCH (09:09)
[2022-04-05] MEDS: lisinopriL 5 MG TAB PO SCH (09:09)
[2022-04-05] MEDS: ASPIRIN EC 81 MG TAB PO SCH (09:10)
[2022-04-05] MEDS: FOLIC ACID 1 MG TABLET PO SCH (09:10)
[2022-04-05] MEDS: FUROSEMIDE 40 MG/4 ML VIAL IV SCH (09:10)
[2022-04-05 09:11] VITALS: BP 138/91
[2022-04-05 09:37] VITALS: TEMP 96.9
[2022-04-05 10:08] LABS: SARS-COV-2 RT PCR NEGATIVE (NEGATIVE)
[2022-04-05 11:25] VITALS: O2SAT 106
--- NOTE | 2022-04-05 19:21 | P.DS ---
Admission Date: 04/02/22 Discharge Date: 04/05/22 Disposition: ROUTINE DISCHARGE Discharge Condition: FAIR Reason for Admission: CVA, NSTEMI, A. fib RVR - Problems (1) Acute CVA (cerebrovascular accident) Status: Acute (2) Atrial fibrillation Status: Acute (3) NSTEMI (non-ST elevated myocardial infarction) Status: Acute (4) Hypertension Status: Acute (5) Chronic systolic heart failure Status: Acute Brief History of Present Illness: 71-year-old male with history of atrial fibrillation, hypertension, CVA, alcohol abuse was brought into the emergency department by EMS. Family reported lower leg swelling, confusion. Family reported patient has been noncompliant with his medications since earlier this year. His last known well is unknown. He was evaluated in the emergency department. His labs were significant for sodium 149 potassium 3.0 high-sensitivity opponent 420.7 BNP 4073 chest x-ray showed moderate cardiomegaly, CT head without contrast showed a 6 cm area of diminished density left posterior parietal lobe compatible with subacute CVA. No hemorrhagic component evident. CTA of the head and neck were negative for acute findings. Patient was started on heparin drip in ED after discussion with neurology by ED physician. Patient admitted for further management. Hospital Course: Patient admitted to the medical floor Patient noted to be confused. Confusion likely secondary to cognitive deficit from stroke. Noted mild right facial deviation. MRI of the brain reported late subacute infarct left occipital/parietal lobe. MRA of the brain:Chronic stenosis involving anterior, middle and posterior cerebral arteries bilaterally probably related to atherosclerotic disease. Patient treated with aspirin Plavix, statins, folic acid. Echocardiogram: Showed EF of 20 to 25%, no thrombus identified. Patient seen by neurology Patient with atrial fibrillation. Was treated with heparin drip and then transitioned to Eliquis on discharge. Cardiology consulted for atrial fibrillation. Troponin mildly elevated but trended flat. No ACS. Elevated troponin deemed secondary to demand ischemia Seen by PT and OT and speech. He tolerated heart healthy diet. Patient with impaired gait, skilled rehab recommended by PT. Patient accepted to skilled rehab. He is clinically stable for discharge. Vital Signs/Physical Exam: Temp Pulse Resp BP Pulse Ox 96.9 F 106 H 18 138/91 H 97 04/05/22 08:00 04/05/22 09:10 04/05/22 04:00 04/05/22 09:10 04/05/22 04:00 General: In no apparent distress, Other (Cognitive deficit) HEENT: Mucous membr. moist/pink Neck: JVD not distended Respiratory: Clear to auscultation bilaterally, Normal air movement Cardiovascular: No edema, Normal S1 S2, Irregular heart rate/rhythm Gastrointestinal: Soft and benign, Non-distended, No tenderness Musculoskeletal: No swelling Integumentary: No rashes, No cyanosis Neurological: Other (No limb weakness.) Laboratory Data at Discharge: WBC 6.10 K/uL (4.3-10.9) 04/05/22 04:17 Hgb 16.2 g/dL (13.6-17.9) 04/05/22 04:17 Hct 49.1 % (39.6-49.0) H 04/05/22 04:17 Plt Count 191 K/uL (152-406) 04/05/22 04:17 PT 14.0 SECONDS (9.5-12.5) H 04/03/22 04:49 INR 1.27 04/03/22 04:49 APTT Cancelled 04/05/22 10:00 Sodium 142 mmol/L (136-145) 04/05/22 04:17 Potassium 3.6 mmol/L (3.5-5.1) 04/05/22 04:17 BUN 25 mg/dL (7-18) H 04/05/22 04:17 Creatinine 1.33 mg/dL (0.55-1.3) H 04/05/22 04:17 Glucose 91 mg/dL (74-106) 04/05/22 04:17 Phosphorus 3.3 mg/dL (2.5-4.9) 04/04/22 15:32 Magnesium 1.9 mg/dL (1.8-2.4) 04/05/22 04:17 Total Bilirubin 1.4 mg/dL (0.2-1.0) H 04/05/22 04:17 AST 30 U/L (15-37) 04/05/22 04:17 ALT 12 U/L (12-78) 04/05/22 04:17 Alkaline Phosphatase 52 U/L (45-117) 04/05/22 04:17 Triglycerides 115 mg/dL (<150) 04/03/22 07:11 Cholesterol 170 mg/dL (<200) 04/03/22 07:11 HDL Cholesterol 56 mg/dL (40-60) 04/03/22 07:11 Cholesterol/HDL Ratio 3.04 04/03/22 07:11 Home Medications: Apixaban [Eliquis] 5 mg PO BID 30 Days #60 tablet 08/15/21 Atorvastatin Calcium 20 mg PO BEDTIME 30 Days #30 tablet 08/15/21 Metoprolol Tartrate [Lopressor*] 50 mg PO BID 30 Days #60 tab 08/15/21 lisinopriL [Prinivil*] 20 mg PO DAILY 30 Days #30 tab 08/15/21 Aspirin [Aspirin EC 81 MG] 81 mg PO DAILY #30 tab 04/05/22 Atorvastatin Calcium [Lipitor] 40 mg PO BEDTIME #30 tab 04/05/22 Folic Acid 1 mg PO DAILY #30 tab 04/05/22 New Medications: Aspirin [Aspirin EC 81 MG] 81 mg PO DAILY #30 tab Folic Acid 1 mg PO DAILY #30 tab Atorvastatin Calcium [Lipitor] 40 mg PO BEDTIME #30 tab Followup: NONE,NONE [Primary Care Provider] - (follow up in 1-2 weeks) Time spent managing pt's care (in minutes): 40
--- NOTE | 2022-04-06 17:54 | PN ---
Date of Progress Note: 04/05/2022 We have been following Mr. Rios for atrial fibrillation. It is now rate controlled, elevated trop onin. Ejection fraction of 20% to 25% on recent echo. CVA with negative carotid and negative MRI. He remains on heparin. He is doing much better with his vital signs being normal. His creatinine brennan s improved. He is on aspirin, Lipitor, Lasix, heparin, metoprolol, potassium, and lisinopril. I am comfortable with him going home whenever it is okay with Dr. Lau. He will need an outpatient Jannie scan and maybe a catheterization, depending on his creatinine. He should go home on anticoagulation as Xarelto and Eliquis and I will see him in the office in the very near future. GERALDINE/RICA Voice ID: [id number] Report ID: [id number]
--- NOTE | 2022-04-06 18:03 | PN ---
Date of Progress Note: 04/04/2022 Mr. Rios came in with CHF, CVA, elevated troponin, and atrial fibrillation. He came in with blood pressure 170/110. He is on aspirin, heparin, Lipitor, metoprolol, Lasix, lisinopril, and potassium. Echocardiogram showed an ejection fraction of 20% to 25% with severe global hypokinesis, mild pulmo nary hypertension, mild mitral regurgitation. Mr. Rios obviously presents a challenge. He is on appropriate therapy including beta blockers, LESLIE inhibitors, and Lasix and we will continue those whi le watching creatinine. We will continue his heparin right now. He should have an outpatient Lexisc an and maybe even a heart catheterization as an outpatient to define his coronary anatomy. When he g oes home, we should probably put him on Xarelto or Eliquis. I will discuss the case further with Dr. Lau for now. His blood pressure has improved. His pulse has improved. He is still in atrial fi brillation, but his rate is 57. His blood pressure is 119/80. O2 saturation is 95%. Again, continu e present regimen. His creatinine has gone down to 1.33. We will continue to follow him. GERALDINE/RICA Voice ID: [id number] Report ID: [id number]
--- NOTE | 2022-04-06 18:39 | CON ---
Date of Consultation: 04/03/2022 Reason For Consultation: CVA, elevated troponin, atrial fibrillation, and congestive heart failure. History Of Present Illness: Mr. Rios is a 71-year-old male who has a history of hypertension, CVA in 2019, atrial fibrillation, chronic systolic congestive heart failure with an ejection fraction of 43% in 08/2021. He came in with severe congestive heart failure, atrial fibrillation that is chroni c, elevated troponin, and hypokalemia. Carotid Doppler was negative. MRI of the brain showed chroni c ischemic changes. His creatinine was 1.3. He was hypertensive with blood pressure of 170/110. Hi s main complaint when he came in was pedal edema to right foot and ankle as well as left foot pain. He denied any chest pain. Denied any nausea, vomiting, or diaphoresis. He denied any palpitations o r syncope. Past Medical History: As stated above. Allergies: NONE. Review of Systems: Negative. Social History: Negative. Family History: Negative. Medications: Present medications include aspirin, heparin, Lipitor, Lasix, lisinopril, metoprolol, a nd potassium. Physical Examination: Vital Signs: He was in atrial fibrillation at rate of 131. Blood pressure is 170/110. General: He is alert and oriented x3. HEENT: Negative. Neck: Supple with no bruit, lymphadenopathy, JVD, or thyromegaly. Chest: Clear to auscultation and percussion. Cardiac: Atrial fibrillation. Abdomen: Benign. Extremities: 2+ edema to the knees. Skin: Dry and intact. Neurologic: He was nonfocal. Pulses were present distally bilaterally. Diagnostic Data: Troponin was 367. Potassium is 3.3, creatinine is 1.30. MRI was positive for clinical operations specialist brigitte ischemic changes. Carotid Doppler was negative. Ejection fraction of 43% in 08/2021. Impression And Plan: 1.[id number] systolic congestive heart failure. 2.Elevated troponin secondary to demand ischemia and congestive heart failure. 3.Cerebrovascular accident. 4.Atrial fibrillation, chronic with rapid ventricular response. Echocardiogram is pending. I agree with heparin, metoprolol, aspirin, Lipitor, Lasix, lisinopril, an d potassium supplementation. We need to get his blood pressure better controlled. We may have to ad nico Garcia down the road, but we will see how he does with his present regimen. I think he definitely should be anticoagulated when he goes home. I think he should have a Lexiscan as an outpatient as stanley kaplan. We will continue to follow him. DEACON Voice ID: [id number] Report ID: [id number]
== END 2022-04-05 11:31 | DRG 64 ==
LOC: ER 18:22 → ERHOLD 22:02 → 4TH 04-03 13:23
PROVIDERS: ADMIT Internal Medicine; ATTEND Internal Medicine
DX: I63.9 Cerebral infarction, unspecified (principal); G93.41 Metabolic encephalopathy; I48.19 Other persistent atrial fibrillation; I50.22 Chronic systolic (congestive) heart failure; I24.8 Other forms of acute ischemic heart disease; I11.0 Hypertensive heart disease with heart failure; E87.6 Hypokalemia; I27.20 Pulmonary hypertension, unspecified; I07.1 Rheumatic tricuspid insufficiency; R29.703 NIHSS score 3; Z79.82 Long term (current) use of aspirin; Z79.02 Long term (current) use of antithrombotics/antiplatelets; Z91.14 Patient's other noncompliance with medication regimen; Z79.01 Long term (current) use of anticoagulants; Z79.899 Other long term (current) drug therapy; Z20.822 Contact with and (suspected) exposure to COVID-19
CPT/HCPCS: 0240U; 36415; 51702; 70450; 70496; 70498; 70544; 70549; 70553; 71045; 80048; 80053; 80061; 80076; 80307; 81001; 81003; 83735; 83880; 84100; 84132; 84439; 84443; 84484; 85025; 85610; 85730; 87811; 92507; 92523; 93005; 93306; 93880; 96365; 96375; 97116; 97161; 97530; 99285; A9577; J1644; J1940; J3475; Q9967

== ENCOUNTER 2022-04-12 08:57 | Inpatient (IN) | payer OTHER ==
--- OUTSIDE RECORDS SUMMARY | 2022-04-12 09:00 | XMS REPORT | Continuity of Care Document ---
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 Social History Social Habit Start Date Stop Date Quantity Comments Source History of Tobacco Use Co mmon [facility] Sex Assigned At Com mon [facility] Smoking Status Start Date Stop Date Source Never Smoker [facility] Medications Ordered Filled Start Stop Current Ordering [...] Comments Source height 2021-11-06 15:30:00 76.00 [in_i] [facility] weight 2021-11-06 15:30:00 188.4 [lb_av] [facility] temperature 2021-11-06 15:30:00 97.6 [degF] [facility] bmi 2021-11-06 15:30:00 22.93 kg/m2 [facility] oximetry 2021-11-06 15:30:00 98 % [facility] respiratory rate 2021-11-06 15:30:00 16 /min Comm on [facility] blood pressure 2021-11-06 15:30:00 160 mm[Hg] [facility] systolic [facility] blood pressure 2021-11-06 15:30:00 100 mm[Hg] [facility] diastolic [facility] Procedures This patient has no known procedures. Encounters Start End Encounter Admission Attending Care Care Encounter Source Date/Time Date/Time Type Type Clinicians Facility Department ID 2021-11-06 Outpatient [facility] [id number] Common 15:24:03 [id number] [facility] 2021-11-06 2021-11-06 OFFICE [facility] [id number] Co mmon 00:00:00 00:00:00 VISIT [facility] it PT LEVEL 4 [facility] Results This patient has no known results.
--- NOTE | 2022-04-12 09:32 | RAD REPORT ---
EXAM DESCRIPTION: CT - Ct Stroke Brain Wo Cont - 04/12/2022 9:22 am CLINICAL HISTORY: anticoagulation toxicity Headache, CVA history COMPARISON: Head angio dated 04/02/2022; Head Brain Wo Cont dated 04/02/2022 TECHNIQUE: All CT scans are performed using dose optimization technique as appropriate and may inclu de automated exposure control or mA/KV adjustment according to patient size. FINDINGS: No intracranial hemorrhage, hydrocephalus or extra-axial fluid collection.Moderate brain a trophy is present with moderate periventricular and deep white matter chronic microvascular ischemia. . Area of subacute infarct again noted in the left parietal lobe. The paranasal sinuses and mastoids are clear. The calvarium is intact. IMPRESSION: No acute intracranial abnormality. Subacute infarct noted left parietal lobe without ev idence of hemorrhagic conversion. The findings were discussed with NAVEED Valadez in the ER on 04/12/2022 at 9:21 a.m. by telephone .
[2022-04-12 10:22] LABS: Absolute Lymphocytes (CBC) 1.1 K/uL (0.7-4.9); Hematocrit 43.1 % (39.6-49.0); Lymphocytes % 17.1 % (15.3-44.8); MCV 87.6 fL (80-100); MPV 9.1 fL (7.6-11.3); RBC Red Blood Cell Count 4.92 M/uL (4.33-5.43)
[2022-04-12 10:39] LABS: Albumin 2.7 g/dL (3.4-5.0); Bilirubin Direct 0.8 mg/dL (0-0.2); Bilirubin Total 1.8 mg/dL (0.2-1.0); Magnesium 1.9 mg/dL (1.6-2.4); Protein, Total 6.7 g/dL (6.4-8.2); Troponin High Sensitivity 257.9 pg/mL (<58.9)
[2022-04-12 10:41] LABS: Potassium 2.3 mmol/L (3.5-5.1)
[2022-04-12] MEDS ORDERED: KCL 20 MEQ/100 mL IVPB 100 ML IV ONE ×2 (11:09→22:42)
[2022-04-12] MEDS ORDERED: NA CHLORIDE 0.9% 1,000 ML ONE ×2 (11:09→13:41)
--- NOTE | 2022-04-12 11:12 | RAD REPORT ---
EXAM DESCRIPTION: RAD - Chest Single View - 04/12/2022 9:51 am CLINICAL HISTORY: anticoagulation toxicity Chest pain. COMPARISON: Chest Single View dated 04/02/2022; Chest Single View dated 08/14/2021 FINDINGS: Portable technique limits examination quality. The lungs are underinflated resulting in vascular prominence. The heart is mildly prominent in size. No displaced fractures. IMPRESSION: No acute intrathoracic process suspected.
--- NOTE | 2022-04-12 12:00 | ER ---
Nurse's Notes [facility] Name: Henrry Rios Age: 71 yrs Sex: Male : 1950 Arrival Date: 04/12/2022 Time: 09:04 Bed 26 Private MD: Diagnosis: Hypokalemia;Bleeding gingival on Xarelto;Chronic atrial fibrillation Presentation: 04/12 09:51 Chief complaint: Patient states: from [facility]; recently placed on blood jh5 thinners for stroke - now bleeding from gums. Coronavirus screen: Vaccine status: Patient reports receiving the 2nd dose of the covid vaccine. Client denies travel out of the [place] in the last 14 days. Ebola Screen: Patient negative for fever greater than or equal to 101.5 degrees Fahrenheit, and additional compatible Ebola Virus Disease symptoms Patient denies exposure to infectious person. Patient denies travel to an Ebola-affected area in the 21 days before illness onset. Initial Sepsis Screen: Does the patient meet any 2 criteria? No. Patient's initial sepsis screen is negative. Does the patient have a suspected source of infection? No. Patient's initial sepsis screen is negative. Risk Assessment: Do you want to hurt yourself or someone else? Patient reports no desire to harm self or others. 09:51 Method Of Arrival: EMS: [facility] 09:51 Acuity: KALEY 3 [facility] 09:54 Onset of symptoms was April 08, 2022. [facility] Triage Assessment: 09:53 General: Appears in no apparent distress. slender, Behavior is calm, cooperative, 5 appropriate for age. Pain: Denies pain. Historical: - Allergies: 15:34 No Known Allergies; hb - PMHx: 09:53 Atrial fibrillation; Hypertensive disorder; stroke of unknown type-2019; 5 - Immunization history:: Adult Immunizations up to date. - Social history:: Smoking status: Patient denies any tobacco usage or history of. Screenin:54 Abuse screen: Denies threats or abuse. Denies injuries from another. Nutritional [facility] screening: No deficits noted. Tuberculosis screening: No symptoms or risk factors identified. Fall Risk Secondary diagnosis (15 points) impaired mobility, CVA. Assessment: 13:43 Reassessment: Patient appears in no apparent distress at this time. Patient and/or hb family updated on plan of care and expected duration. Pain level reassessed. 15:08 Reassessment: Patient appears in no apparent distress at this time. No changes from hb previously documented assessment. Patient and/or family updated on plan of care and expected duration. Pain level reassessed. 16:00 Reassessment: Patient appears in no apparent distress at this time. Patient and/or hb family updated on plan of care and expected duration. Pain level reassessed. Patient is alert, oriented x 3, equal unlabored respirations, skin warm/dry/pink. 17:00 Reassessment: Patient appears in no apparent distress at this time. No changes from hb previously documented assessment. Patient and/or family updated on plan of care and expected duration. Pain level reassessed. 18:31 Reassessment: Patient appears in no apparent distress at this time. Patient and/or hb family updated on plan of care and expected duration. Pain level reassessed. Patient is alert, oriented x 3, equal unlabored respirations, skin warm/dry/pink. Vital Signs: 09:51 BP 137 / 88; Pulse 78; Resp 16; Temp 98.8; Pulse Ox 94% ; Weight 78.02 kg; Height 5 ft. jh5 9 in. (175.26 cm); Pain 0/10; 10:18 BP 141 / 93; Pulse 100; Resp 14; Pulse Ox 98% on R/A; jd3 13:43 BP 148 / 97; Pulse 108; Resp 17; Pulse Ox 100% on R/A; hb 15:08 BP 159 / 101; Pulse 108; Resp 15; Pulse Ox 100% ; hb 15:35 BP 157 / 98; Pulse 125; Resp 17; Pulse Ox 99% ; hb 17:38 BP 161 / 93; Pulse 143; Resp 20; Pulse Ox 100% on R/A; hb 18:31 BP 142 / 95; Pulse 112; Resp 17; Pulse Ox 99% on R/A; hb 09:51 Body Mass Index 25.40 (78.02 kg, 175.26 cm) jh5 [place] Coma Score: 10:04 Eye Response: spontaneous(4). Verbal Response: oriented(5). Motor Response: obeys snw commands(6). Total: 15. NIH Stroke Scale Scores: 10:04 NIHSS Score: 1 snw ED Course: 09:04 Patient arrived in ED. snw 09:04 Radha Lawrence FNP-C is PHCP. snw 09:04 William Ryan MD is Attending Physician. snw 09:24 Ct Stroke Brain Wo Cont In Process Unspecified. EDMS 09:52 XRAY Chest (1 view) In Process Unspecified. EDMS 09:53 Triage completed. jh5 09:53 Arm band placed on right wrist. jh5 09:54 Patient has correct armband on for positive identification. Side rails up X2. jh5 09:54 No provider procedures requiring assistance completed. Inserted saline lock: 20 gauge jh5 in left antecubital area, using aseptic technique. 11:14 Bárbara Puente, USAMA is Primary Nurse. jh5 11:58 Joshua Louis MD is Hospitalizing Provider. snw 19:47 Patient admitted, IV remains in place. hb Administered Medications: 11:31 Drug: NS 0.9% 1000 ml Route: IV; Rate: 50 ml/hr; Site: left antecubital; jh5 11:31 Drug: Potassium Chloride 20 mEq Route: IV; Rate: calculated rate; Site: left jh5 antecubital; 13:40 Follow up: Response: No adverse reaction; IV Status: Completed infusion; IV Intake: hb 100ml 13:43 Drug: Potassium Chloride 20 mEq Route: IV; Rate: calculated rate; Site: left hb antecubital; 15:44 Follow up: Response: No adverse reaction; IV Status: Completed infusion; IV Intake: hb 100ml 15:45 Drug: Potassium Chloride 20 mEq Route: IV; Rate: calculated rate; Site: right hb antecubital; 17:45 Follow up: Response: No adverse reaction; IV Status: Completed infusion; IV Intake: hb 100ml Medication: 09:54 VIS not applicable for this client. jh5 Intake: 13:40 IV: 100ml; Total: 100ml. hb 15:44 IV: 100ml; Total: 200ml. hb 17:45 IV: 100ml; Total: 300ml. hb Outcome: 11:59 Decision to Hospitalize by Provider. snw 19:47 Admitted to ER Hold. Please see [facility] for further documentation. hb 19:47 Condition: stable 19:47 Instructed on the need for admit, Demonstrated understanding of instructions. 04/13 10:07 Patient left the ED. ko1 NIH Stroke Scale - NIH Stroke Score Date: 04/12/2022 Time: 10:04 Total Score = 1 1a. Level of Consciousness (LOC) - 0(Alert) 1b. Level of Consciousness (LOC) (Month \T\ Age) - 0(Both) 1c. LOC Commands (Open \T\ Closes Eyes/Radio Recorder) - 0(Both) 2. Best Gaze (Lateral Gaze Paresis) - 0(Normal) 3. Visual Field Loss - 0(No visual loss) 4. Facial Palsy - 0(Normal) 5a. Left Arm: Motor (10-second hold) - 0(No drift) 5b. Right Arm: Motor (10-second hold) - 0(No drift) 6a. Left Leg: Motor (5-second hold - always test supine) - 1(Drift) 6b. Right Leg: Motor (5-second hold - always test supine) - 0(No drift) 7. Limb Ataxia (finger/nose \T\ heel/chappell - test with eyes open) - 0(Absent) 8. Sensory Loss (pinprick arms/legs/face) - 0(Normal) 9. Best Language: Aphasia (description/naming/reading) - 0(No aphasia) 10. Dysarthria (speech clarity - read or repeat words) - 0(Normal) 11. Extinction and Inattention (visual/tactile/auditory/spatial/personal) - 0(No abnormality) Initials: snw Signatures: Dispatcher [employer] EDMS Radha Lawrence, ACTIVATED SLUDGE ATTENDANT-C ACTIVATED SLUDGE ATTENDANT-Csnw Chayito Kessler RN RN hb Davies, Jonathon, RN RN jd3 Bárbara Puente RN RN jh5 Michelle Sheth RN RN ko1
--- NOTE | 2022-04-12 12:00 | EDPHYS ---
Physician Documentation [facility] Name: Henrry Rios Age: 71 yrs Sex: Male : 1950 Arrival Date: 04/12/2022 Time: 09:04 Bed 26 Private MD: ED Physician William Ryan HPI: 04/12 10:07 This 71 yrs old Black Male presents to ER via EMS with complaints of bleeding. snw 10:07 The patient presents with bleeding. The problem is located in the tongue. Onset: The snw symptoms/episode began/occurred suddenly. Duration: The symptoms are continuous, and are unchanged since they started. Associated signs and symptoms: The patient has no apparent associated signs or symptoms. Severity of symptoms: At their worst the symptoms were moderate. The patient has not experienced similar symptoms in the past. pt had a recent CVA, no new CT head changes today but pt is bleeding from gingiva. Historical: - Allergies: 15:34 No Known Allergies; hb - PMHx: 09:53 Atrial fibrillation; Hypertensive disorder; stroke of unknown type-2019; 5 - Immunization history:: Adult Immunizations up to date. - Social history:: Smoking status: Patient denies any tobacco usage or history of. ROS: 10:06 Constitutional: Negative for fever, chills, and weight loss, Eyes: Negative for injury, snw pain, redness, and discharge, ENT: Negative for injury, pain, and discharge, + bleeding Neck: Negative for injury, pain, and swelling, Cardiovascular: Negative for chest pain, palpitations, and edema, Respiratory: Negative for shortness of breath, cough, wheezing, and pleuritic chest pain, Abdomen/GI: Negative for abdominal pain, nausea, vomiting, diarrhea, and constipation, Back: Negative for injury and pain, : Negative for injury, bleeding, discharge, and swelling, MS/Extremity: Negative for injury and deformity, Skin: Negative for injury, rash, and discoloration, Neuro: Negative for headache, weakness, numbness, tingling, and seizure, Psych: Negative for depression, anxiety, suicide ideation, homicidal ideation, and hallucinations. Exam: 10:04 Constitutional: This is a well developed, well nourished patient who is awake, alert, snw and in no acute distress. Head/Face: Normocephalic, atraumatic. Eyes: Pupils equal round and reactive to light, extra-ocular motions intact. Lids and lashes normal. Conjunctiva and sclera are non-icteric and not injected. Cornea within normal limits. Periorbital areas with no swelling, redness, or edema. 10:04 Neck: Trachea midline, no thyromegaly or masses palpated, and no cervical lymphadenopathy. Supple, full range of motion without nuchal rigidity, or vertebral point tenderness. No Meningismus. Chest/axilla: Normal chest wall appearance and motion. Nontender with no deformity. No lesions are appreciated. Cardiovascular: Regular rate and rhythm with a normal S1 and S2. No gallops, murmurs, or rubs. Normal PMI, no JVD. No pulse deficits. Respiratory: Lungs have equal breath sounds bilaterally, clear to auscultation and percussion. No rales, rhonchi or wheezes noted. No increased work of breathing, no retractions or nasal flaring. Abdomen/GI: Soft, non-tender, with normal bowel sounds. No distension or tympany. No guarding or rebound. No evidence of tenderness throughout. Back: No spinal tenderness. No costovertebral tenderness. Full range of motion. Skin: Warm, dry with normal turgor. Normal color with no rashes, no lesions, and no evidence of cellulitis. MS/ Extremity: Pulses equal, no cyanosis. Neurovascular intact. Full, normal range of motion. Neuro: Awake and alert, GCS 15, oriented to person, place, time, and situation. Cranial nerves II-XII grossly intact. Motor strength 5/5 in all extremities. Sensory grossly intact. Cerebellar exam normal. Normal gait. Psych: Awake, alert, with orientation to person, place and time. Behavior, mood, and affect are within normal limits. 10:04 ENT: Mouth: Oral mucosa: bleeding, clotting in right lower gingival fold, liquid blood pooled in front of teeth, Voice: is normal. Vital Signs: 09:51 BP 137 / 88; Pulse 78; Resp 16; Temp 98.8; Pulse Ox 94% ; Weight 78.02 kg; Height 5 ft. jh5 9 in. (175.26 cm); Pain 0/10; 10:18 BP 141 / 93; Pulse 100; Resp 14; Pulse Ox 98% on R/A; jd3 13:43 BP 148 / 97; Pulse 108; Resp 17; Pulse Ox 100% on R/A; hb 15:08 BP 159 / 101; Pulse 108; Resp 15; Pulse Ox 100% ; hb 15:35 BP 157 / 98; Pulse 125; Resp 17; Pulse Ox 99% ; hb 17:38 BP 161 / 93; Pulse 143; Resp 20; Pulse Ox 100% on R/A; hb 18:31 BP 142 / 95; Pulse 112; Resp 17; Pulse Ox 99% on R/A; hb 09:51 Body Mass Index 25.40 (78.02 kg, 175.26 cm) jh5 NIH Stroke Scale Scores: 10:04 NIHSS Score: 1 snw Nguyễn Coma Score: 10:04 Eye Response: spontaneous(4). Verbal Response: oriented(5). Motor Response: obeys snw commands(6). Total: 15. MDM: 09:04 Patient medically screened. snw 09:23 Data reviewed: vital signs, nurses notes. Physician consultation: Alphonse Russell MD was snw called at 09:24, was contacted at 09:24, regarding CT stroke negative for new findings, no blood. 11:59 Counseling: I had a detailed discussion with the patient and/or guardian regarding: the snw historical points, exam findings, and any diagnostic results supporting the discharge/admit diagnosis, the presence of at least one elevated blood pressure reading (>120/80) during this emergency department visit, lab results, the need for further work-up and treatment in the hospital. Physician consultation: and will see patient shortly. Special discussion: Based on the history and exam findings, there is no indication for further emergent testing or inpatient evaluation. 04/12 09:05 Order name: Basic Metabolic Panel; Complete Time: 10:56 snw 04/12 09:05 Order name: CBC with Diff; Complete Time: 10:28 snw 12 09:05 Order name: LFT's; Complete Time: 10:56 snw 04/12 09:05 Order name: Magnesium; Complete Time: 10:56 snw 04/12 09:05 Order name: NT PRO-BNP; Complete Time: 10:56 snw 04/12 09:05 Order name: PT-INR; Complete Time: 16:05 snw 04/12 09:05 Order name: Troponin HS; Complete Time: 10:56 snw 1209 14:40 Order name: SARS RAPID eb 04/12 15:49 Order name: SARS-COV-2 Antigen Rapid; Complete Time: 15:52 EDMS 04/12 22:08 Order name: Potassium; Complete Time: 07:48 EDMS 04/12 22:08 Order name: Phosphorus; Complete Time: 07:48 EDMS 04/12 22:08 Order name: Troponin High Sensitivity; Complete Time: 07:48 EDMS 04/12 22:08 Order name: Magnesium; Complete Time: 07:48 EDMS 04/13 00:30 Order name: Troponin High Sensitivity; Complete Time: 07:48 EDMS 04/12 09:05 Order name: XRAY Chest (1 view); Complete Time: 11:13 snw 04/12 09:05 Order name: EKG; Complete Time: 09:06 snw 04/12 09:05 Order name: CT Stroke Brain w/o Contrast snw 04/12 09:09 Order name: Ct Stroke Brain Wo Cont; Complete Time: 09:39 EDMS 04/12 12:48 Order name: CONS Physician Consult EDMS 04/12 21:39 Order name: US; Complete Time: 07:48 EDMS 04/13 02:18 Order name: Potassium; Complete Time: 07:48 EDMS 04/13 05:16 Order name: CBC with Automated Diff; Complete Time: 07:48 EDMS 04/13 05:29 Order name: Phosphorus; Complete Time: 07:48 EDMS 04/13 05:29 Order name: Magnesium; Complete Time: 07:48 EDMS 04/13 05:31 Order name: Basic Metabolic Panel; Complete Time: 07:48 EDMS 04/13 05:35 Order name: Troponin High Sensitivity; Complete Time: 07:48 EDMS 04/12 09:05 Order name: Cardiac monitoring; Complete Time: 09:42 snw 04/12 09:05 Order name: EKG - Nurse/Tech; Complete Time: 10:14 snw 04/12 09:05 Order name: IV Saline Lock; Complete Time: 09:51 snw 04/12 09:05 Order name: Labs collected and sent; Complete Time: 09:44 snw 04/12 09:05 Order name: O2 Per Protocol; Complete Time: 09:42 snw 04/12 09:05 Order name: O2 Sat Monitoring; Complete Time: 09:42 snw 12 09:54 Order name: Labs - recollect needed; Complete Time: 10:14 ss 12 09:56 Order name: Suction; Complete Time: 10:15 snw EC:37 Rate is 104 beats/min. Rhythm is irregularly irregular, A fib. QT interval is snw prolonged. No ST changes noted. Clinical impression: Atrial Fibrillation. Administered Medications: 11:31 Drug: NS 0.9% 1000 ml Route: IV; Rate: 50 ml/hr; Site: left antecubital; [facility] 11:31 Drug: Potassium Chloride 20 mEq Route: IV; Rate: calculated rate; Site: left [facility] antecubital; 13:40 Follow up: Response: No adverse reaction; IV Status: Completed infusion; IV Intake: hb 100ml 13:43 Drug: Potassium Chloride 20 mEq Route: IV; Rate: calculated rate; Site: left hb antecubital; 15:44 Follow up: Response: No adverse reaction; IV Status: Completed infusion; IV Intake: hb 100ml 15:45 Drug: Potassium Chloride 20 mEq Route: IV; Rate: calculated rate; Site: right hb antecubital; 17:45 Follow up: Response: No adverse reaction; IV Status: Completed infusion; IV Intake: hb 100ml Disposition: 04/13 17:33 Co-signature as Attending Physician, William Ryan MD I agree with the assessment and rt plan of care. Disposition Summary: 04/12/22 11:59 Hospitalization Ordered Hospitalization Status: Inpatient Admission snw Provider: Joshua Louis snstanley Condition: Stable snw Problem: an acute exacerbation snw Symptoms: are unchanged snw Bed/Room Type: Standard snw Location: Telemetry/MedSurg (Inpatient)(04/13/22 09:11) eb Room Assignment: 202(04/13/22 09:11) eb Diagnosis - Hypokalemia snw - Bleeding gingival on Xarelto snw - Chronic atrial fibrillation snw Forms: - Medication Reconciliation Form snw - SBAR form snw NIH Stroke Scale - NIH Stroke Score Date: 04/12/2022 Time: 10:04 Total Score = 1 1a. Level of Consciousness (LOC) - 0(Alert) 1b. Level of Consciousness (LOC) (Month \T\ Age) - 0(Both) 1c. LOC Commands (Open \T\ Closes Eyes/Relief Driller) - 0(Both) 2. Best Gaze (Lateral Gaze Paresis) - 0(Normal) 3. Visual Field Loss - 0(No visual loss) 4. Facial Palsy - 0(Normal) 5a. Left Arm: Motor (10-second hold) - 0(No drift) 5b. Right Arm: Motor (10-second hold) - 0(No drift) 6a. Left Leg: Motor (5-second hold - always test supine) - 1(Drift) 6b. Right Leg: Motor (5-second hold - always test supine) - 0(No drift) 7. Limb Ataxia (finger/nose \T\ heel/chappell - test with eyes open) - 0(Absent) 8. Sensory Loss (pinprick arms/legs/face) - 0(Normal) 9. Best Language: Aphasia (description/naming/reading) - 0(No aphasia) 10. Dysarthria (speech clarity - read or repeat words) - 0(Normal) 11. Extinction and Inattention (visual/tactile/auditory/spatial/personal) - 0(No abnormality) Initials: snw Signatures: Dispatcher [employer] EDMS Radha Lawrence, GOLF SHOE SPIKE ASSEMBLER-C GOLF SHOE SPIKE ASSEMBLER-Csnw Laura Salinas RN RN ss Garcia, Cindy, RN RN cg Baxter, Heather, RN RN hb Botello, Elizabeth eb Rees, Jessica RN RN jh5 William Ryan MD MD rt Corrections: (The following items were deleted from the chart) 04/12 19:21 11:59 Telemetry/MedSurg (Inpatient) snw cg 19:21 11:59 snw cg 04/13 09:11 04/12 19:21 [facility] ER HOLD cg eb 04/13 09:11 04/12 19:21 ERHOLD- cg eb
--- NOTE | 2022-04-12 13:07 | P.HP ---
Certification for Inpatient Patient admitted to: Inpatient With expected LOS: >2 Midnights Patient will require the following post-hospital care: [facility] Practitioner: I am a practitioner with admitting privileges, knowledge of patient current condition, hospital course, and medical plan of care. Services: Services provided to patient in accordance with Admission requirements found in Title 42 Section 412.3 of the Code of Federal Regulations Patient History Date of Service: 04/12/22 Reason for admission: gingival bleeding on Xarelto, hypokalemia, afib History of Present Illness: Mr. 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 Per custodial staff, they began suctioning blood from mouth yesterday. At bedside, blood is present around gums, along with a few small blood clots. Patient's only complaint is abdominal pain. He is globally weak, worse on right side than left, which is a deficit from his recent stroke. Patient denies hematemesis, hematochezia, and melena. MARISOL is negative. Patient's lab significant for potassium of 2.3, Tbili 1.8, Dbili 0.8, Troponin 257.9, BNP 4119. CT Head shows no acute intracranial abnormality, subacute infarct noted left parietal lobe without evidence of hemorrhagic conversion. Troponin and BNP are downtrending from patient's recent admission. Patient denies chest pain. EKG shows atrial fibrillation. Rate is currently in the 110s. Patient received potassium replacement in the ED. Allergies No Known Allergies Allergy (Unverified 08/14/21 14:06) Home Medications: Apixaban [Eliquis] 5 mg PO BID 30 Days #60 tablet 08/15/21 Atorvastatin Calcium 20 mg PO BEDTIME 30 Days #30 tablet 08/15/21 Metoprolol Tartrate [Lopressor*] 50 mg PO BID 30 Days #60 tab 08/15/21 lisinopriL [Prinivil*] 20 mg PO DAILY 30 Days #30 tab 08/15/21 Aspirin [Aspirin EC 81 MG] 81 mg PO DAILY #30 tab 04/05/22 Atorvastatin Calcium [Lipitor] 40 mg PO BEDTIME #30 tab 04/05/22 Folic Acid 1 mg PO DAILY #30 tab 04/05/22 - Past Medical/Surgical History Diabetic: No -: HTN -: CVA -: Afib -: Noncompliance -: HLD -: alcohol abuse -: CHF -: NSTEMI Past Surgical History: Unable to obtain Psychosocial/ Personal History: Patient confused, unclear. - Family History Family History: Reviewed- Non-Contributory - Social History Smoking Status: Unknown if ever smoked Alcohol use: Yes CD- Drugs: No Caffeine use: Yes Place of Residence: Jail Review of Systems General: Unremarkable Eyes: Unremarkable ENT: Unremarkable Respiratory: Unremarkable Cardiovascular: Unremarkable Gastrointestinal: Abdominal Pain, Distention Genitourinary: Unremarkable Musculoskeletal: Unremarkable Integumentary: Unremarkable Neurological: Unremarkable Lymphatics: Unremarkable Other: bleeding from gums Physical Examination - Physical Exam General: In no apparent distress, Cooperative HEENT: Atraumatic, Normocephalic, Other (bleeding from gums, clots present ) Neck: Supple, No LAD Respiratory: Clear to auscultation bilaterally, Normal air movement Cardiovascular: Edema, Irregular heart rate/rhythm Gastrointestinal: Normal bowel sounds, No tenderness Musculoskeletal: No clubbing Integumentary: No rashes Neurological: Abnormal strength, Abnormal sensation Lymphatics: No axilla or inguinal lymphadenopathy - Studies Laboratory Data (last 24 hrs) 04/12/22 10:11: WBC 6.10, Hgb 14.2, Hct 43.1, Plt Count 230 04/12/22 10:11: Sodium 136, Potassium 2.3 L*, BUN 28 H, Creatinine 1.27, Glucose 76, Magnesium 1.9, Total Bilirubin 1.8 H, AST 78 H, ALT 21, Alkaline Phosphatase 71 Assessment and Plan - Plan Assessment Gingival bleeding on eliquis Hypokalemia Atrial fibrillation Subacute CVA Congestive Heart Failure Hypertension Hyperlipidemia Elevated troponin in the setting of recent NSTEMI History of alcohol abuse Plan Gingival bleeding on eliquis - hold eliquis and ASA, awaiting cardiology recs - MARISOL negative, no hemorrhage on CT head, no other source of bleeding Hypokalemia - IV potassium replacement and close potassium monitoring - potassium chloride supplement on discharge Atrial fibrillation - on telemetry - resume home metoprolol, IV metoprolol prn - cardiology consulted Subacute CVA - CT Head shows subacute CVA from last admission and no hemorrhagic conversion - hold aspirin overnight - continue statin and folic acid - resume physical therapy while admitted to hospital Congestive Heart Failure - ECHO on last admission shows EF 20-25% - patient not on home diuretic, will discus with cardiology - hold lasix overnight given hypokalemia, patient with 2+ lower leg edema Hypertension - resume home metoprolol and lisinopril Hyperlipidemia - resume home statin Elevated troponin in the setting of recent NSTEMI - troponin downtrending from last admission - patient denies chest pain, was seen by cardiology on last admission and ACS ruled out with plan for cath or lexiscan as outpatinet - trend troponin, repeat EKGs, on telemetry - cardiology consulted - medications as above History of alcohol abuse - patient with mildly elevated bilirubin and AST, reporting abdominal pain - coags pending - will obtain abdominal US to assess liver function DVT ppx: SCDs overnight Full Code Discharge Plan: Jail Plan to discharge in: 48 Hours - Advance Directives Does patient have a Living Will: No Does patient have a Durable POA for Healthcare: No - Code Status/Comfort Care Code Status Assessed: Yes (full code ) Critical Care: No Time Spent Managing Pts Care (In Minutes): 70
[2022-04-12] MEDS ORDERED: KCL 20 MEQ/100 mL IVPB 200 ML IV ONE (13:37)
[2022-04-12 15:49] LABS: SARS-CoV-2 Antigen Rapid Res Negative (Negative)
[2022-04-12 16:04] LABS: Protime INR 2.27
[2022-04-12] MEDS ORDERED: AMIODARONE HCL 900 MG in Dextrose 5%-Water 482 ML IV SCH (18:26)
[2022-04-12] MEDS ORDERED: AMIODARONE HCL 150 MG in D5W 100 ML IV STA (18:30)
[2022-04-12] MEDS ORDERED: ONDANSETRON 4 MG/2 ML VIAL IV PRN (19:47)
[2022-04-12] MEDS ORDERED: ACETAMINOPHEN 500 MG TAB PO PRN (19:47)
[2022-04-12] MEDS ORDERED: METOPROLOL TARTRATE 5 MG/5 ML INJ IV PRN (19:47)
--- NOTE | 2022-04-12 19:57 | CON ---
Date of Consultation: 04/12/2022 Reason For Consultation: Atrial fibrillation. History Of Present Illness: This is a 71-year-old male with history of CVA; chronic atrial fibrillat ion, on Eliquis; congestive heart failure with ejection fraction in the mid 30s; history of hyperlipi demia; coronary artery disease status post non STEMI who presented to the emergency room with gingiva l bleeding. Mouth is full of blood and it was spontaneous and when arrived in the emergency room, hi s heart rate has been running in the 110 and 120 ranges. He does not have any chest pain. Past Medical History: As outlined above in the HPI. Medications: Refer to reconciliation sheet for detailed list. Allergies: NO KNOWN DRUG ALLERGIES. Family History: No premature coronary artery disease or cancer. Social History: Does not smoke or drink. Does not use any drugs. Review of Systems: All systems reviewed and they are negative except for what is mentioned in HPI. Physical Examination: Vital Signs: Reviewed. Head and Neck: Pupils are equal and reactive to light. Intact eye movements. No JVD. No cervical lymphadenopathy. Neck: Supple. Thyroid is not enlarged. Lungs: Clear to auscultation bilaterally. No rhonchi, wheezing, or crackles. No accessory muscle u se or muscle retraction. Heart: Irregularly irregular. No extra sounds. Abdomen: Soft, nontender. Bowel sounds positive. No organomegaly. No masses or hernia. No rigidi ty or rebound. Extremities: No clubbing or cyanosis. Intact pulses. Skin: No rashes. Neurologic: Alert, awake, and oriented x3. No acute focal deficits appreciated. Investigations: Troponin 257. NT-proBNP is 4119. BUN is 28, creatinine 1.7, and potassium is 2.3. Assessment And Recommendation: 1.Atrial fibrillation. His rate is high. Recommend to load him with amiodarone drip 150 mg over 10 minutes then 1 mg/minute for 6 hours, and then 0.5 mg/minute for 16 hours. Keep him off Eliquis due to significant bleeding and plan for left atrial appendage closure using Watchman device as an outpa tient. 2.Elevated troponin. There is no chest pain. Please trend troponin, 2 more sets at least and then we will plan on doing ischemia evaluation on him in the near future. 3.Gingival bleed. It is massive, likely due to anticoagulant. Stop anticoagulant for now and plan for left atrial appendage closure with Watchman procedure. SR/MODL Voice ID: [id number] Report ID: [id number]
[2022-04-12] MEDS: ATORVASTATIN 40 MG TAB PO SCH (21:00)
--- NOTE | 2022-04-12 21:38 | RAD REPORT ---
EXAM DESCRIPTION: US - Liver Only - 04/12/2022 9:20 pm CLINICAL HISTORY: abdominal pain, liver evaluation COMPARISON: Chest Single View dated 04/12/2022 TECHNIQUE: Sonographic evaluation of the right upper quadrant was performed as a dedicated liver ult rasound study. FINDINGS: Slight liver capsule nodularity noted. Coarsened increased echogenicity seen typical for f atty infiltration or diffuse hepatic parenchymal disease. A focal lesion is not identified. Doppler e valuation shows no portal vein abnormality. Liver is 15 cm in maximum dimension. Spleen is 7 cm. No f ocal splenic abnormality. Small amount of ascites noted. IMPRESSION: Fatty infiltration or diffuse hepatic parenchymal disease findings of a normal size live r. No focal liver lesion.
[2022-04-12 21:42] LABS: Magnesium 1.7 mg/dL (1.6-2.4); Phosphorus 1.9 mg/dL (2.5-4.9)
[2022-04-12] MEDS: KCL 20 MEQ/100 mL IVPB 20 MEQ/100 ML BAG IV SCH ×2 (21:47→22:30)
[2022-04-12 22:08] LABS: Potassium 2.6 mmol/L (3.5-5.1); Troponin High Sensitivity 294.6 pg/mL (<58.9)
[2022-04-12] MEDS ORDERED: POTASSIUM 25 MEQ EFFERV TAB PO ONE (22:32)
[2022-04-12] MEDS ORDERED: METOPROLOL TAR 50 MG TAB ONE (22:41)
[2022-04-12] MEDS ORDERED: ATORVASTATIN 20 MG TAB ONE (22:41)
[2022-04-12] MEDS ORDERED: POTASSIUM 25 MEQ EFFERV TAB ONE (22:41)
[2022-04-12] MEDS: METOPROLOL TAR 50 MG TAB PO SCH (22:45)
[2022-04-12] MEDS ORDERED: KCL 20 MEQ/100 mL IVPB 20 MEQ/100 ML BAG IV SCH (23:00)
[2022-04-13] MEDS ORDERED: MAGNESIUM SULFATE 1 gm IVPB 1 GM/100 ML BAG IV ONE ×2 (01:12→01:17)
[2022-04-13] MEDS ORDERED: POTASSIUM 25 MEQ EFFERV TAB PO ONE (02:42)
[2022-04-13] MEDS ORDERED: POTASSIUM 25 MEQ EFFERV TAB ONE (02:49)
[2022-04-13] MEDS ORDERED: KCL 20 MEQ/100 mL IVPB 100 ML IV ONE (02:49)
[2022-04-13] MEDS ORDERED: KCL 20 MEQ/100 mL IVPB 20 MEQ/100 ML BAG IV SCH (03:00)
[2022-04-13 05:14] LABS: Hematocrit 38.4 % (39.6-49.0); Lymphocytes % 17.8 % (15.3-44.8); MCV 87.9 fL (80-100); RBC Red Blood Cell Count 4.37 M/uL (4.33-5.43)
[2022-04-13 05:29] LABS: Magnesium 2.1 mg/dL (1.6-2.4)
[2022-04-13 05:30] LABS: Potassium 3.9 mmol/L (3.5-5.1)
[2022-04-13] MEDS ORDERED: POTASS/SODIUM PHOSPHATE 1 PKT POWD.PACK PO SCH (06:00)
[2022-04-13] MEDS ORDERED: POTASS/SODIUM PHOSPHATE 1 PKT POWD.PACK ONE (06:11)
[2022-04-13] MEDS: POTASS/SODIUM PHOSPHATE 1 PKT POWD.PACK PO SCH ×3 (06:24→09:00)
[2022-04-13] MEDS ORDERED: METOPROLOL TAR 50 MG TAB ONE (08:31)
[2022-04-13] MEDS: lisinopriL 20 MG TAB PO SCH (08:31)
[2022-04-13] MEDS: FOLIC ACID 1 MG TABLET PO SCH (08:31)
[2022-04-13] MEDS: METOPROLOL TAR 50 MG TAB PO SCH ×2 (08:31→20:17)
[2022-04-13] MEDS ORDERED: FOLIC ACID 1 MG TABLET ONE (08:32)
[2022-04-13] MEDS ORDERED: lisinopriL 20 MG TAB ONE (08:32)
[2022-04-13 13:33] VITALS: BMI 23.0
--- NOTE | 2022-04-13 19:53 | P.PN ---
Date of Service: 04/13/22 Subjective: bleeding improved denies any pain, no nausea/vomiting, feels "fine" no chest pain, no palpitations ROS: A complete review of systems was performed and is negative except as mentioned above Physical Exam: Gen: NAD, AO HEENT: normal conjunctiva, sclera anicteric CV: irregularly irregular rhythm, no edema Pulm: non-labored respirations, clear bilaterally Abd: soft, non-tender, non-distended Neuro: normal speech, normal affect, moves all extremities - weakness on right vitals reviewed Problem List Gingival bleeding on eliquis Hypokalemia Atrial fibrillation Subacute CVA Congestive Heart Failure Hypertension Hyperlipidemia Elevated troponin in the setting of recent NSTEMI History of alcohol abuse Gingival bleeding on eliquis - hold eliquis and ASA - MARISOL negative, no hemorrhage on CT head, no other source of bleeding - cardiology consulted Hypokalemia unclear etiology, replacement protocol ordered Atrial fibrillation - on telemetry - amio drip initiated, transition to PO once appropriate - cardiology consulted Subacute CVA - CT Head shows subacute CVA from last admission and no hemorrhagic conversion - hold aspirin/eliquis due to gingival bleed - continue statin and folic acid - resume physical therapy Congestive Heart Failurel, systolic - ECHO on last admission shows EF 20-25% - patient not on home diuretic, will discus with cardiology - euvolemic appearing, restart lasix PRN Hypertension - resumed home metoprolol and lisinopril Hyperlipidemia - resumed home statin Elevated troponin in the setting of recent NSTEMI - troponin downtrending from last admission - patient denies chest pain, was seen by cardiology on last admission and ACS ruled out with plan for cath or lexiscan as outpatinet - trend troponin, repeat EKGs, on telemetry - cardiology consulted - medications as above History of alcohol abuse - patient with mildly elevated bilirubin and AST, reporting abdominal pain - coags pending - will obtain abdominal US to assess liver function VTE: held, INR > 2 Code: full Dispo: SNF, 2-3 days family updated at bedside Time Spent Managing Pts Care (In Minutes): 35
[2022-04-13] MEDS ORDERED: AMIODARONE IN DEXTROSE,ISO-OSM 360 MG/200 ML BAG IV ONE (20:06)
[2022-04-13] MEDS: ATORVASTATIN 40 MG TAB PO SCH (20:16)
[2022-04-13] MEDS: AMIODARONE HCL 200 MG TAB PO SCH (21:25)
--- NOTE | 2022-04-13 22:29 | PN ---
Date of Progress Note: 04/13/2022 Subjective: Seen by bedside. Bleeding has improved. Review of Systems: No chest pain, shortness of breath, orthopnea, or cough. No nausea, vomiting, or diarrhea. No abdom inal pain. No dysuria, polyuria, or urinary urgency. All other systems reviewed and they were negat reid. Physical Examination: Vital Signs: Reviewed. Head and Neck: Pupils are equal and reactive to light. Intact eye movements. No JVD. No cervical lymphadenopathy. Neck is supple. Thyroid is not enlarged. Lungs: Clear to auscultation bilaterally. No rhonchi, wheezing, or crackles. No accessory muscle u se. Heart: Irregularly irregular. No extra sounds. Abdomen: Soft, nontender. Bowel sounds positive. No organomegaly. No masses or hernia. No rigidi ty or rebound. Extremities: No edema, clubbing, or cyanosis. Intact pulses. Skin: No rash. Neurologic: Alert, awake, and oriented x3. No acute focal deficits appreciated. Investigations: Hemoglobin 12.7 and troponin is 332. No chest pain. Assessment/recommendation: 1.Atrial fibrillation with aggressive gingival bleed. Keep Eliquis on hold. Bleeding has improved and hemoglobin has been stable. The patient is not a candidate for anticoagulants and for stroke pro tection will need left atrial appendage closure, which will be arranged for as an outpatient. 2.Elevated troponin, likely due to demand ischemia. We will monitor and obtain echocardiogram on Friday. 3.Dyslipidemia. Continue statin. SR/MODL Voice ID: [id number] Report ID: [id number]
--- NOTE | 2022-04-14 06:11 | P.PN ---
Date of Service: 04/14/22 Subjective: no acute events overnight bleeding has slowed down, but not completely stopped in afib, rate controlled in 80s mostly no new complaints/problems ROS: A complete review of systems was performed and is negative except as mentioned above Physical Exam: Gen: NAD, AOx2 HEENT: normal conjunctiva, sclera anicteric, dry blood on inner lower lip CV: irregularly irregular rhythm, no edema Pulm: non-labored respirations, clear bilaterally Abd: soft, non-tender, non-distended Neuro: moves all extremities - weakness on right, EOMI vitals reviewed Problem List Gingival bleeding on eliquis Hypokalemia Elevated troponin in the setting of recent NSTEMI Atrial fibrillation, chronic Subacute CVA Congestive Heart Failure; systolic Hypertension Hyperlipidemia History of alcohol abuse Gingival bleeding on eliquis Atrial fibrillation , chronic - held eliquis and ASA on admission - MARISOL negative, no hemorrhage on CT head, no other source of bleeding - cardiology consulted - resume aspirin 81mg 04/14 - not candidate for anticoagulation, cardiology recommends continue aspirin, plan for watchman's procedure as outpatient - amio drip transitioned to PO in evening of 04/13 Elevated troponin in the setting of recent NSTEMI - troponin downtrending from last admission, but slight increase overnight - patient denies chest pain, was seen by cardiology on last admission and ACS ruled out with plan for cath or lexiscan as outpatient - telemetry - cardiology consulted - recommend echo tomorrow Hypokalemia unclear etiology, replacement protocol ordered Subacute CVA - same as prior admission, R sided weakness. continue statin and folic acid, aspirin / PT Congestive Heart Failure, systolic - ECHO on last admission: EF 20-25% - patient not on home diuretic, will discus with cardiology - euvolemic appearing, restart lasix if needed Hypertension - resumed home metoprolol and lisinopril Hyperlipidemia - resumed home statin History of alcohol abuse -chronically elevated LFTs / bili -Abd U/S: no acute process VTE: held, in setting of bleed Code: full Dispo: SNF, ~1-2 days Time Spent Managing Pts Care (In Minutes): 25
[2022-04-14 06:37] LABS: Hematocrit 37.6 % (39.6-49.0); MCV 87.6 fL (80-100); MPV 8.7 fL (7.6-11.3); RBC Red Blood Cell Count 4.29 M/uL (4.33-5.43)
[2022-04-14 06:39] LABS: Protime INR 1.66
[2022-04-14 06:56] LABS: Albumin 2.3 g/dL (3.4-5.0); Bilirubin Direct 0.8 mg/dL (0-0.2); Bilirubin Total 1.5 mg/dL (0.2-1.0); Magnesium 1.9 mg/dL (1.6-2.4); Phosphorus 1.7 mg/dL (2.5-4.9); Protein, Total 5.6 g/dL (6.4-8.2)
[2022-04-14 07:08] LABS: Potassium 2.5 mmol/L (3.5-5.1)
[2022-04-14] MEDS ORDERED: NA CHLORIDE 0.9% 250 ML ONE ×3 (08:59→19:14)
[2022-04-14] MEDS: METOPROLOL TAR 50 MG TAB PO SCH ×2 (09:09→20:35)
[2022-04-14] MEDS: FOLIC ACID 1 MG TABLET PO SCH (09:09)
[2022-04-14] MEDS: lisinopriL 20 MG TAB PO SCH (09:09)
[2022-04-14] MEDS: KCL 20 MEQ/100 mL IVPB 20 MEQ/100 ML BAG IV SCH ×3 (09:09→14:45)
[2022-04-14] MEDS: AMIODARONE HCL 200 MG TAB PO SCH ×2 (09:09→20:31)
[2022-04-14] MEDS: ASPIRIN EC 81 MG TAB PO SCH (14:45)
--- NOTE | 2022-04-14 15:46 | PN ---
Date of Progress Note: 04/14/2022 Subjective: Seen by bedside. Heart rate is controlled, but still in AFib and the gingival bleeding is improved. Review of Systems: No chest pain or shortness of breath, orthopnea, cough. No nausea, vomiting, diarrhea. No abdominal pain. No dysuria, polyuria, or urinary urgency. No skin rash, headache. All other systems reviewe d and are negative. Physical Examination: Vital Signs: Reviewed. Head and Neck: Pupils are equal, reactive to light. Intact eye movements. No JVD. No cervical lym phadenopathy. Neck is supple. Thyroid is not enlarged. Lungs: Clear to auscultation bilaterally. No rhonchi, wheezing, or crackles. No accessory muscle u se. Heart: Irregularly irregular. No extra sounds. Abdomen: Soft, nontender. Bowel sounds positive. No organomegaly. No masses or hernia. No rigidi ty or rebound. Extremities: No clubbing or cyanosis. Intact pulses. Skin: No rash. Neurologic: Alert, awake, oriented x3. No acute focal deficits appreciated. Investigations: Troponin 365. BUN is 15, creatinine 1.03, and potassium is 2.5. Assessment And Recommendations: 1.Atrial fibrillation, rate now is controlled. Switch to amiodarone 200 mg twice a day and metoprol ol 50 mg twice a day and start baby aspirin 81 mg daily. The patient is not a candidate for anticoag ulation. No plan for left atrial appendage closure as an outpatient. 2.Elevated troponin. There is no chest pain. Obtain an echo and further evaluate for need for lizeth nary angiogram accordingly. /YUMIKOL Voice ID: [id number] Report ID: [id number]
[2022-04-14] MEDS: ATORVASTATIN 40 MG TAB PO SCH (20:32)
[2022-04-14] MEDS ORDERED: POTASSIUM 25 MEQ EFFERV TAB PO ONE (22:43)
[2022-04-14] MEDS: POTASS/SODIUM PHOSPHATE 1 PKT POWD.PACK PO SCH ×2 (22:50→23:48)
[2022-04-14] MEDS ORDERED: KCL 20 MEQ/100 mL IVPB 20 MEQ/100 ML BAG IV SCH (23:00)
[2022-04-15 03:39] LABS: Hematocrit 37.8 % (39.6-49.0); MCV 87.7 fL (80-100); MPV 9.1 fL (7.6-11.3); RBC Red Blood Cell Count 4.31 M/uL (4.33-5.43)
[2022-04-15 04:16] LABS: Albumin 2.3 g/dL (3.4-5.0); Bilirubin Total 1.3 mg/dL (0.2-1.0); Magnesium 1.8 mg/dL (1.6-2.4); Phosphorus 1.8 mg/dL (2.5-4.9); Potassium 3.3 mmol/L (3.5-5.1); Protein, Total 5.7 g/dL (6.4-8.2)
[2022-04-15] MEDS ORDERED: POTASSIUM CL SA 10 MEQ TAB PO ONE (04:35)
[2022-04-15] MEDS ORDERED: MAGNESIUM SULFATE 1 gm IVPB 1 GM/100 ML BAG IV ONE (04:36)
[2022-04-15] MEDS: POTASS/SODIUM PHOSPHATE 1 PKT POWD.PACK PO SCH ×4 (06:29→09:00)
--- NOTE | 2022-04-15 06:43 | P.PN ---
Date of Service: 04/15/22 Subjective: reports slight bleed otherwise feeling better no new / worsening symptoms no nausea/vomiting, no bleed anywhere else ROS: A complete review of systems was performed and is negative except as mentioned above Physical Exam: Gen: NAD, alert, oriented HEENT: normal conjunctiva, sclera anicteric, dry blood on inner R lower lip CV: irregularly irregular rhythm, no edema Pulm: non-labored respirations, clear bilaterally Abd: soft, non-tender, non-distended Neuro: moves all extremities - weakness on right, EOMI vitals reviewed Problem List Gingival bleeding on eliquis Hypokalemia Elevated troponin in the setting of recent NSTEMI Atrial fibrillation, chronic Subacute CVA Congestive Heart Failure; systolic Hypertension Hyperlipidemia History of alcohol abuse Gingival bleeding on eliquis Atrial fibrillation , chronic - held eliquis and ASA on admission - MARISOL negative, no hemorrhage on CT head, no other source of bleeding - cardiology consulted - resume aspirin 81mg 04/14 - not candidate for anticoagulation, cardiology recommends continue aspirin, plan for watchman's procedure as outpatient - amio drip transitioned to PO in evening of 04/13 Elevated troponin in the setting of recent NSTEMI - troponin downtrending from last admission, but slight increase overnight - patient denies chest pain, was seen by cardiology on last admission and ACS ruled out with plan for cath or lexiscan as outpatient - telemetry - cardiology consulted - echo today Hypokalemia hypophosphatemia unclear etiology, replacement protocol ordered seems to be chronic continue replacement Subacute CVA - same as prior admission, R sided weakness. continue statin and folic acid, aspirin / PT Congestive Heart Failure, systolic - ECHO on last admission: EF 20-25% - patient not on home diuretic, will discus with cardiology for further recs - euvolemic appearing, restart lasix if needed Hypertension - resumed home metoprolol and lisinopril Hyperlipidemia - resumed home statin History of alcohol abuse -chronically elevated LFTs / bili -Abd U/S: no acute process VTE: held, in setting of bleed Code: full Dispo: home vs snf pt reportedly wants home with home health per SW/CM, need to discuss further wit h family Time Spent Managing Pts Care (In Minutes): 25
[2022-04-15] MEDS: AMIODARONE HCL 200 MG TAB PO SCH ×2 (08:54→20:32)
[2022-04-15] MEDS: METOPROLOL TAR 50 MG TAB PO SCH ×2 (08:54→20:33)
[2022-04-15] MEDS: FOLIC ACID 1 MG TABLET PO SCH (08:54)
[2022-04-15] MEDS: ASPIRIN EC 81 MG TAB PO SCH (08:54)
[2022-04-15] MEDS ORDERED: lisinopriL 20 MG TAB PO SCH (09:00)
--- NOTE | 2022-04-15 15:07 | EKG ---
Test Date: 2022-04-12 Test Time: 10:08:49 [employer] Teacher: PEPITO MEASUREMENT RESULTS: Intervals: Rate: 104 CA: QRSD: 100 QT: 368 QTc: 483 [place]: P: CA: QRS: 33 T: 239 INTERPRETIVE STATEMENTS: Atrial fibrillation with rapid ventricular response with premature ventricular or aberrantly conducted complexes Cannot rule out Inferior infarct, age undetermined ST & T wave abnormality, consider lateral ischemia Abnormal ECG Compared to ECG 04/02/2022 18:30:40 Myocardial infarct finding now present ST (T wave) deviation still present Possible ischemia still present Electronically Signed On 04-15-22 14:59:07 PHLEBOTOMY TECHNOLOGIST by George Castro
[2022-04-15 19:40] LABS: Potassium 3.7 mmol/L (3.5-5.1)
[2022-04-15] MEDS: ATORVASTATIN 40 MG TAB PO SCH (20:32)
[2022-04-16 04:25] LABS: Hematocrit 38.6 % (39.6-49.0); MCV 88.1 fL (80-100); MPV 8.8 fL (7.6-11.3); RBC Red Blood Cell Count 4.38 M/uL (4.33-5.43)
[2022-04-16 04:46] LABS: Albumin 2.4 g/dL (3.4-5.0); Bilirubin Total 0.9 mg/dL (0.2-1.0); Phosphorus 1.9 mg/dL (2.5-4.9); Potassium 3.3 mmol/L (3.5-5.1)
[2022-04-16] MEDS: POTASS/SODIUM PHOSPHATE 1 PKT POWD.PACK PO SCH ×5 (07:00→13:07)
[2022-04-16] MEDS ORDERED: POTASSIUM CL SA 10 MEQ TAB PO ONE (09:00)
[2022-04-16] MEDS: ASPIRIN EC 81 MG TAB PO SCH (09:56)
[2022-04-16] MEDS: FOLIC ACID 1 MG TABLET PO SCH (09:56)
[2022-04-16] MEDS: METOPROLOL TAR 50 MG TAB PO SCH ×2 (09:57→21:25)
[2022-04-16] MEDS: AMIODARONE HCL 200 MG TAB PO SCH ×2 (09:57→21:25)
[2022-04-16 11:12] VITALS: O2SAT 96
--- NOTE | 2022-04-16 14:33 | P.PN ---
Subjective Date of Service: 04/16/22 Chief Complaint: gingival bleeding on Xarelto, hypokalemia, afib Patient is awake and interactive. He is confused. He is tolerating his diet. No issues overnight, no agitation. Physical Examination - Vital Signs Temperature: 97.3 F Blood Pressure: 104/85 Pulse: 50 Respirations: 16 Pulse Ox (%): 97 Assessment And Plan - Plan Physical Exam: Gen: NAD, confused HEENT: No gingiva bleeding noted today CV: irregularly irregular rhythm, no edema Pulm: clear bilaterally Abd: soft, non-tender, non-distended Neuro: moves all extremities - weakness on right. vitals reviewed Problem List Gingival bleeding on eliquis Hypokalemia Elevated troponin in the setting of recent NSTEMI Atrial fibrillation, chronic Subacute CVA Congestive Heart Failure; systolic Hypertension Hyperlipidemia History of alcohol abuse Gingival bleeding on eliquis Atrial fibrillation , chronic - held eliquis and ASA on admission - MARISOL negative, no hemorrhage on CT head, no other source of bleeding - cardiology consulted -Dr. Castro recommend aspirin, no anticoagulation. - no plans for watchman's procedure per Dr. Castro. - amio drip transitioned to PO in evening of 04/13 Elevated troponin in the setting of recent NSTEMI - troponin overall trended flat, no acute rise to suggest ACS - patient denies chest pain, was seen by cardiology on last admission and ACS ruled out with plan for cath or lexiscan as outpatient -Cardiology recommend echocardiogram and further work-up pending echo result. Hypokalemia hypophosphatemia unclear etiology, replacement protocol ordered seems to be chronic continue replacement Subacute CVA - same as prior admission, R sided weakness and cognitive deficit. Continue statin and folic acid, aspirin / PT Congestive Heart Failure, systolic - ECHO on last admission: EF 20-25% -Appears compensated for CHF. Hypertension -continue home metoprolol and lisinopril Hyperlipidemia -continue home statin History of alcohol abuse -chronically elevated LFTs / bili -Abd U/S: no acute process. VTE: held, in setting of bleed Code: full Dispo: SNF. May transition to long-term care. Discussed plan of care with family. Time Spent Managing Pts Care (In Minutes): 37
--- NOTE | 2022-04-16 20:06 | PN ---
Date of Progress Note: 04/15/2022 Subjective: Seen by bedside, doing well. No further bleeding. Review of Systems: No chest pain, shortness of breath, orthopnea, or cough. No nausea, vomiting, or diarrhea. All othe r systems reviewed and are negative. Physical Examination: Vital Signs: Reviewed. Head and Neck: Pupils are equal, reactive to light. Intact eye movements. No JVD. No cervical lym phadenopathy. Neck is supple. Thyroid is not enlarged. Lungs: Clear to auscultation bilaterally. No rhonchi, rales, or crackles. No accessory muscle use. Heart: Irregularly irregular. No extra sounds. Abdomen: Soft, nontender. Bowel sounds positive. No organomegaly. No masses or hernia. No rigidi ty or rebound. Extremities: No clubbing or cyanosis. Intact pulses. Skin: No rashes. Neurological: Alert, awake, oriented x3. No acute focal deficits appreciated. Lymph Nodes: No cervical or axillary lymphadenopathy. Investigations: Labs were reviewed. Assessment And Recommendations: 1.Atrial fibrillation with recent aggressive gingival bleed due to anticoagulation. He is not a goo d candidate for anticoagulation. We will start him on aspirin 81 mg and we will plan for left atrial appendage closure with Watchman and to be done as an outpatient. 2.Elevated troponins, likely due to demand ischemia. There is no chest pain. We will plan for outp atient stress test. /RICA Voice ID: [id number] Report ID: [id number]
--- NOTE | 2022-04-16 20:12 | PN ---
Date of Progress Note: 04/16/2022 Subjective: Was seen by bedside. No new complaints. Review of Systems: No chest pain, shortness of breath, orthopnea, cough. No nausea, vomiting, diarrhea. All other syst ems reviewed, and are negative. Physical Examination: Vital Signs: Reviewed. Head and Neck: Pupils are equal, reactive to light. Intact eye movements. No JVD. No cervical lym phadenopathy. Neck: Supple. Thyroid is not enlarged. Lungs: Clear to auscultation bilaterally. No rhonchi, rales, or crackles. No accessory muscle use. HEART: Irregularly irregular. No extra sounds. Abdomen: Soft, nontender. Bowel sounds positive. No organomegaly. No masses or hernia. No rigidi ty or rebound. Extremities: No clubbing, cyanosis. Intact pulses. Skin: No rash. Neurologic: Alert, awake, oriented x3. No focal deficits appreciated. Investigations: Labs reviewed. Assessment/recommendation: 1.Atrial fibrillation. His rate is low. Decrease amiodarone to 200 mg daily and continue metoprolo l and continue baby aspirin and plan for outpatient left atrial appendage closure. 2.Dyslipidemia. Continue statin. 3.Hypertension. Blood pressure is controlled. SR/MODL Voice ID: [id number] Report ID: [id number]
[2022-04-16] MEDS: ATORVASTATIN 40 MG TAB PO SCH (21:25)
[2022-04-17 06:13] LABS: Phosphorus 2.3 mg/dL (2.5-4.9); Potassium 3.7 mmol/L (3.5-5.1)
[2022-04-17] MEDS: POTASS/SODIUM PHOSPHATE 1 PKT POWD.PACK PO SCH ×3 (07:46→10:50)
[2022-04-17] MEDS ORDERED: POTASSIUM 25 MEQ EFFERV TAB PO ONE (09:00)
[2022-04-17] MEDS: AMIODARONE HCL 200 MG TAB PO SCH (09:53)
[2022-04-17] MEDS: ASPIRIN EC 81 MG TAB PO SCH (09:53)
[2022-04-17] MEDS: FOLIC ACID 1 MG TABLET PO SCH (09:53)
[2022-04-17] MEDS: METOPROLOL TAR 50 MG TAB PO SCH (09:53)
[2022-04-17 13:15] VITALS: BP 119/97; TEMP 97.4
--- NOTE | 2022-04-17 14:09 | P.DS ---
Admission Date: 04/12/22 Discharge Date: 04/17/22 Disposition: TRANSFER TO RESIDENTIAL Discharge Condition: FAIR Reason for Admission: gingival bleeding on Xarelto, hypokalemia, afib Brief History of Present Illness: Mr. Rios is a 71 yo M with PMH of CVA on 04/02, chronic atrial fibrillation on eliquis, CHF (EF 20-25%), hypertension, hyperlipidemia, and history of NSTEMI on 04/02 who was discharged to [facility] on 04/05 returns to the ED today for one day of gingival bleeding. Per fdc staff, they began suctioning blood from mouth yesterday. At bedside, blood was present around gums, along with a few small blood clots. Patient's only complaint was abdominal pain. Noted to be globally weak, worse on right side than left, which is a deficit from his recent stroke. Patient denied hematemesis, hematochezia, and melena. MARISOL was negative for occult blood. Patient's lab significant for potassium of 2.3, Tbili 1.8, Dbili 0.8, Troponin 257.9, BNP 4119. CT Head shows no acute intracranial abnormality, subacute infarct noted left parietal lobe without evidence of hemorrhagic conversion. Troponin and BNP are downtrending from patient's recent admission. Patient denied chest pain. EKG showed atrial fibrillation. Patient received potassium replacement and admitted for further management. Hospital Course: Diagnosis Gingival bleeding on eliquis Hypokalemia Elevated troponin in the setting of recent NSTEMI Atrial fibrillation, chronic Subacute CVA Congestive Heart Failure; systolic Hypertension Hyperlipidemia History of alcohol abuse Gingival bleeding on eliquis Atrial fibrillation , chronic - held eliquis and ASA on admission - MARISOL negative, no hemorrhage on CT head, no other source of bleeding -Bleeding stopped. - cardiology consulted -Dr. Castro recommended aspirin, no anticoagulation. -He also recommend watchman's procedure and stress test as an outpatient -Patient was on amiodarone drip for atrial fibrillation, later transitioned to oral amiodarone. Amiodarone dose reduced to 200 mg daily per cardiology due to bradycardia Elevated troponin in the setting of recent NSTEMI - troponin overall trended flat, no acute rise to suggest ACS - patient denied chest pain, was seen by cardiology on last admission and ACS ruled out with plan for cath or lexiscan as outpatient Hypokalemia hypophosphatemia seems to be chronic Patient given electrolyte replacements. Subacute CVA - same as prior admission, R sided weakness and cognitive deficit. Continued statin and folic acid, aspirin / PT Congestive Heart Failure, systolic - ECHO on last admission: EF 20-25% -Appears compensated for CHF. Hypertension -continued home metoprolol. Lisinopril held due to borderline low blood pressure. Hyperlipidemia -continue home statin History of alcohol abuse -chronically elevated LFTs / bili -Abd U/S: no acute process. Vitals are stable for discharge. Patient is discharged to SNF to continue skilled rehab. Vital Signs/Physical Exam: Temp Pulse Resp BP Pulse Ox 97.4 F 102 H 16 119/97 H 97 04/17/22 12:00 04/17/22 12:00 04/17/22 12:00 04/17/22 12:00 04/17/22 12:00 General: Confused, Other (Awake) Neck: JVD not distended Respiratory: Clear to auscultation bilaterally, Normal air movement Cardiovascular: Normal S1 S2, Irregular heart rate/rhythm Gastrointestinal: Soft and benign, Non-distended Integumentary: No rashes Neurological: Other (Cognitive deficit) Laboratory Data at Discharge: WBC 5.40 K/uL (4.3-10.9) 04/16/22 03:58 Hgb 12.8 g/dL (13.6-17.9) L 04/16/22 03:58 Hct 38.6 % (39.6-49.0) L 04/16/22 03:58 Plt Count 223 K/uL (152-406) 04/16/22 03:58 PT 18.3 SECONDS (9.5-12.5) H 04/14/22 06:22 INR 1.66 04/14/22 06:22 Sodium 139 mmol/L (136-145) 04/17/22 05:18 Potassium 3.7 mmol/L (3.5-5.1) 04/17/22 05:18 BUN 12 mg/dL (7-18) 04/17/22 05:18 Creatinine 1.19 mg/dL (0.70-1.30) 04/17/22 05:18 Glucose 87 mg/dL (74-106) 04/17/22 05:18 Phosphorus 2.3 mg/dL (2.5-4.9) L 04/17/22 05:18 Magnesium 2.0 mg/dL (1.6-2.4) 04/16/22 16:18 Total Bilirubin 0.9 mg/dL (0.2-1.0) 04/16/22 03:58 AST 58 U/L (15-37) H 04/16/22 03:58 ALT 19 U/L (16-61) 04/16/22 03:58 Alkaline Phosphatase 85 U/L (45-117) D 04/16/22 03:58 Home Medications: Atorvastatin Calcium 20 mg PO BEDTIME 30 Days #30 tablet 08/15/21 Metoprolol Tartrate [Lopressor*] 50 mg PO BID 30 Days #60 tab 08/15/21 Aspirin [Aspirin EC 81 MG] 81 mg PO DAILY #30 tab 04/05/22 Atorvastatin Calcium [Lipitor] 40 mg PO BEDTIME #30 tab 04/05/22 Folic Acid 1 mg PO DAILY #30 tab 04/05/22 Amiodarone HCl [Cordarone*] 200 mg PO DAILY #30 tab 04/17/22 New Medications: Amiodarone HCl [Cordarone*] 200 mg PO DAILY #30 tab Diet: AHA Activity: Fall precautions Followup: George Castro MD [ACTIVE - CAN ADMIT] - 1-2 Weeks Taisha Stratton MD [Primary Care Provider] - (Within 2 weeks.) Time spent managing pt's care (in minutes): 35
--- NOTE | 2022-04-18 08:23 | ECHO ---
HEIGHT: 5 ft 9 in WEIGHT: 156 lb 0 oz DATE OF STUDY: 04/17/[address]: Power Lau MD 2-DIMENSIONAL: YES M.MODE: YES DOPPLER: YES COLOR FLOW: YES TDS: PORTABLE: YES DEFINITY: BUBBLE STUDY: DIAGNOSIS: ELEVATED TROPONIN CARDIAC HISTORY: CATHERIZATION: SURGERY: PROSTHETIC VALVE: PACEMAKER: MEASUREMENTS (cm) DIASTOLIC (NORMALS) SYSTOLIC (NORMALS) IVSd 1.3 (0.6-1.2) LA Diam 4.1 (1.9-4.0) LVEF 20-25% LVIDd 4.5 (3.5-5.7) LVIDs 3.8 (2.0-3.5) %FS % LVPWd 1.2 (0.6-1.2) Ao Diam 2.7 (2.0-3.7) 2 DIMENSIONAL ASSESSMENT: RIGHT ATRIUM: NORMAL LEFT ATRIUM: DILATED RIGHT VENTRICLE: NORMAL LEFT VENTRICLE: NORMAL SIZE TRICUSPID VALVE: NORMAL MITRAL VALVE: NORMAL PULMONIC VALVE: NORMAL AORTIC VALVE: NORMAL PERICARDIAL EFFUSION: NONE AORTIC ROOT: NORMAL LEFT VENTRICULAR WALL MOTION: SEVERE GLOBAL HYPOKINESIS DOPPLER/COLOR FLOW: NORMAL COMMENTS: 1. SEVERE GLOBAL HYPOKINESIS 2. EJECTION FRACTION 20-25% 3. LEFT ATRIAL ENLARGEMENT 4. NO THROMBUS TECHNOLOGIST: JAMIA BALTAZAR
== END 2022-04-17 15:38 | DRG 813 ==
LOC: ER 08:57 → ERHOLD 12:44 → 2ND 04-13 10:00
PROVIDERS: ADMIT Hospitalist; ATTEND Internal Medicine
DX: D68.32 Hemorrhagic disorder due to extrinsic circulating anticoagulants (principal); I48.20 Chronic atrial fibrillation, unspecified; I50.22 Chronic systolic (congestive) heart failure; I11.0 Hypertensive heart disease with heart failure; K06.8 Other specified disorders of gingiva and edentulous alveolar ridge; E87.6 Hypokalemia; E78.5 Hyperlipidemia, unspecified; E83.39 Other disorders of phosphorus metabolism; I25.10 Atherosclerotic heart disease of native coronary artery without angina pectoris; I25.2 Old myocardial infarction; T45.515A Adverse effect of anticoagulants, initial encounter; R77.8 Other specified abnormalities of plasma proteins; Z86.73 Personal history of transient ischemic attack (TIA), and cerebral infarction without residual deficits; Z79.82 Long term (current) use of aspirin; Z79.01 Long term (current) use of anticoagulants; Z79.899 Other long term (current) drug therapy; Z20.822 Contact with and (suspected) exposure to COVID-19
CPT/HCPCS: 36415; 70450; 71045; 76705; 80048; 80053; 80076; 82088; 83735; 83880; 84100; 84132; 84244; 84484; 85025; 85027; 85610; 87811; 93005; 93306; 97110; 97116; 97161; 97530; 99285; J0282; J3475; J3480; J7030; J7050; J7060; U0003

== ENCOUNTER 2022-06-06 09:58 | Inpatient (IN) | payer OTHER ==
--- OUTSIDE RECORDS SUMMARY | 2022-06-06 10:04 | XMS REPORT | Continuity of Care Document ---
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 [facility] 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) [facility] Atrial Atrial Problem Active Common fibrillati fibrillati Sp asher on on [facility] Hypertensi Hypertensi Problem Active C ommon on on [facility] Allergies, Adverse Reactions, Alerts Allergy Allergy Status Severity Reaction(s) Onset Inactive Treating Comm ents Source Name Type Date Date Clinician No Known DA Active U [facility] Allergie 08-27 Clear s 00:00: العلي 00 [facility] Social History Social Habit Start Date Stop Date Quantity Comments Source History of Tobacco Use Co mmon [facility] Sex Assigned At Com mon [facility] Smoking Status Start Date Stop Date Source Never Smoker Common [facility] Medications Ordered Filled Start Stop Current Ordering Indication Dosage Frequency Signature Comments Components Source Medication Medication Date Date Medication? Clinician (SIG) Name Name Lisinopril Lisinopril No 1{table QD Lisinopril 20 MG 20 MG t} 20 MG Apixaban 5 Apixaban 5 No BID Apixaban 5 MG MG MG Metoprolol Metoprolol No 1{table BID Metoprolol Tartrate 50 Tartrate 50 t_with_ Tartrate MG MG food} 50 MG amLODIPine amLODIPine No 1{table QD amLODIPine Besylate 10 Besylate 10 t} Besylate MG MG 10 MG Vital Signs Vital Name Observation Time Observation Value Comments Source height 2021-11-06 15:30:00 76.00 [in_i] [facility] weight 2021-11-06 15:30:00 188.4 [lb_av] [facility] temperature 2021-11-06 15:30:00 97.6 [degF] [facility] bmi 2021-11-06 15:30:00 22.93 kg/m2 [facility] oximetry 2021-11-06 15:30:00 98 % [facility] respiratory rate 2021-11-06 15:30:00 16 /min Comm on [facility] blood pressure 2021-11-06 15:30:00 160 mm[Hg] Common [facility] - systolic [facility] blood pressure 2021-11-06 15:30:00 100 mm[Hg] [facility] [place] [place] diastolic [facility] Procedures Procedure Date / Time Performed Performing Clinician Anahi arana [id number] 2021-08-29 00:00:00 RASSA [facility] Encounters Start End Encounter Admission Attending Care Care Encounter Source Date/Time Date/Time Type Type Clinicians Facility Department ID 2022-04-16 Outpatient [facility] [id number] Common 09:18:02 [id number] [facility] 2021-11-28 Inpatient SASHA Matthew, SHARMAINECL OUTD [id number] [facility] 10:15:00 George 86 [facility] 2021-11-06 Outpatient [facility] [id number] Common 15:24:03 8[address] [facility] - [facility] 2021-10-24 Inpatient RONDA Perkins OUTD [id number] [facility] 09:45:00 George 93 [facility] 2021-11-06 2021-11-06 [facility] [id number] Co mmon 00:00:00 00:00:00 VISIT [facility] it PT LEVEL 4 - [facility] 2021-08-29 2021-08-30 Inpatient RONDA Thomas INTE.02 [id number] [facility] 13:52:00 13:53:00 [place] 39 [facility] 2021-08-25 2021-08-25 Outpatient RONDA Thomas 3DAY [id number] [facility] 08:00:00 08:01:00 [facility] Results Test Description Test Time Test Comments Results Result Comments Source BASIC METABOLIC PANEL 2021-08-30 07:56:00 Test Item Value Reference Range Interpretation Comme nts SODIUM (test code = NA) 140 mEq/L 134-147 N POTASSIUM (test code = K) 4.8 mEq/L 3.4-5.0 N CHLORIDE (test code = CL) 104 mEq/L 100-108 N CARBON DIOXIDE (test code = CO2) 31 mEq/l 21-33 N ANION GAP (test code = GAP) 10 0-20 N GLUCOSE (test code = GLU) 96 mg/dL 70-110 N BLOOD UREA NITROGEN (test code = 15 mg/dL 7-18 N BUN) GLOMERULAR FILTRATION RATE (test 59.7 70-80 L Units of measure = ml/min/1.73 code = GFR) m2 CREATININE (test code = CREAT) 1.2 mg/dL 0.6-1.3 N CALCIUM (test code = CA) 9.2 mg/dL 8.0-10.5 N CBC W/AUTO [id number] 07:33:00 Test Item Value Reference Range Interpretation Comments WHITE BLOOD CELL (test code = 6.1 x10 3/uL 4.5-11.0 N WBC) RED BLOOD CELL (test code = 4.73 x10 6/uL 4.00-5.60 N RBC) HEMOGLOBIN (test code = HGB) 14.4 g/dL 12.5-16.9 N HEMATOCRIT (test code = HCT) 45.6 % 37.5-50.7 N MEAN CELL VOLUME (test code = 96.4 fL 81.0-99.0 N MCV) MEAN CELL HGB (test code = MCH) 30.4 pg 27.0-33.0 N MEAN CELL HGB CONCETRATION 31.6 g/dL 33.0-37.0 L (test code = MCHC) RED CELL DISTRIBUTION WIDTH CV 12.7 % 11.5-14.5 N (test code = RDW) RED CELL DISTRIBUTION WIDTH SD 46.0 fL 37.0-54.0 N (test code = RDW-SD) PLATELET COUNT (test code = 251 x10 3/uL 150-400 N PLT) MEAN PLATELET VOLUME (test code 10.6 fL 7.0-9.0 H = MPV) NEUTROPHIL % (test code = NT%) 64.1 % 56.0-77.0 N IMMATURE GRANULOCYTE % (test 0.2 % 0.0-2.0 N code = IG%) LYMPHOCYTE % (test code = LY%) 20.8 % 14.0-32.0 N MONOCYTE % (test code = MO%) 14.6 % 4.8-9.0 H EOSINOPHIL % (test code = EO%) 0.0 % 0.3-3.7 L BASOPHIL % (test code = BA%) 0.3 % 0.0-2.0 N NUCLEATED RBC % (test code = 0.0 % 0-0 N NRBC%) NEUTROPHIL # (test code = NT#) 3.91 x10 3/uL 2.0-7.6 N IMMATURE GRANULOCYTE # (test 0.01 x10 3/uL 0.00-0.03 N code = IG#) LYMPHOCYTE # (test code = LY#) 1.27 x10 3/uL 1.0-3.8 N MONOCYTE # (test code = MO#) 0.89 x10 3/uL 0.1-0.8 H EOSINOPHIL # (test code = EO#) 0.00 x10 3/uL 0.0-0.2 N BASOPHIL # (test code = BA#) 0.02 x10 3/uL 0.0-0.2 N NUCLEATED RBC # (test code = 0.00 x10 3/uL 0.0-0.1 N NRBC#) MANUAL DIFF REQUIRED (test code NO = MDIFF) GLUCOSE [id number] 20:44:00 Test Item Value Reference Range Interpretation Comments GLUCOSE BEDSIDE (test 132 MG/DL 70-110 H Perfor med by certified code = GLUBED) 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 [place] [place] : 1950 Age/S: 71/M [address] [place] [address] Bl Unit #: [id number] Loc: [place] [address] Phys: Vincent Shoemaker [facility] Acct: [id number] Dis Date: Status: ADM IN PHONE #: [phone] Exam Date: 08/29/2021 1511 FAX #: [phone] Reason: WATCHMAN EXAMS: CPT CODE: [id number] XR CHEST 1 V 86480 PROCEDURE INFORMATION: Exam: XR Chest Exam date and time: 08/29/2021 2:16 PM Age: 71 years old Clinical indication: Device placement; Other: Watchman TECHNIQUE: Imaging protocol: XR of the chest. Views: 1 view. COMPARISON: DX XR CHEST 2 V 08/27/2021 5:18 PM FINDINGS: Lungs: Mild decreased lung volumes. No consolidation. Pleural spaces: Unremarkable. No pleural effusion. No pneumothorax. Heart/Mediastinum: Cardiomegaly, unchanged. Vasculature is unremarkable. Bones/joints: Unremarkable. IMPRESSION: No acute cardiopulmonary findings. at 5540 Reported and signed by: Jovanny Lambert M.D. CC: George Castro MD; Vincent Shoemaker Technologist: RT Sameera(R) Trnscrd Date/Time/By: 08/29/2021 (9028) : By: [email or web address] Orig Print D/T: S: 08/29/2021 (9003) PAGE 1 Signed ReportNovel Coronavirus 2019 [id number] 02:32:00 Test Item Value Reference Range Interpretation Comments Novel Coronavirus Negative Negative Positive r esults are 2019 Inhouse (test indicativ e of the presence code = COVNONPUI) ofSARS-CoV -2 RNA, clinical correlation wit h patient historyand othe r diagnostic info rmation is necessary to determinepatien t infection status. Positiv e results do not rule out bacterial infection or co -infection with other viru ses. Negative result s do not preclude SARS-C oV-2 infection andsh ould not be used as the swathi e basis for patient managementdecis ions. Negative result s must be combined with otherclinical observations, p atient history, and epidemiological information . Detection of SARS-CoV-2 RNA may be affe cted bysample collec tion methods, storag e conditions, and /or stageof infection. Ame l RNA mutations, vacc inations, antiviraltherap eutics, antibiotics, chemotherapeuti c orimmunosuppres kendrick drugs have not been e valuated for effectson d etection. Results are for the identification of SARS-CoV-2 RNA usingreal-time (RT) polymerase wilberto n reaction (PCR) technolog yfor the qualitative det ection of nucleic acids f rom [id number] v irus and diagnosis of SA RS-CoV-2 virusinfection. It is an Emergency Use Authorization ( EUA) testauthorized by the U.S. FDA. BASIC METABOLIC [id number] 17:01:00 Test Item Value Reference Range Interpretation Comments SODIUM (test code = NA) 140 mEq/L 134-147 N POTASSIUM (test code = 4.2 mEq/L 3.4-5.0 N K) CHLORIDE (test code = 104 mEq/L 100-108 N CL) CARBON DIOXIDE (test 32 mEq/l 21-33 N code = CO2) ANION GAP (test code = 9 0-20 N GAP) GLUCOSE (test code = 99 mg/dL 70-110 N GLU) BLOOD UREA NITROGEN 9 mg/dL 7-18 N (test code = BUN) GLOMERULAR FILTRATION 66.0 70-80 L Units of measure = RATE (test code = GFR) ml/mi n/1.73 m2 CREATININE (test code = 1.1 mg/dL 0.6-1.3 N CREAT) CALCIUM (test code = 9.7 mg/dL 8.0-10.5 N CA) [id number] 17:01:00 Test Item Value Reference Range Interpretation Comments PREALBUMIN (test code = PREALB) 16.4 mg/dL 16.0-40.0 N PROTHROMBIN [id number] 16:54:00 Test Item Value Reference Range Interpretation Comments PROTHROMBIN TIME 14.2 SECONDS 9.3-12.9 H PATIENT (test code = PTP) INTERNATIONAL NORMAL 1.3 0.8-1.2 H TARGE T INR BY RATIO (test code = INDICATIO N Indication INR) INR1. Prophylax is of venous thrombos is 2.0 - 3.0 (orthoped ic surgery), Proph ylaxis of venous throm bosis (other than hig h-risk surgery), Treat ment of Deep Vein Thrombosis/Pulm onary Embolism, Preve ntion of systemic emb olism - Tissue heart va lves, Acute Myocardia l Infarction (to prevent systemic embol ism), Valvular heart disease, Atrial Fibrillation, Bileaflet mecha nical valve in aortic position.2. Mec hanical prosthetic valv es (high risk), 2. 5 - 3.5 Presence of Lup us Anticoagulant o r Antiphospholipi d Antibodies, Pre vention of systemic emb olism - Acute Myocardia l Infarction (to prevent recurrent infar ct). CBC W/AUTO [id number] 16:39:00 Test Item Value Reference Range Interpretation Comments WHITE BLOOD CELL (test code = 4.8 x10 3/uL 4.5-11.0 N WBC) RED BLOOD CELL (test code = 5.50 x10 6/uL 4.00-5.60 N RBC) HEMOGLOBIN (test code = HGB) 17.2 g/dL 12.5-16.9 H HEMATOCRIT (test code = HCT) 53.4 % 37.5-50.7 H MEAN CELL VOLUME (test code = 97.1 fL 81.0-99.0 N MCV) MEAN CELL HGB (test code = MCH) 31.3 pg 27.0-33.0 N MEAN CELL HGB CONCETRATION 32.2 g/dL 33.0-37.0 L (test code = MCHC) RED CELL DISTRIBUTION WIDTH CV 12.9 % 11.5-14.5 N (test code = RDW) RED CELL DISTRIBUTION WIDTH SD 46.1 fL 37.0-54.0 N (test code = RDW-SD) PLATELET COUNT (test code = 253 x10 3/uL 150-400 N PLT) MEAN PLATELET VOLUME (test code 9.9 fL 7.0-9.0 H = MPV) NEUTROPHIL % (test code = NT%) 49.5 % 56.0-77.0 L IMMATURE GRANULOCYTE % (test 0.2 % 0.0-2.0 N code = IG%) LYMPHOCYTE % (test code = LY%) 35.7 % 14.0-32.0 H MONOCYTE % (test code = MO%) 13.2 % 4.8-9.0 H EOSINOPHIL % (test code = EO%) 0.4 % 0.3-3.7 N BASOPHIL % (test code = BA%) 1.0 % 0.0-2.0 N NUCLEATED RBC % (test code = 0.0 % 0-0 N NRBC%) NEUTROPHIL # (test code = NT#) 2.37 x10 3/uL 2.0-7.6 N IMMATURE GRANULOCYTE # (test 0.01 x10 3/uL 0.00-0.03 N code = IG#) LYMPHOCYTE # (test code = LY#) 1.71 x10 3/uL 1.0-3.8 N MONOCYTE # (test code = MO#) 0.63 x10 3/uL 0.1-0.8 N EOSINOPHIL # (test code = EO#) 0.02 x10 3/uL 0.0-0.2 N BASOPHIL # (test code = BA#) 0.05 x10 3/uL 0.0-0.2 N NUCLEATED RBC # (test code = 0.00 x10 3/uL 0.0-0.1 N NRBC#) MANUAL DIFF REQUIRED (test code NO = MDIFF) - XR CHEST 2 [id number] 00:00:00 [facility] : 1950 Sex: M FAX: George Ramires MD [phone] [place]: [address]: PRE Name: BERNARDA ROIS [facility] [place] : 1950 Age/S: 71/M [address] [place] [address] Unit #: [id number] Loc: [place] [address] Phys: George Castro MD Acct: [id number] Dis Date: Status: PRE SDC PHONE #: [phone] Exam Date: FAX #: [phone] Reason: PREOP EXAMS: CPT CODE: [id number] XR CHEST 2 V 46087 PROCEDURE INFORMATION: Exam: XR Chest Exam date and time: 08/27/2021 5:18 PM Age: 71 years old Clinical indication:Screening exam; Pre- operative exam; Cardiovascular screening; Additional info: Preop TECHNIQUE: Imaging protocol: XR of the chest. Views: 2 views. PA and Lateral COMPARISON: No relevant prior studies available. FINDINGS: Lungs: The lungs are clear. Pleural spaces: No pleural effusion. No pneumothorax. Heart/Mediastinum: Cardiomediastinal silhouette is enlarged. Bones/joints: No acute bony finding. IMPRESSION: No acute or active pulmonary findings. at 2326 Reported and signed by: Espinoza Berrios M.D. CC: George Castro MD Technologist: RT Rashmi(Sonali) Trnscharjit Date/Time/By: 08/27/2021 (7625) : By: [email or web address] Orig Print D/T:S: 08/27/2021 (5922) PAGE 1 Signed Report
[2022-06-06 10:43] LABS: Absolute Lymphocytes (CBC) 1.5 K/uL (0.7-4.9); Hematocrit 34.5 % (39.6-49.0); Lymphocytes % 22.3 % (15.3-44.8); MCV 90.3 fL (80-100); MPV 7.9 fL (7.6-11.3); RBC Red Blood Cell Count 3.82 M/uL (4.33-5.43)
[2022-06-06 10:47] LABS: Protime INR 1.33
--- NOTE | 2022-06-06 11:03 | RAD REPORT ---
EXAM DESCRIPTION: RAD - Chest Single View - 06/06/2022 10:40 am CLINICAL HISTORY: DYSPNEA, shortness of breath COMPARISON: Portable 04/12/2022 TECHNIQUE: AP portable chest image was obtained 06/06/2022 10:40 am . FINDINGS: Lung volumes are low accentuating heart, vasculature and lung markings. Hazy opacification seen over both lower lung jama suspected to be pleural effusions on this semi-upright examination. Mild patchy alveolar opacities present in each lung base. Cardiac silhouette is stable from prior imaging. No new hilar abnormality seen. No measurable pleura l effusion and no pneumothorax. No acute bony abnormality seen. No acute aortic findings suspected. IMPRESSION: Small bilateral pleural effusions are suspected with interstitial and patchy alveolar op acification present. CHF/ volume overload is suspected.
[2022-06-06] MEDS ORDERED: FUROSEMIDE 40 MG/4 ML VIAL ONE (12:01)
[2022-06-06 13:37] LABS: AST/SGOT 15 U/L (15-37); Albumin 2.6 g/dL (3.4-5.0); Alkaline Phosphatase 88 U/L (45-117); BUN Blood Urea Nitrogen 8 mg/dL (7-18); Bicarbonate 37 mmol/L (21-32); Bilirubin Direct 0.6 mg/dL (0-0.2); Bilirubin Total 1.2 mg/dL (0.2-1.0); Glomerular Filtration Rate 80 ml/min (=/>90); Glucose Level 93 mg/dL (74-106); Magnesium 1.4 mg/dL (1.6-2.4); NT PRO-BNP 11648 pg/mL (<125); Potassium 3.3 mmol/L (3.5-5.1); Protein, Total 6.9 g/dL (6.4-8.2); Sodium Level 137 mmol/L (136-145)
[2022-06-06 13:41] LABS: ALT/SGPT < 10 U/L (16-61)
[2022-06-06 13:43] LABS: Troponin High Sensitivity 146.6 pg/mL (<58.9)
--- NOTE | 2022-06-06 13:46 | ER ---
Nurse's Notes [facility] Name: Henrry Rios Age: 71 yrs Sex: Male : 1950 Arrival Date: 06/06/2022 Time: 10:02 Bed 8 Private MD: Diagnosis: Heart failure, unspecified;Acute pulmonary edema;Generalized edema;Hypomagnesemia;Subsequent non-ST elevation (NSTEMI) myocardial infarction;Anemia, unspecified Presentation: 06/06 10:03 Chief complaint: EMS states: Pt from [place], staff reports increased swelling to ph lower and upper extremities, pt also reports increased SOB, 90% RA, improved to 100% on NC. Coronavirus screen: Vaccine status: Patient reports receiving the 2nd dose of the covid vaccine. Ebola Screen: No symptoms or risks identified at this time. Initial Sepsis Screen: Does the patient meet any 2 criteria? No. Patient's initial sepsis screen is negative. Does the patient have a suspected source of infection? No. Patient's initial sepsis screen is negative. Risk Assessment: Do you want to hurt yourself or someone else? Patient reports no desire to harm self or others. Onset of symptoms was June 06, 2022. 10:03 Method Of Arrival: EMS: [facility] ph 10:03 Acuity: KALEY 3 ph Triage Assessment: 10:08 General: Appears in no apparent distress. comfortable, Behavior is calm, cooperative, ph appropriate for age. Cardiovascular: Edema is 2+ to right upper arm, right elbow, right forearm, right wrist, left upper arm, left elbow and left forearm is 3+ to left midcalf, left ankle, left foot, right midcalf, right ankle and right foot. Respiratory: Reports shortness of breath at rest Airway is patent Respiratory effort is even, unlabored, Onset: The symptoms/episode began/occurred gradually, the patient has mild shortness of breath. Historical: - Allergies: 10:09 No Known Allergies; ph - Home Meds: 10:09 amiodarone 200 mg Oral tab 1 tab once daily [Active]; aspirin 81 mg Oral cap 1 cap once ph daily [Active]; atorvastatin 20 mg oral tab 1 tab once daily [Active]; clonidine HCl 0.1 mg Oral tab 1 tab PRN q8h for SBP > 170 of DBP > 110 [Active]; folic acid 1 mg Oral tab 1 tab once daily [Active]; Lasix 40 mg Oral tab 1 tab once daily [Active]; losartan 25 mg oral tab 1 tab once daily [Active]; metoprolol tartrate 50 mg Oral tab 1 tab 2 times per day [Active]; potassium chloride 20 mEq Oral TbER 2 tab once daily [Active]; - PMHx: 10:09 Atrial fibrillation; Hypertensive disorder; stroke of unknown type-2019; Myocardial ph infarction; Congestive heart failure; - Immunization history:: Adult Immunizations unknown. - Social history:: Smoking status: unknown. Screenin:07 [facility] ED Fall Risk Assessment (Adult) History of falling in the last 3 months, ph including since admission No falls in past 3 months (0 pts) Confusion or Disorientation No (0 pts) Intoxicated or Sedated No (0 pts) Impaired Gait Yes (1 pt) Mobility Assist Device Used No (0 pt) Altered Elimination No (0 pt) Score/Fall Risk Level 0 - 2 = Low Risk Oriented to surroundings, Maintained a safe environment, Hourly rounding (assess needs \T\ fall precautionary measures) done. Abuse screen: Denies threats or abuse. Denies injuries from another. Nutritional screening: No deficits noted. Tuberculosis screening: No symptoms or risk factors identified. Assessment: 10:05 General: Appears in no apparent distress. comfortable, Behavior is calm, cooperative, kc6 appropriate for age. Pain: Denies pain. Neuro: Lowery Agitation-Sedation Scale (RASS): 0 - Alert and Calm Level of Consciousness is awake, alert, obeys commands, Oriented to person, place, time, situation, Appropriate for age. Cardiovascular: Heart tones S1 S2 present Capillary refill < 3 seconds Rhythm is atrial fibrillation. Cardiovascular: Edema is 2+ to left forearm and right forearm is 4+ to JENNIFER lower extremities pitting to left forearm and right forearm. Respiratory: Reports shortness of breath Airway is patent Trachea midline Respiratory effort is even, unlabored, Respiratory pattern is regular, symmetrical, Breath sounds with crackles in left posterior lower lobe. GI: No signs and/or symptoms were reported involving the gastrointestinal system. : No signs and/or symptoms were reported regarding the genitourinary system. EENT: No signs and/or symptoms were reported regarding the EENT system. Derm: No signs and/or symptoms reported regarding the dermatologic system. Skin is intact, Skin is pink, warm \T\ dry. Musculoskeletal: No signs and/or symptoms reported regarding the musculoskeletal system. Circulation, motion, and sensation intact. Capillary refill < 3 seconds, Range of motion: intact in all extremities. 10:55 Reassessment: Patient appears in no apparent distress at this time. No changes from kc6 previously documented assessment. Patient and/or family updated on plan of care and expected duration. Pain level reassessed. Patient is alert, oriented x 3, equal unlabored respirations, skin warm/dry/pink. 11:25 Reassessment: Patient appears in no apparent distress at this time. No changes from kc6 previously documented assessment. Patient and/or family updated on plan of care and expected duration. Pain level reassessed. Patient is alert, oriented x 3, equal unlabored respirations, skin warm/dry/pink. 11:45 Reassessment: inside lab contacted for third recollect. kc6 12:15 Reassessment: Patient appears in no apparent distress at this time. No changes from kc previously documented assessment. Patient and/or family updated on plan of care and expected duration. Pain level reassessed. Patient is alert, oriented x 3, equal unlabored respirations, skin warm/dry/pink. 12:44 Reassessment: spoke with Urszula from inside lab. stated she is on her way. kc6 13:15 Reassessment: Patient appears in no apparent distress at this time. No changes from kc previously documented assessment. Patient and/or family updated on plan of care and expected duration. Pain level reassessed. Patient is alert, oriented x 3, equal unlabored respirations, skin warm/dry/pink. 14:15 Reassessment: Patient appears in no apparent distress at this time. No changes from kc6 previously documented assessment. Patient and/or family updated on plan of care and expected duration. Pain level reassessed. Patient is alert, oriented x 3, equal unlabored respirations, skin warm/dry/pink. Patient denies pain at this time. 15:15 Reassessment: Patient appears in no apparent distress at this time. No changes from ph previously documented assessment. Patient and/or family updated on plan of care and expected duration. Pain level reassessed. Patient is alert, oriented x 3, equal unlabored respirations, skin warm/dry/pink. Patient denies pain at this time. 16:15 Reassessment: Patient appears in no apparent distress at this time. No changes from kc6 previously documented assessment. Patient and/or family updated on plan of care and expected duration. Pain level reassessed. Patient is alert, oriented x 3, equal unlabored respirations, skin warm/dry/pink. Patient denies pain at this time. 16:22 Reassessment: attempted to call report to 2nd floor. stated the nurse is in a patients kc6 room and will call me back. Vital Signs: 10:03 BP 140 / 100; Pulse 79; Resp 18; Temp 97.9; Pulse Ox 98% on R/A; Weight 95.25 kg; ph Height 5 ft. 11 in. (180.34 cm); 10:08 BP 156 / 118; Pulse 84; Resp 11 S; Temp 97.9(O); Pulse Ox 97% on R/A; Pain 0/10; kc6 10:52 BP 140 / 103; Pulse 74; Resp 10 S; Pulse Ox 99% on 2 lpm NC; Pain 0/10; kc6 11:25 BP 147 / 95; Pulse 73; Resp 24 S; Pulse Ox 96% on 2 lpm NC; Pain 0/10; kc6 12:25 BP 155 / 104; Pulse 75; Resp 18 S; Pulse Ox 100% on 2 lpm NC; Pain 0/10; kc6 13:25 BP 143 / 106; Pulse 88; Resp 20 S; Pulse Ox 98% on 2 lpm NC; Pain 0/10; kc6 15:25 BP 148 / 90; Pulse 87; Resp 19 S; Pulse Ox 100% on 2 lpm NC; Pain 0/10; ph 16:25 BP 153 / 106; Pulse 83; Resp 20 S; Pulse Ox 100% on 2 lpm NC; Pain 0/10; kc6 10:03 Body Mass Index 29.29 (95.25 kg, 180.34 cm) ph ED Course: 10:02 Patient arrived in ED. ph 10:04 Sukumar Clemetns DO is Attending Physician. ms3 10:05 Celina Chisholm, USAMA is Primary Nurse. kc6 10:07 Triage completed. ph 10:08 Arm band placed on Patient placed in an exam room, on a stretcher, on shelter monitor, ph on pulse oximetry. 10:15 Patient has correct armband on for positive identification. Bed in low position. Call kc6 light in reach. Side rails up X2. 10:29 Missed attempt(s): 20 gauge in right antecubital area. Bleeding controlled, band aid ss applied, catheter tip intact. 10:33 Initial lab(s) drawn, by ED staff, sent to lab. Missed attempt(s): 22 gauge in right kc6 antecubital area. Bleeding controlled, band aid applied, catheter tip intact. Inserted saline lock: 20 gauge in right forearm, using aseptic technique. Blood collected. 10:42 XRAY Chest (1 view) In Process Unspecified. EDMS 13:45 Joshua Louis MD is Hospitalizing Provider. ms3 16:33 No provider procedures requiring assistance completed. Patient admitted, IV remains in kc6 place. Administered Medications: 12:04 Drug: Lasix (furosemide) 40 mg Route: IVP; Site: right forearm; kc6 13:47 Follow up: Response: No adverse reaction kc 13:52 Drug: Aspirin 325 mg Route: PO; kc6 15:12 Follow up: Response: No adverse reaction [facility] Medication: 10:15 VIS not applicable for this client. ph Outcome: 13:46 Decision to Hospitalize by Provider. ms3 16:33 Admitted to Med/surg accompanied by tech, via stretcher, room 232, with oxygen, with [facility] chart, Report called to USAMA Jeff 16:33 Condition: stable 16:33 Instructed on the need for admit. 17:30 Patient left the ED. kc Signatures: Dispatcher [employer] EDPR Laura Salinas RN RN Shiela Aden RN RN Sukumar Clements, DO DO ms3 Celina Chisholm, RN RN kc6 Corrections: (The following items were deleted from the chart) 10:55 10:05 General: Appears in no apparent distress. comfortable, Behavior is calm, kc6 cooperative, appropriate for age, kc6 10:55 10:05 Respiratory: Airway is patent Trachea midline Respiratory effort is even, kc6 unlabored, Respiratory pattern is regular, symmetrical, Breath sounds with crackles in left posterior lower lobe kc6 10:55 10:05 Cardiovascular: Edema is 4+ to JENNIFER lower extremities pitting to JENNIFER lower kc6 extremities kc6
--- NOTE | 2022-06-06 13:46 | EDPHYS ---
Physician Documentation [facility] Name: Hnerry Rios Age: 71 yrs Sex: Male : 1950 Arrival Date: 06/06/2022 Time: 10:02 Bed 8 Private MD: ED Physician Sukumar Clements HPI: 06/06 10:05 This 71 yrs old Black Male presents to ER via Unassigned with complaints of Swelling of ms3 Lower Extremity, Shortness Of Breath. 10:05 71-year-old male with past medical history of hypertension, atrial fibrillation, heart ms3 failure presents via [facility] for fluid retention has become worse over the last 2 days. Patient has developed shortness of breath. Nursing staff at [facility] reported to EMS patient's oxygen saturation was in the low 90s on room air. EMS noted patient's blood pressure to be 162/109, heart rate 78, respiratory rate 18. EMS noted left lower lobe rales.. Historical: - Allergies: 10:09 No Known Allergies; ph - Home Meds: 10:09 amiodarone 200 mg Oral tab 1 tab once daily [Active]; aspirin 81 mg Oral cap 1 cap once ph daily [Active]; atorvastatin 20 mg oral tab 1 tab once daily [Active]; clonidine HCl 0.1 mg Oral tab 1 tab PRN q8h for SBP > 170 of DBP > 110 [Active]; folic acid 1 mg Oral tab 1 tab once daily [Active]; Lasix 40 mg Oral tab 1 tab once daily [Active]; losartan 25 mg oral tab 1 tab once daily [Active]; metoprolol tartrate 50 mg Oral tab 1 tab 2 times per day [Active]; potassium chloride 20 mEq Oral TbER 2 tab once daily [Active]; - PMHx: 10:09 Atrial fibrillation; Hypertensive disorder; stroke of unknown type-2019; Myocardial ph infarction; Congestive heart failure; - Immunization history:: Adult Immunizations unknown. - Social history:: Smoking status: unknown. ROS: 10:05 Constitutional: Negative for fever, and chills. Neck: Negative for injury, pain, and ms3 swelling, Cardiovascular: Negative for chest pain, and palpitations. 10:05 MS/Extremity: Negative for injury and deformity, Skin: Negative for injury, rash, and discoloration, Neuro: Negative for headache, weakness, numbness, tingling. 10:05 Respiratory: Positive for shortness of breath. 10:05 MS/extremity: Positive for Edema. 10:05 All other systems are negative. Exam: 10:05 Constitutional: This is a well developed, well nourished patient who is awake, alert, ms3 and in no acute distress. Head/Face: Normocephalic, atraumatic. Chest/axilla: Normal chest wall appearance and motion. Nontender with no deformity. Cardiovascular: Regular rate and rhythm with a normal S1 and S2. No gallops, murmurs, or rubs. Normal PMI, no JVD. No pulse deficits. 10:05 Abdomen/GI: Soft, non-tender, with normal bowel sounds. No distension or tympany. No guarding or rebound. No evidence of tenderness throughout. Back: No spinal tenderness. No costovertebral tenderness. Full range of motion. Skin: Warm, dry with normal turgor. Normal color with no rashes, no lesions, and no evidence of cellulitis. Neuro: Awake and alert, GCS 15, oriented to person, place, time, and situation. Cranial nerves II-XII grossly intact. Motor strength 5/5 in all extremities. Sensory grossly intact. Cerebellar exam normal. Normal gait. 10:05 Respiratory: the patient does not display signs of respiratory distress, Respirations: normal, Breath sounds: rales, that are mild, are heard in the left posterior lower lobe. 10:29 ECG was reviewed by the Attending Physician. ms3 Vital Signs: 10:03 BP 140 / 100; Pulse 79; Resp 18; Temp 97.9; Pulse Ox 98% on R/A; Weight 95.25 kg; ph Height 5 ft. 11 in. (180.34 cm); 10:08 BP 156 / 118; Pulse 84; Resp 11 S; Temp 97.9(O); Pulse Ox 97% on R/A; Pain 0/10; kc6 10:52 BP 140 / 103; Pulse 74; Resp 10 S; Pulse Ox 99% on 2 lpm NC; Pain 0/10; kc6 11:25 BP 147 / 95; Pulse 73; Resp 24 S; Pulse Ox 96% on 2 lpm NC; Pain 0/10; kc6 12:25 BP 155 / 104; Pulse 75; Resp 18 S; Pulse Ox 100% on 2 lpm NC; Pain 0/10; kc6 13:25 BP 143 / 106; Pulse 88; Resp 20 S; Pulse Ox 98% on 2 lpm NC; Pain 0/10; kc6 15:25 BP 148 / 90; Pulse 87; Resp 19 S; Pulse Ox 100% on 2 lpm NC; Pain 0/10; ph 16:25 BP 153 / 106; Pulse 83; Resp 20 S; Pulse Ox 100% on 2 lpm NC; Pain 0/10; kc6 10:03 Body Mass Index 29.29 (95.25 kg, 180.34 cm) ph MDM: 10:05 Patient medically screened. ms3 10:05 Differential diagnosis: Heart Failure vs ACS vs Hypoalbuminemia. ms3 13:15 Awaiting: labs results. ms3 13:46 Data reviewed: vital signs, nurses notes, lab test result(s), EKG, radiologic studies, ms3 and as a result, I will admit patient. Consideration of Admission/Observation Patient was admitted/placed on observation. Management of patient was discussed with the following: Hospitalist: Dr. Louis. 13:46 I considered the following discharge prescriptions or medication management in the [facility] emergency department Medications were administered in the Emergency Department. See MAR. Independent interpretation of the following test(s) in the Emergency Department EKG: See my EKG interpretation above media monitor: rate is 84 beats/min, Rhythm is atrial fibrillation, with no ectopy, Interpretation: normal rate, atrial fibrillation. 13:46 Counseling: I had a detailed discussion with the patient and/or guardian regarding: the [facility] historical points, exam findings, and any diagnostic results supporting the discharge/admit diagnosis, lab results, radiology results, the need for further work-up and treatment in the hospital. ED course: Discussed necessity of admission with patient and his . They understand agree with plan. All questions were answered. Patient remained in stable condition while in the emergency department. 06/06 10:05 Order name: Basic Metabolic Panel; Complete Time: 13:46 ms3 06/06 10:05 Order name: CBC with Diff ms3 06/06 10:05 Order name: LFT's; Complete Time: 13:46 ms3 06/06 10:05 Order name: Magnesium; Complete Time: 13:46 ms3 06/06 10:05 Order name: NT PRO-BNP; Complete Time: 13:46 ms3 06/06 10:05 Order name: PT-INR; Complete Time: 11:08 ms3 06/06 10:05 Order name: Troponin HS; Complete Time: 13:46 ms3 06/06 10:05 Order name: XRAY Chest (1 view); Complete Time: 11:08 ms3 06/06 10:05 Order name: EKG; Complete Time: 10:05 ms3 06/06 10:05 Order name: Cardiac monitoring; Complete Time: 10:05 ms3 06/06 14:16 Order name: SARS RAPID em1 06/06 15:06 Order name: SARS-COV-2 Antigen Rapid EDMS 06/06 10:05 Order name: EKG - Nurse/Tech; Complete Time: 10:33 ms3 06/06 10:05 Order name: IV Saline Lock; Complete Time: 10:33 ms3 06/06 10:05 Order name: Labs collected and sent; Complete Time: 10:33 ms3 06/06 10:05 Order name: O2 Per Protocol; Complete Time: 10:05 ms3 06/06 10:05 Order name: O2 Sat Monitoring; Complete Time: 10:05 ms3 06/06 11:10 Order name: Labs - recollect needed: green top only; Complete Time: 11:21 ss 06/06 11:36 Order name: Labs - recollect needed: chemistry lt green; Complete Time: 13:47 em1 EC:29 Rate is 83 beats/min. Rhythm is irregularly irregular. QRS [place] is Normal. Clinical ms3 impression: Atrial Fibrillation. Interpreted by me. Reviewed by me. Administered Medications: 12:04 Drug: Lasix (furosemide) 40 mg Route: IVP; Site: right forearm; kc6 13:47 Follow up: Response: No adverse reaction kc6 13:52 Drug: Aspirin 325 mg Route: PO; kc6 15:12 Follow up: Response: No adverse reaction kc6 Disposition Summary: 06/06/22 13:46 Hospitalization Ordered Hospitalization Status: Inpatient Admission ms3 Provider: Joshua Louis ms3 Location: Telemetry/MedSurg (Inpatient) ms3 Condition: Stable ms3 Problem: new ms3 Symptoms: are unchanged ms3 Bed/Room Type: Standard tn3 Room Assignment: [facility](06/06/22 16:27) ja1 Diagnosis - Heart failure, unspecified ms3 - Acute pulmonary edema ms3 - Generalized edema ms3 - Hypomagnesemia ms3 - Subsequent non-ST elevation (NSTEMI) myocardial infarction ms3 - Anemia, unspecified ms3 Forms: - Medication Reconciliation Form ms3 - SBAR form ms3 Signatures: Dispatcher [employer] EDCan [place] em1 Laura Salinas RN RN Shiela Aden RN RN Larry Chavez RN RN 1 Sukumar Clements DO DO ms3 Celina Chisholm RN RN kc6 Corrections: (The following items were deleted from the chart) 16:00 13:46 ms3 ja1 16:27 16:00 214 ja1 [facility] 19:30 13:46 Management of patient was discussed with the following: Hospitalist: . ms3 ms3
[2022-06-06] MEDS ORDERED: ASPIRIN 325 MG TAB ONE (13:53)
--- NOTE | 2022-06-06 13:55 | P.HP ---
Certification for Inpatient Patient admitted to: Inpatient With expected LOS: >2 Midnights Patient will require the following post-hospital care: None Practitioner: I am a practitioner with admitting privileges, knowledge of patient current condition, hospital course, and medical plan of care. Services: Services provided to patient in accordance with Admission requirements found in Title 42 Section 412.3 of the Code of Federal Regulations Patient History Date of Service: 06/06/22 Reason for admission: BLE edema, SOB History of Present Illness: Mr. Rios is a 71 year old male with PMH of CVA, chronic atrial fibrillation, CHF (EF 20-25%), hypertension, hyperlipidemia, and history of NSTEMI on 04/02 who was discharged was brought into the emergency department by EMS from to [facility] with complaints of lower leg swelling, and shortness of breath. Patient evaluated in the ED, patient is alert and oriented x2 with confusion. Patient is a very poor historian. It was reported by EMS that the patient's oxygen saturation was in the low 90s on room air with blood pressure of 162/109. It was also noted that patient had left lower lobe rales by EMS. Patient did report some shortness of breath with chest pain and nausea and nonproductive cough. His labs were significant for potassium of 3.3. Magnesium 1.4, Troponin 146.6, BNP 11,648. His chest x-ray demonstrated pulmonary edema. EKG showed A- fib with RVR. Patient will be admitted under care of Dr. Louis. Cardiology and pulmonology will be consulted for further evaluation. Allergies No Known Allergies Allergy (Unverified 08/14/21 14:06) Home Medications: Atorvastatin Calcium 20 mg PO BEDTIME 30 Days #30 tablet 08/15/21 Metoprolol Tartrate [Lopressor*] 50 mg PO BID 30 Days #60 tab 08/15/21 Aspirin [Aspirin EC 81 MG] 81 mg PO DAILY #30 tab 04/05/22 Atorvastatin Calcium [Lipitor] 40 mg PO BEDTIME #30 tab 04/05/22 Folic Acid 1 mg PO DAILY #30 tab 04/05/22 Amiodarone HCl [Cordarone*] 200 mg PO DAILY #30 tab 04/17/22 - Past Medical/Surgical History Diabetic: No -: HTN -: CVA -: Afib -: Noncompliance -: HLD -: alcohol abuse -: CHF -: NSTEMI Psychosocial/ Personal History: Patient confused, unclear. - Social History Alcohol use: Yes CD- Drugs: No Caffeine use: Yes Review of Systems 10-point ROS is otherwise unremarkable Respiratory: Cough, Shortness of Breath Cardiovascular: Chest Pain Gastrointestinal: Nausea Neurological: Weakness Physical Examination - Vital Signs Temperature: 97.9 F Blood Pressure: 151/100 Pulse: 91 Respirations: 14 Pulse Ox (%): 95 - Physical Exam General: Alert, Oriented x2, Confused HEENT: Atraumatic, Normocephalic, PERRLA Neck: Supple Respiratory: Diminished Cardiovascular: Normal pulses, Edema Capillary refill: <2 Seconds Gastrointestinal: Normal bowel sounds Musculoskeletal: Swelling Integumentary: No rashes Neurological: Normal tone, Sensation intact Lymphatics: No axilla or inguinal lymphadenopathy - Studies Laboratory Data (last 24 hrs) 06/06/22 13:06: Sodium 137, Potassium 3.3 L, BUN 8, Creatinine 1.01, Glucose 93, Magnesium 1.4 L*, Total Bilirubin 1.2 H, AST 15, ALT < 10 L, Alkaline Phosphatase 88 06/06/22 10:35: PT 14.6 H, INR 1.33 06/06/22 10:35: WBC 6.80, Hgb 11.3 L, Hct 34.5 L, Plt Count 310 Assessment and Plan - Plan Assessment Acute on chronic congestive heart failure Atrial fibrillation Hx Subacute CVA Hypertension Hyperlipidemia Elevated troponin Hypokalemia Hypomagnesemia Alcohol abuse Plan Acute on chronic congestive heart failure - ECHO on 04/17/22 shows EF 20-25% -Diurese with Lasix -Cardiology consulted, recommendations appreciated -Daily weight low-sodium diet -Strict I/Os Hypokalemia - IV potassium replacement and close potassium monitoring Atrial fibrillation - On telemetry, serial troponin - resume home medication when appropriate - Cardiology consulted, recommendations appreciated Hx Subacute CVA -Continue to monitor Hypertension - resume home when appropriate Hyperlipidemia - resume home statin Elevated troponin -Serial troponin -repeat EKGs, on telemetry -Cardiology consulted -Resume home meds when appropriate Hypomagnesemia -IV magnesium replacement -On telemetry History of alcohol abuse -Continue to monitor DVT PPX- Lovenox Full Code Discharge Plan: Mcfp Plan to discharge in: Greater than 2 days - Advance Directives Does patient have a Living Will: No Does patient have a Durable POA for Healthcare: No - Code Status/Comfort Care Code Status Assessed: Yes (Full code) Critical Care: No Time Spent Managing Pts Care (In Minutes): 50
[2022-06-06 15:05] LABS: SARS-CoV-2 Antigen Rapid Res Negative (Negative)
[2022-06-06] MEDS ORDERED: MAGNESIUM SULFATE 1 gm IVPB 1 GM/100 ML BAG IV ONE (16:00)
[2022-06-06] MEDS ORDERED: KCL 20 MEQ/100 mL IVPB 20 MEQ/100 ML BAG IV SCH (17:00)
[2022-06-06] MEDS: ENOXAPARIN 40 MG/0.4 ML SQ SCH (17:50)
[2022-06-06] MEDS: FUROSEMIDE 40 MG/4 ML VIAL IV SCH (17:50)
[2022-06-06 18:10] VITALS: BMI 29.1
[2022-06-06] MEDS ORDERED: NA CHLORIDE 0.9% 250 ML ONE (19:01)
[2022-06-06] MEDS: ALBUTEROL 2.5 MG/3 ML NEB SOL NEB SCH (19:05)
[2022-06-06] MEDS ORDERED: ATORVASTATIN 40 MG TAB PO SCH (21:00)
--- NOTE | 2022-06-06 21:26 | CON ---
Date of Consultation: 06/06/2022 Reason For Consultation: Congestive heart failure. History Of Present Illness: A 71-year-old male, history of congestive heart failure. Ejection fract ion is below 30%, hypertension, dyslipidemia, atrial fibrillation, coronary artery disease, and CVA, brought in from the longterm due to worsening lower extremity edema and shortness of breath and o rthopnea. Very poor historian patient, but as per the chart, oxygen saturation was as low as 91% on room air, and the patient was sent by ambulance, found to be in acute congestive heart failure, and h is EKG was atrial fibrillation with rapid ventricular response. Past Medical History: As outlined above in the HPI. Medications: Refer reconciliation sheet for detailed list. Allergies: NO KNOWN DRUG ALLERGIES. Family History: No premature coronary artery disease or cancer. Social History: Does not smoke or drink. Does not use any drugs. Review of Systems: All systems were reviewed and were negative except for mentioned in HPI. Physical Examination: Vital Signs: Reviewed. Head and Neck: Pupils are equal, reactive to light. Intact eye movements. No JVD. No cervical lym phadenopathy. Neck is supple. Thyroid is not enlarged. Lungs: Decreased breathing sounds with crackles in bases. No accessory muscle use or muscle retract ion. Heart: Regular. No extra sounds. Abdomen: Soft, nontender. Bowel sounds positive. No organomegaly. No masses or hernia. No rigidi ty or rebound. Extremities: No clubbing, cyanosis. 3+ pitting edema. Neurologic: Alert, awake with confusion. No focal deficits appreciated. Investigations: BUN 8, creatinine 1.1. Magnesium 1.4. Troponin 146. NT proBNP is 11,648. Chest x -ray, pleural effusion and CHF pattern. Assessment/recommendations: 1.Acute on chronic systolic heart failure exacerbation. Agree with Lasix 40 mg q.12 hours. Monitor BUN, creatinine, electrolytes, and replace potassium. 2.Hypomagnesemia. Replace magnesium 2 g IV and re-evaluate. 3.Dyslipidemia. Continue statin. 4.Elevated troponin. The patient is a poor historian. Able to get history. Trend 2 more sets of c ardiac enzymes and please obtain an echo. SR/MODL Voice ID: [id number] Report ID: [id number]
[2022-06-06] MEDS ORDERED: MORPHINE 2 MG/ML SYR IV PRN (22:21)
[2022-06-07] MEDS: ALBUTEROL 2.5 MG/3 ML NEB SOL NEB SCH ×2 (01:05→07:51)
[2022-06-07 03:28] LABS: Absolute Lymphocytes (CBC) 1.5 K/uL (0.7-4.9); Hematocrit 30.3 % (39.6-49.0); Lymphocytes % 25.3 % (15.3-44.8); MCV 89.3 fL (80-100); MPV 8.1 fL (7.6-11.3); RBC Red Blood Cell Count 3.39 M/uL (4.33-5.43)
[2022-06-07 03:35] LABS: Magnesium 1.5 mg/dL (1.6-2.4); Phosphorus 3.2 mg/dL (2.5-4.9); Potassium 3.5 mmol/L (3.5-5.1)
[2022-06-07] MEDS: ASPIRIN EC 81 MG TAB PO SCH (08:36)
[2022-06-07] MEDS: AMIODARONE HCL 200 MG TAB PO SCH (08:37)
[2022-06-07] MEDS: FUROSEMIDE 40 MG/4 ML VIAL IV SCH ×2 (08:37→17:21)
[2022-06-07] MEDS: ENOXAPARIN 40 MG/0.4 ML SQ SCH (08:38)
[2022-06-07] MEDS ORDERED: Magnesium Sulfate 2gm IVPB 2 G/50 ML BAG IV ONE (09:00)
[2022-06-07] MEDS ORDERED: POTASSIUM 25 MEQ EFFERV TAB PO ONE (09:00)
[2022-06-07] MEDS ORDERED: ASPIRIN EC 81 MG TAB PO SCH (09:00)
[2022-06-07] MEDS ORDERED: METOPROLOL TAR 50 MG TAB PO SCH (09:00)
--- NOTE | 2022-06-07 12:00 | P.CNS ---
Date of Consult: 06/17/22 Reason for Consult: Congestive heart failure shortness of breath Chief Complaint: BLE edema, SOB History of Present Illness: Kidney 71 years of age a poor historian he is a former history of stroke metabolic syndrome Dav artery disease brought in from [facility] [place] lower extremity edema shortness of breath altered mental status had low oxygen currently stable on oxygen diagnosed to have congestive heart failure KG showed A-fib Allergies No Known Allergies Allergy (Unverified 08/14/21 14:06) Home Medications: Atorvastatin Calcium 20 mg PO BEDTIME 30 Days #30 tablet 08/15/21 Metoprolol Tartrate [Lopressor*] 50 mg PO BID 30 Days #60 tab 08/15/21 Aspirin [Aspirin EC 81 MG] 81 mg PO DAILY #30 tab 04/05/22 Folic Acid 1 mg PO DAILY #30 tab 04/05/22 Amiodarone HCl [Cordarone*] 200 mg PO DAILY #30 tab 04/17/22 Furosemide 40 mg PO DAILY 06/06/22 Losartan Potassium 25 mg PO DAILY 06/06/22 Potassium Chloride 40 meq PO DAILY 06/06/22 cloNIDine HCL [Clonidine HCl] 0.1 mg PO Q6HR PRN 06/06/22 - Past Medical/Surgical History Diabetic: No -: HTN -: CVA -: Afib -: Noncompliance -: HLD -: alcohol abuse -: CHF -: NSTEMI -: memory deficit following cerebral infarction Psychosocial/ Personal History: Patient confused, unclear. - Social History Smoking Status: Unknown if ever smoked Alcohol use: Yes CD- Drugs: No Caffeine use: Yes Place of Residence: Detention Review of Systems is unable to be obtained Physical Examination Temp Pulse Resp BP Pulse Ox 97.0 F 111 H 18 153/91 H 98 06/07/22 08:00 06/07/22 08:37 06/07/22 08:00 06/07/22 08:37 06/07/22 04:00 General: Alert, Unresponsive Respiratory: Clear to auscultation bilaterally, Crackles/rales Cardiovascular: Normal S1 S2, Edema, Irregular heart rate/rhythm Gastrointestinal: Normal bowel sounds, Soft and benign Laboratory Data (last 24 hrs) 06/06/22 13:06: Sodium 137, Potassium 3.3 L, BUN 8, Creatinine 1.01, Glucose 93, Magnesium 1.4 L*, Total Bilirubin 1.2 H, AST 15, ALT < 10 L, Alkaline Phosphatase 88 - Problems (1) Chronic systolic heart failure Current Visit: No Status: Acute Plan: Patient is 71 years of age nonverbal metabolic syndrome history of stroke. With worsening dyspnea has bilateral pleural effusions cardiomegaly I suspect his underlying congestive heart failure patient is mildly anemic BNP is over 11,000 history of severe global hypokinesis continue with IV diuretics add spironolactone history of A-fib on amiodarone on IV Lasix prognosis poor
[2022-06-07] MEDS ORDERED: ALBUTEROL 2.5 MG/3 ML NEB SOL NEB PRN (12:02)
[2022-06-07] MEDS: SPIRONOLACTONE 25 MG TABLET PO SCH ×2 (12:38→21:42)
--- NOTE | 2022-06-07 17:35 | P.PN ---
Date of Service: 06/07/22 Subjective: no significant events overnight, feels slightly better fatigued, short of breath ROS: 10 point ROS as noted above, otherwise negative Physical exam GEN: Alert, orientedx2 , NAD HEENT: Normal conjunctiva, sclera anicteric CV: Irregularly irregular rhythm, 1+ edema Pulm: mild labored respirations on NC ABD: Soft, nontender, nondistended eeeeeeeeeeeee Neuro: Normal speech, normal affect Problem List Acute on chronic systolic congestive heart failure Atrial fibrillation , chronic Hx Subacute CVA Hypertension Hyperlipidemia Elevated troponin Hypokalemia Hypomagnesemia Alcohol abuse Acute on chronic congestive heart failure -ECHO on 04/17/22 shows EF 20-25%a -Diurese with Lasix -Cardiology consulted, recommendations appreciated -Daily weight - IV potassium replacement and close potassium monitoring -wea1n O2 as tolerated -uncertain if patient is mobile, PT consult if so
--- NOTE | 2022-06-07 19:52 | PN ---
Date of Progress Note: 06/07/2022 Subjective: Seen by bedside. Doing clinically well. He is lying flat. He has some significant low er extremity edema. No chest pain or shortness of breath, at rest now. No nausea, vomiting, or diap horesis. Review of Systems: There is no chest pain, shortness of breath, orthopnea, or cough. No nausea, vomiting, or diarrhea. All other systems reviewed and they are negative. Physical Examination: Vital Signs: Temperature is 98.7, pulse 84 to 115, breathing at 18, blood pressure is 140/97. General: Pleasant elderly male, in no apparent distress. Head and Neck: Pupils are equal, reactive to light. Intact eye movements. No JVD. No cervical lym phadenopathy. Neck is supple. Thyroid is not enlarged. Lungs: Clear to auscultation bilaterally. No rhonchi, wheezing, or crackles. No accessory muscle u se. Heart: Irregularly irregular. No extra sounds. Abdomen: Soft, nontender. Bowel sounds positive. No organomegaly. No masses or hernia. No rigidi ty or rebound. Extremities: There is no clubbing, cyanosis. 3+ pedal edema. Neurologic: Alert, awake, oriented x3. No acute focal deficits appreciated. Investigations: BUN is 9, creatinine 1.09. Troponin is 122. Assessment/recommendation: 1.Acute on chronic systolic heart failure exacerbation, improving with diuretics. Continue current management. Monitor BUN, creatinine, and electrolytes. 2.Atrial fibrillation. Rate is jumping sometimes above 100. Increase metoprolol to 100 mg twice a day and continue amiodarone. I will plan to do cardioversion on him if he continues to be in atrial fibrillation after an adjustment of medications as outlined above. The patient is not a candidate fo r anticoagulation due to GI bleed, so continue aspirin. 3.Elevated troponin. Unsure of his coronary status. The patient did not have any recent stress kandy t for coronary angiogram. This will need to be done in the near future. SR/MODL Voice ID: [id number] Report ID: [id number]
[2022-06-07] MEDS: METOPROLOL TAR 50 MG TAB PO SCH (21:42)
[2022-06-07] MEDS: ATORVASTATIN 20 MG TAB PO SCH (21:42)
[2022-06-08 05:49] LABS: Absolute Lymphocytes (CBC) 1.1 K/uL (0.7-4.9); MCV 89.8 fL (80-100); MPV 8.3 fL (7.6-11.3); RBC Red Blood Cell Count 3.56 M/uL (4.33-5.43)
[2022-06-08 06:00] LABS: Magnesium 1.9 mg/dL (1.6-2.4); Potassium 4.2 mmol/L (3.5-5.1)
[2022-06-08] MEDS: FUROSEMIDE 40 MG/4 ML VIAL IV SCH ×2 (09:18→17:58)
[2022-06-08] MEDS: AMIODARONE HCL 200 MG TAB PO SCH (09:18)
[2022-06-08] MEDS: METOPROLOL TAR 50 MG TAB PO SCH ×2 (09:18→20:57)
[2022-06-08] MEDS: ASPIRIN EC 81 MG TAB PO SCH (09:18)
[2022-06-08] MEDS: ENOXAPARIN 40 MG/0.4 ML SQ SCH (09:18)
[2022-06-08] MEDS: SPIRONOLACTONE 25 MG TABLET PO SCH ×2 (09:21→20:57)
--- NOTE | 2022-06-08 17:03 | P.PN ---
Date of Service: 06/08/22 Subjective: no significant events overnight HR more stable feels slightly improved, breathing somewhat easier/deeper ROS: 10 point ROS as noted above, otherwise negative Physical exam GEN: Alert, orientedx2 , NAD HEENT: Normal conjunctiva, sclera anicteric CV: Irregularly irregular rhythm, 1+ edema Pulm: mild labored respirations on NC ABD: Soft, nontender, nondistended Neuro: Normal speech, normal affect Problem List Acute on chronic systolic congestive heart failure Atrial fibrillation , chronic Hx Subacute CVA Hypertension Hyperlipidemia Elevated troponin Hypokalemia Hypomagnesemia Alcohol abuse Acute on chronic congestive heart failure -ECHO on 04/17/22 shows EF 20-25%a -Diurese with Lasix -Cardiology consulted - not candidate for anticoagulation, increased metoprolol to 100mg bid, continue amio -Daily weight -IV potassium replacement and close potassium monitoring -wean O2 as tolerated -uncertain if patient is mobile, PT consult if so Dispo: anticipate dc in ~1-2 days
[2022-06-08] MEDS: ATORVASTATIN 20 MG TAB PO SCH (20:57)
[2022-06-09 06:17] LABS: Magnesium 1.8 mg/dL (1.6-2.4); Potassium 3.4 mmol/L (3.5-5.1)
[2022-06-09] MEDS: ENOXAPARIN 40 MG/0.4 ML SQ SCH (08:21)
[2022-06-09] MEDS: FUROSEMIDE 40 MG/4 ML VIAL IV SCH ×2 (08:22→18:32)
[2022-06-09] MEDS: SPIRONOLACTONE 25 MG TABLET PO SCH ×2 (08:22→20:26)
[2022-06-09] MEDS: ASPIRIN EC 81 MG TAB PO SCH (08:23)
[2022-06-09] MEDS: METOPROLOL TAR 50 MG TAB PO SCH ×2 (08:23→20:27)
[2022-06-09] MEDS: AMIODARONE HCL 200 MG TAB PO SCH (08:23)
[2022-06-09] MEDS ORDERED: POTASSIUM 25 MEQ EFFERV TAB PO ONE (09:00)
[2022-06-09] MEDS ORDERED: MAGNESIUM SULFATE 1 gm IVPB 1 GM/100 ML BAG IV ONE (09:00)
--- NOTE | 2022-06-09 11:18 | RAD REPORT ---
EXAM DESCRIPTION: RAD - Chest Single View - 06/09/2022 10:39 am CLINICAL HISTORY: hypoxia, f/u pulm edema/effusions COMPARISON: Portable 06/06/2022 TECHNIQUE: AP portable chest image was obtained 06/09/2022 10:39 am . FINDINGS: Lung volumes remain low. Bilateral lung base pleural and parenchymal opacification are not clearly different from prior imaging. Heart size remains prominent. Vasculature is similar to prior imaging. No pneumothorax. No acute bony abnormality seen. No acute aortic findings suspected. IMPRESSION: Bilateral lung base opacification and bilateral suspected pleural effusions are similar to the 06/06/2022 examination.
--- NOTE | 2022-06-09 17:06 | P.PN ---
Date of Service: 06/09/22 Subjective: feeling better intermittenly off O2 supplementation no new /worsening symptoms has not ambulated ROS: 10 point ROS as noted above, otherwise negative Physical exam GEN: Alert, orientedx2 , NAD HEENT: Normal conjunctiva, sclera anicteric CV: Irregularly irregular rhythm, trace edema Pulm: mild labored respirations on NC ABD: Soft, nontender, nondistended Neuro: Normal speech, normal affect Problem List Acute on chronic systolic congestive heart failure Atrial fibrillation , chronic Hx Subacute CVA Hypertension Hyperlipidemia Elevated troponin Hypokalemia Hypomagnesemia Alcohol abuse Acute on chronic congestive heart failure -ECHO on 04/17/22 shows EF 20-25%a -Diurese with Lasix -Cardiology consulted - not candidate for anticoagulation, increased metoprolol to 100mg bid, continue amio -Daily weight -IV potassium replacement and close monitoring -wean O2 as tolerated - improving -PT consulted -overall seems to be improving, and he feels improvement Dispo: anticipate dc in ~1-2 days
[2022-06-09] MEDS: ATORVASTATIN 20 MG TAB PO SCH (20:27)
[2022-06-10 06:59] LABS: Magnesium 1.9 mg/dL (1.6-2.4); Potassium 3.1 mmol/L (3.5-5.1)
[2022-06-10] MEDS ORDERED: POTASSIUM CL SA 10 MEQ TAB PO ONE (07:32)
[2022-06-10] MEDS: ENOXAPARIN 40 MG/0.4 ML SQ SCH (08:22)
[2022-06-10] MEDS: AMIODARONE HCL 200 MG TAB PO SCH (08:23)
[2022-06-10] MEDS: FUROSEMIDE 40 MG/4 ML VIAL IV SCH (08:23)
[2022-06-10] MEDS: ASPIRIN EC 81 MG TAB PO SCH (08:23)
[2022-06-10] MEDS: SPIRONOLACTONE 25 MG TABLET PO SCH ×2 (08:23→22:22)
[2022-06-10] MEDS: METOPROLOL TAR 50 MG TAB PO SCH ×2 (08:23→22:23)
[2022-06-10] MEDS: ATORVASTATIN 20 MG TAB PO SCH (22:24)
--- NOTE | 2022-06-10 22:57 | P.PN ---
Date of Service: 06/10/22 Subjective: feeling better off O2 this morning mild confusion sitting up in chair ROS: 10 point ROS as noted above, otherwise negative Physical exam GEN: Alert, orientedx2 , NAD HEENT: Normal conjunctiva, sclera anicteric CV: Irregularly irregular rhythm, trace edema Pulm: non-labored respirations on RA ABD: Soft, nontender, nondistended Neuro: Normal speech, normal affect Problem List Acute on chronic systolic congestive heart failure Atrial fibrillation , chronic Hx Subacute CVA Hypertension Hyperlipidemia Elevated troponin Hypokalemia Hypomagnesemia Alcohol abuse Acute on chronic congestive heart failure -ECHO on 04/17/22 shows EF 20-25%a -on BID lasix, with increased bicarb, suspect contraction alkalosis, will decrease lasix -Cardiology consulted - not candidate for anticoagulation, increased metoprolol to 100mg bid, continue amio -Daily weight -IV potassium replacement and close monitoring -wean O2 as tolerated - improving -PT consulted -overall seems to be improving, and he feels improvement Dispo: anticipate dc in ~1-2 days custodial NH resident
[2022-06-11 06:12] LABS: Albumin 2.5 g/dL (3.4-5.0); Potassium 3.3 mmol/L (3.5-5.1)
[2022-06-11] MEDS ORDERED: POTASSIUM 25 MEQ EFFERV TAB PO ONE (06:36)
[2022-06-11] MEDS ORDERED: ENOXAPARIN 40 MG/0.4 ML SQ SCH (09:00)
[2022-06-11] MEDS ORDERED: FUROSEMIDE 40 MG/4 ML VIAL IV SCH (09:00)
--- NOTE | 2022-06-11 09:04 | P.DS ---
Admission Date: 06/06/22 Discharge Date: 06/11/22 Disposition: TRANSFER TO SNF Discharge Condition: FAIR Reason for Admission: BLE edema, SOB Brief History of Present Illness: Mr. Rios is a 71 year old male with PMH of CVA, chronic atrial fibrillation, CHF (EF 20-25%), hypertension, hyperlipidemia, and history of NSTEMI on 04/02 who was discharged was brought into the emergency department by EMS from to [facility] with complaints of lower leg swelling, and shortness of breath. Patient evaluated in the ED, patient is alert and oriented x2 with confusion. Patient is a very poor historian. It was reported by EMS that the patient's oxygen saturation was in the low 90s on room air with blood pressure of 162/109. It was also noted that patient had left lower lobe rales by EMS. Patient did report some shortness of breath with chest pain and nausea and nonproductive cough. His labs were significant for potassium of 3.3. Magnesium 1.4, Troponin 146.6, BNP 11,648. His chest x-ray demonstrated pulmonary edema. EKG showed A- fib with RVR. Patient was admitted for further management. Hospital Course: Diagnosis Acute on chronic systolic congestive heart failure Atrial fibrillation , chronic Hx Subacute CVA Hypertension Hyperlipidemia Elevated troponin Hypokalemia Hypomagnesemia Alcohol abuse Patient admitted to the medical floor and treated with IV Lasix twice a day for diuresis. He effectively diuresed, shortness of breath resolved. He developed contraction alkalosis which improved after decreasing the Lasix dose. -Cardiology consulted, patient considered not candidate for anticoagulation with regards to atrial fibrillation. His metoprolol dose was increased to 100mg bid and continued amiodarone. Electrolyte deficiencies were replaced. He was subsequently weaned off oxygen to room air which he tolerated with good oxygen saturation. Patient has clinically improved, his respiratory condition optimized and is deemed stable for discharge. Vital Signs/Physical Exam: Temp Pulse Resp BP Pulse Ox 97.6 F 89 16 153/93 H 96 06/11/22 08:00 06/11/22 08:00 06/11/22 08:00 06/11/22 08:00 06/11/22 08:00 General: In no apparent distress, Other (Awake and interactive) HEENT: Mucous membr. moist/pink Neck: JVD not distended Respiratory: Clear to auscultation bilaterally, Normal air movement Cardiovascular: No edema, Irregular heart rate/rhythm Gastrointestinal: Soft and benign, Non-distended, No tenderness Musculoskeletal: No swelling, No tenderness, No warmth Integumentary: No rashes, No cyanosis Laboratory Data at Discharge: WBC 5.70 K/uL (4.3-10.9) 06/08/22 05:26 Hgb 10.4 g/dL (13.6-17.9) L 06/08/22 05:26 Hct 32.0 % (39.6-49.0) L 06/08/22 05:26 Plt Count 281 K/uL (152-406) 06/08/22 05:26 PT 14.6 SECONDS (9.5-12.5) H 06/06/22 10:35 INR 1.33 06/06/22 10:35 Sodium 134 mmol/L (136-145) L 06/11/22 05:36 Potassium 3.3 mmol/L (3.5-5.1) L D 06/11/22 05:36 BUN 10 mg/dL (7-18) 06/11/22 05:36 Creatinine 1.14 mg/dL (0.70-1.30) 06/11/22 05:36 Glucose 83 mg/dL (74-106) 06/11/22 05:36 Phosphorus 3.0 mg/dL (2.5-4.9) 06/11/22 05:36 Magnesium 1.9 mg/dL (1.6-2.4) 06/10/22 06:27 Total Bilirubin 1.2 mg/dL (0.2-1.0) H 06/06/22 13:06 AST 15 U/L (15-37) 06/06/22 13:06 ALT < 10 U/L (16-61) L 06/06/22 13:06 Alkaline Phosphatase 88 U/L (45-117) 06/06/22 13:06 Triglycerides 66 mg/dL (<150) 06/07/22 03:02 Cholesterol 122 mg/dL (<200) 06/07/22 03:02 HDL Cholesterol 47 mg/dL (40-60) 06/07/22 03:02 Cholesterol/HDL Ratio 2.60 06/07/22 03:02 Home Medications: Atorvastatin Calcium 20 mg PO BEDTIME 30 Days #30 tablet 08/15/21 Aspirin [Aspirin EC 81 MG] 81 mg PO DAILY #30 tab 04/05/22 Folic Acid 1 mg PO DAILY #30 tab 04/05/22 Amiodarone HCl [Cordarone*] 200 mg PO DAILY #30 tab 04/17/22 Furosemide 40 mg PO DAILY 06/06/22 Losartan Potassium 25 mg PO DAILY 06/06/22 Metoprolol Tartrate [Lopressor*] 100 mg PO BID tab 06/11/22 Spironolactone [Aldactone*] 25 mg PO BID tab 06/11/22 Diet: AHA Activity: Fall precautions Followup: NONE,NONE [Primary Care Provider] - 1 Week (Please call to schedule an appointment. ) Time spent managing pt's care (in minutes): 35
[2022-06-11] MEDS: AMIODARONE HCL 200 MG TAB PO SCH (09:37)
[2022-06-11] MEDS: METOPROLOL TAR 50 MG TAB PO SCH (09:37)
[2022-06-11] MEDS: ASPIRIN EC 81 MG TAB PO SCH (09:38)
[2022-06-11] MEDS: SPIRONOLACTONE 25 MG TABLET PO SCH (09:38)
[2022-06-11 12:50] VITALS: TEMP 97.9
[2022-06-11 13:13] VITALS: BP 142/90
[2022-06-11 13:16] VITALS: O2SAT 95
--- NOTE | 2022-06-18 17:55 | EKG ---
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
== END 2022-06-11 15:30 | DRG 291 ==
LOC: ER 09:58 → ERHOLD 13:54 → 2ND 16:33
PROVIDERS: ADMIT Hospitalist; ATTEND Internal Medicine
DX: I11.0 Hypertensive heart disease with heart failure (principal); I50.23 Acute on chronic systolic (congestive) heart failure; I48.20 Chronic atrial fibrillation, unspecified; E83.42 Hypomagnesemia; D64.9 Anemia, unspecified; E87.6 Hypokalemia; E78.5 Hyperlipidemia, unspecified; F10.10 Alcohol abuse, uncomplicated; R77.8 Other specified abnormalities of plasma proteins; I25.2 Old myocardial infarction; Z79.82 Long term (current) use of aspirin; Z86.73 Personal history of transient ischemic attack (TIA), and cerebral infarction without residual deficits; Z79.899 Other long term (current) drug therapy; Z20.822 Contact with and (suspected) exposure to COVID-19
CPT/HCPCS: 36415; 71045; 80048; 80061; 80069; 80076; 83735; 83880; 84100; 84132; 84484; 85025; 85610; 87811; 93005; 96374; 97110; 97116; 97161; 97530; 99285; J1650; J1940; J2270; J3475; J3480; J7050; J7613; U0003

== ENCOUNTER 2024-12-15 08:19 | Inpatient (IN) | payer OTHER ==
--- OUTSIDE RECORDS SUMMARY | 2024-12-15 08:24 | XMS REPORT | Continuity of Care Document ---
Author Name Unknown Address [address] [facility] [address] [place] [address] Organization [facility] [place] Address [address] [facility] 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 Name Role Phone Gladis Tate Primary Care Physician [phone] George Castro Attending Clinician Unavailable Campaigns, Generic Provider Attending Clinician Unavailable KIMMIE MARIO Attending Clinician Unavailable Gladis Tate Attending Clinician [phone] Kiana Gibbs Attending Clinician Kyrie Carpenter Attending Clinician Unavailable GLADIS KAPOOR Attending Clinician Unavailable Lj Ortega Attending Clinician Unavailable Physician, No Primary or Family Admitting Clinic fermin Unavailable Lj Ortega Admitting Clinician Unavailable Payers Payer Name Policy Type Policy Number Effective Date Expirati on Date Source Problems Condition Name Condition Details Condition Category Status Onset Date Resolution Date Last Treatment Date Treating Clinician Comments Source Cerebrovas cular accident (CVA), unspecifie d mechanism Cerebrovas cular accident (CVA), unspecifie d mechanism Disease Active 01-03 00:00: 00 [facility] Right hand weakness Right hand weakness Disease Active 01-03 00:00: 00 [facility] Chronic atrial fibrillati on Chronic atrial fibrillati on Disease Active 01-03 00:00: 00 [facility] Essential hypertensi on Essential hypertensi on Disease Active 01-03 00:00: 00 [facility] Coronary artery disease involving [place] coronary artery of [place] heart without angina pectoris Coronary artery disease involving [place] coronary artery of [place] heart without angina pectoris Disease Active 01-03 00:00: 00 [facility] Stented coronary artery Stented coronary artery Problem Active [facility] Atrial fibrillati on Atrial fibrillati on Problem Active [facility] Hypertensi on Hypertensi on Problem Active [facility] Allergies, Adverse Reactions, Alerts Allergy Name Allergy Type Status Severity Reaction(s) Onset Date Inactive Date Treating Clinician Comments Source No Known Allergie s DA Active U 08-27 00:00: 00 [facility] NO KNOWN ALLERGIE S Drug Class Active [facility] Social History Social Habit Start Date Stop Date Quantity Comments Source History of tobacco use Cigarette Smoker [facility] Sexual orientation [facility] Alcoholic beverage intake 2024-01-04 00:00:00 2024-01-04 00:00:00 Ex-drinker (finding) [facility] Tobacco use and exposure 2024-01-02 00:00:00 2024-01-02 00:00:00 Smokeless tobacco non-user [facility] History of Social function 2024-01-02 00:00:00 2024-01-02 00:00:00 [facility] Tobacco Comment 2024-01-02 00:00:00 2024-01-02 00:00:00 Smoked x 10 years. [facility] Sex assigned at 1950 00:00:00 1950 00:00:00 [facility] Smoking Status Start Date Stop Date Source Ex-smoker 2024-01-02 00:00:00 2024-01-02 00:00:00 [facility] Never Smoker [facility] Medications Ordered Medication Name Filled Medication Name Start Date Stop Date Current Medication? Ordering Clinician Indication Dosage Frequency Signature (SIG) Comments Components Source atorvastati n 10 mg tablet 01-03 00:00: 00 Yes [id number] 10mg Take 1 tablet by mouth at bedtime. [facility] aspirin 81 mg EC tablet 01-01 14:45: 03 01-01 00:00 :00 No 81mg Take 1 tablet by mouth in the morning. [facility] amLODIPine 10 mg tablet 01-01 00:00: 00 Yes [id number] 10mg Take 1 tablet by mouth in the morning. [facility] aspirin 81 mg EC tablet 01-01 00:00: 00 Yes [id number] 81mg Take 1 tablet by mouth in the morning. [facility] amLODIPine 5 mg tablet 08-27 00:00: 00 01-01 00:00 :00 No 5mg Take 1 tablet by mouth daily. [facility] Lisinopril 20 MG Lisinopril 20 MG No 1{table t} QD Lisinopril 20 MG Apixaban 5 MG Apixaban 5 MG No BID Apixaban 5 MG Metoprolol Tartrate 50 MG Metoprolol Tartrate 50 MG No 1{table t_with_ food} BID Metoprolol Tartrate 50 MG amLODIPine Besylate 10 MG amLODIPine Besylate 10 MG No 1{table t} QD amLODIPine Besylate 10 MG Vital Signs Vital Name Observation Time Observation Value Comments S rosa elena Systolic blood pressure 2024-01-02 19:45:00 158 mm[Hg] [facility] Diastolic blood pressure 2024-01-02 19:45:00 90 mm[Hg] [facility] Heart rate 2024-01-02 18:39:00 93 /min [facility] Body temperature 2024-01-02 18:36:00 36.83 Mendy [facility] Body height 2024-01-02 18:36:00 180.3 cm [facility] Body weight 2024-01-02 18:36:00 76.658 kg [facility] BMI 2024-01-02 18:36:00 23.57 kg/m2 [facility] Oxygen saturation in Arterial blood by Pulse oximetry 2024-01-02 18:36:00 97 /min [facility] height 2021-11-06 15:30:00 76.00 [in_i] Com mon [facility] weight 2021-11-06 15:30:00 188.4 [lb_av] Co mmon [facility] temperature 2021-11-06 15:30:00 97.6 [degF] Com mon [facility] bmi 2021-11-06 15:30:00 22.93 kg/m2 Comm on [facility] oximetry 2021-11-06 15:30:00 98 % Commo n [facility] respiratory rate 2021-11-06 15:30:00 16 /min [facility] blood pressure systolic 2021-11-06 15:30:00 160 mm[Hg] [facility] blood pressure diastolic 2021-11-06 15:30:00 100 mm[Hg] [facility] Procedures Procedure Date / Time Performed Performing Clinicia n Source HB ECG ROUTINE & RHYTHM STRIP 2024-01-02 19:07:45 Gladis Kapoor [facility] [id number] 2021-08-29 00:00:00 RAS[facility] Encounters Start Date/Time End Date/Time Encounter Type Admission Type Attending Clinicians Care Facility Care Department Encounter ID Source 2022-04-16 09:18:02 Outpatient [facility]LML[facility] STL[facility]C [id number] [facility] 2021-11-28 10:15:00 Inpatient George Perkins [facility] OUTD [id number] [facility] 2021-11-06 15:24:03 Outpatient STLMLC STLMLC [id number] [facility] 2021-10-24 09:45:00 Inpatient George Perkins [facility] OUTD [id number] [facility] 2024-05-12 00:00:00 2024-05-12 11:03:01 Letter (Out) Campaigns, Generic Provider Campaigns, Generic Provider [facility] [id number] [id number] [id number] [id number] [facility] 2024-01-16 15:00:00 2024-01-16 15:00:00 Outpatient Sonali [facility] [id number] [facility] 2024-01-14 00:00:00 2024-01-16 10:09:18 Telephone Gladis Kapoor [facility] AIDA?[facility] [id number] [id number] [id number] [id number] [facility] 2024-01-16 00:00:00 2024-01-16 09:57:57 Patient Outreach Kiana Hogan, Kiana [facility]IDA?[facility] [id number] 350.1.13.10 [id number] [id number] [facility] 2024-01-14 00:00:00 2024-01-14 10:45:52 Patient Outreach Kiana Hogan [facility] AIDA?[facility] [id number] 350.1.13.10 4.2.7.2.686 [id number] [facility] 2024-01-13 13:30:00 2024-01-13 13:30:00 Outpatient KIMMIE LIN [facility] [id number] [facility] 2024-01-08 00:00:00 2024-01-08 08:51:21 Telephone Gladis Kapoor [facility]IDA?[facility] [id number] 350.1.13.10 [id number] [id number] [facility] 2024-01-07 00:00:00 2024-01-07 13:39:29 Patient Outreach [place], Kiana Hogan, Kiana [facility] AIDA?[facility] 1.2.840.114 350.1.13.10 4.2.7.2.686 [id number] [facility] 2024-01-02 14:45:00 2024-01-02 15:00:00 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 Visit 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, Gladis Anderson, Kyrie [facility] 1.2.840.114 350.1.13.10 4.2.7.2.686 [id number] [facility] 2024-01-02 13:30:00 2024-01-02 14:28:24 Outpatient R GLADIS KAPOOR [facility] [id number] [facility] 2024-01-02 13:30:00 2024-01-02 14:28:24 Office Visit Gladis Kapoor [facility] [id number] 350.1.13.10 4.2.7.2.686 [id number] [facility] 2021-11-06 00:00:00 2021-11-06 00:00:00 OFFICE VISIT NEW PT LEVEL 4 STLMLC STLMLC [id number] [facility] 2021-08-29 13:52:00 2021-08-30 13:53:00 Inpatient Lj Thomas [facility] INTE.02 [id number] [facility] 2021-08-25 08:00:00 2021-08-25 08:01:00 Outpatient Lj Thomas [facility] 3DAY [id number] [facility] Results Test Description Test Time Test Comments Results Result Co mments Source CBC W/AUTO [id number] 07:33:00* Test Item Value Reference Range Interpretation Comme nts WHITE BLOOD CELL (test code = WBC) 6.1 x10 3/uL 4.5-11.0 N RED BLOOD CELL (test code = RBC) 4.73 x10 6/uL 4.00-5.60 N HEMOGLOBIN (test code = HGB) 14.4 g/dL 12.5-16.9 N HEMATOCRIT (test code = HCT) 45.6 % 37.5-50.7 N MEAN CELL VOLUME (test code = MCV) 96.4 fL 81.0-99.0 N MEAN CELL HGB (test code = MCH) 30.4 pg 27.0-33.0 N MEAN CELL HGB CONCETRATION (test code = MCHC) 31.6 g/dL 33.0-37.0 L RED CELL DISTRIBUTION WIDTH CV (test code = RDW) 12.7 % 11.5-14.5 N RED CELL DISTRIBUTION WIDTH SD (test code = RDW-SD) 46.0 fL 37.0-54.0 N PLATELET COUNT (test code = PLT) 251 x10 3/uL 150-400 N MEAN PLATELET VOLUME (test c ode = MPV) 10.6 fL 7.0-9.0 H NEUTROPHIL % (test code = NT%) 64.1 % 56.0-77.0 N IMMATURE GRANULOCYTE % (test code = IG%) 0.2 % 0.0-2.0 N LYMPHOCYTE % (test code = LY%) 20.8 % 14.0-32.0 N MONOCYTE % (test code = MO%) 14.6 % 4.8-9.0 H EOSINOPHIL % (test code = EO%) 0.0 % 0.3-3.7 L BASOPHIL % (test code = BA%) 0.3 % 0.0-2.0 N NUCLEATED RBC % (test code = NRBC%) 0.0 % 0-0 N NEUTROPHIL # (test code = NT#) 3.91 x10 3/uL 2.0-7.6 N IMMATURE GRANULOCYTE # (test code = IG#) 0.01 x10 3/uL 0.00-0.03 N LYMPHOCYTE # (test code = LY#) 1.27 x10 3/uL 1.0-3.8 N MONOCYTE # (test code = MO#) 0.89 x10 3/uL 0.1-0.8 H EOSINOPHIL # (test code = EO#) 0.00 x10 3/uL 0.0-0.2 N BASOPHIL # (test code = BA#) 0.02 x10 3/uL 0.0-0.2 N NUCLEATED RBC # (test code = NRBC#) 0.00 x10 3/uL 0.0-0.1 N MANUAL DIFF REQUIRED (test c ode = MDIFF) NO GLUCOSE [id number] 20:44:00* Test Item Value Reference Range Interpretation Comme [facility] GLUCOSE BEDSIDE (test code = GLUBED) 132 MG/DL 70-110 H Performed by cer tified bag press operator at [facility] [id number] 12:41:00* Test Item Value Reference Range Interpretation Comme nts ACT-ISTAT (test code = ACTI) 327 SEC 74-137 H Performed by cer tified bag press operator at [facility] - XR CHEST 1 [id number] 00:00:00 [facility] 1950 Sex: M FAX: George Ramires MD [phone] [place]: St: [facility] FAX: Vincent Shoemaker [phone] Name: BERNARDA RIOS [facility] [place] : 1950 Age/S: 71/M [address] [place] [address] Blvd Unit #: [id number] Loc: [place] [address] Phys: Vincent Shoemaker Acct: [id number] Dis Date: Status: ADM IN PHONE #: [phone] Exam Date: 08/29/2021 1511 FAX #: [phone] Reason: WATCHMAN EXAMS:CPT CODE: [id number] XR CHEST 1 V 33660 PROCEDURE INFORMATION: Exam: XR Chest Exam date and time: 08/29/2021 2:16 PM Age: 71 years old Clinical indication: Device placement; Other: Watchman TECHNIQUE: Imaging protocol: XR of the chest. Views: 1 view. COMPARISON: DX XR CHEST 2 V 08/27/2021 5:18 PM FIN DINGS: Lungs: Mild decreased lung volumes. No consolidation. Pleural spaces: Unremarkable. No pleural effusion. No pneumothorax. Heart/Mediastinum: Cardiomegaly, unchanged. Vasculature is unremarkable. Bones/joints: Unremarkable. IMPRESSION: No acute cardiopulmonary findings. at 2217 Reported and signed by: Jovanny Lambert M.D. CC: George Castro MD; Vincent Shoemaker Technologist: RT Sameera(Sonali) Trnkenzie Date/Time/By: 08/29/2021 (6917) : By: [email or web address] Orig Print D/T: S: 08/29/2021 (0988) PAGE 1 Signed ReportNovel Coronavirus 2019 [id number] 02:32:00* Test Item Value Reference Range Interpretation Comme nts Novel Coronavirus 2019 Inhouse (test code = COVNONPUI) Negative Negative Positive resul ts are indicative of the presence [id number]-8 RNA, clinical correlation with patient historyand other diagnostic information is necessary to determinepatient infection status. Positive results do not rule outbacterial infection or co-infection with other viruses. Negative results do not preclude SARS-CoV-2 infection andshould not be used as the sole basis for patient managementdecisions. Negative results must be combined with otherclinical observations, patient history, and epidemiologicalinformation . Detection of SARS-CoV-2 RNA may be affected bysample collection methods, storage conditions, and/or stageof infection. Viral RNA mutations, vaccinations, antiviraltherapeutics, antibiotics, chemotherapeutic orimmunosuppressant drugs have not been evaluated for effectson detection. Results are for the identification of SARS-CoV-2 RNA usingreal-time (RT) polymerase chain reaction (PCR) technologyfor the qualitative detection of nucleic acids from yzeNAHL-DuB-6 virus and diagnosis of SARS-CoV-2 virusinfection. It is an Emergency Use Authorization (EUA) testauthorized by the U.S. FDA. BASIC METABOLIC [id number] 17:01:00* Test Item Value Reference Range Interpretation Comme nts SODIUM (test code = NA) 140 mEq/L 134-147 N POTASSIUM (test code = K) 4.2 mEq/L 3.4-5.0 N CHLORIDE (test code = CL) 104 mEq/L 100-108 N CARBON DIOXIDE (test code = CO2) 32 mEq/l 21-33 N ANION GAP (test code = GAP) 9 0-20 N GLUCOSE (test code = GLU) 99 mg/dL 70-110 N BLOOD UREA NITROGEN (test code = BUN) 9 mg/dL 7-18 N GLOMERULAR FILTRATION RATE (test code = GFR) 66.0 70-80 L Units of measure = ml/min/1.73 m2 CREATININE (test code = CREAT) 1.1 mg/dL 0.6-1.3 N CALCIUM (test code = CA) 9.7 mg/dL 8.0-10.5 N [id number] 17:01:00* Test Item Value Reference Range Interpretation Comme nts PREALBUMIN (test code = PREALB) 16.4 mg/dL 16.0-40.0 N PROTHROMBIN [id number] 16:54:00* Test Item Value Reference Range Interpretation Comme nts PROTHROMBIN TIME PATIENT (test code = PTP) 14.2 SECONDS 9.3-12.9 H INTERNATIONAL NORMAL RATIO (test code = INR) 1.3 0.8-1.2 H TARGET INR BY INDICATION Indication INR1. Prophylaxis of venous thrombosis 2.0 - 3.0 (orthopedic surgery), Prophylaxis of venous thrombosis (other than high-risk surgery), Treatment of Deep Vein Thrombosis/Pulmonary Embolism, Prevention of systemic embolism - Tissue heart valves, Acute Myocardial Infarction (to prevent systemic embolism), Valvular heart disease, Atrial Fibrillation, Bileaflet mechanical valve in aortic position.2. Mechanical prosthetic valves (high risk), 2.5 - 3.5 Presence of Lupus Anticoagulant or Antiphospholipid Antibodies, Prevention of systemic embolism - Acute Myocardial Infarction (to prevent recurrent infarct). CBC W/AUTO [id number] 16:39:00* Test Item Value Reference Range Interpretation Comme nts WHITE BLOOD CELL (test code = WBC) 4.8 x10 3/uL 4.5-11.0 N RED BLOOD CELL (test code = RBC) 5.50 x10 6/uL 4.00-5.60 N HEMOGLOBIN (test code = HGB) 17.2 g/dL 12.5-16.9 H HEMATOCRIT (test code = HCT) 53.4 % 37.5-50.7 H MEAN CELL VOLUME (test code = MCV) 97.1 fL 81.0-99.0 N MEAN CELL HGB (test code = MCH) 31.3 pg 27.0-33.0 N MEAN CELL HGB CONCETRATION (test code = MCHC) 32.2 g/dL 33.0-37.0 L RED CELL DISTRIBUTION WIDTH CV (test code = RDW) 12.9 % 11.5-14.5 N RED CELL DISTRIBUTION WIDTH SD (test code = RDW-SD) 46.1 fL 37.0-54.0 N PLATELET COUNT (test code = PLT) 253 x10 3/uL 150-400 N MEAN PLATELET VOLUME (test c ode = MPV) 9.9 fL 7.0-9.0 H NEUTROPHIL % (test code = NT%) 49.5 % 56.0-77.0 L IMMATURE GRANULOCYTE % (test code = IG%) 0.2 % 0.0-2.0 N LYMPHOCYTE % (test code = LY%) 35.7 % 14.0-32.0 H MONOCYTE % (test code = MO%) 13.2 % 4.8-9.0 H EOSINOPHIL % (test code = EO%) 0.4 % 0.3-3.7 N BASOPHIL % (test code = BA%) 1.0 % 0.0-2.0 N NUCLEATED RBC % (test code = NRBC%) 0.0 % 0-0 N NEUTROPHIL # (test code = NT#) 2.37 x10 3/uL 2.0-7.6 N IMMATURE GRANULOCYTE # (test code = IG#) 0.01 x10 3/uL 0.00-0.03 N LYMPHOCYTE # (test code = LY#) 1.71 x10 3/uL 1.0-3.8 N MONOCYTE # (test code = MO#) 0.63 x10 3/uL 0.1-0.8 N EOSINOPHIL # (test code = EO#) 0.02 x10 3/uL 0.0-0.2 N BASOPHIL # (test code = BA#) 0.05 x10 3/uL 0.0-0.2 N NUCLEATED RBC # (test code = NRBC#) 0.00 x10 3/uL 0.0-0.1 N MANUAL DIFF REQUIRED (test c ode = MDIFF) NO - XR CHEST 2 [id number] 00:00:00 [facility] [place] [place] : 1950 Sex: M FAX: George Ramires MD [phone] [place]: [address]: PRE Name: BERNARDA RIOS [facility] [place] العلي : 1950 Age/S: 71/M [address] [place] [address] Blvd Unit #: [id number] Loc: [place] [address] Phys: George Castro MD Acct: [id number] Dis Date: Status: PRE SDC PHONE #: [phone] Exam Date: 2021 1725 FAX #: [phone] Reason: PREOP EXAMS: CPT CODE: [id number] XR CHEST 2 V [id number] PROCEDURE INFORMATION: Exam: XR Chest Exam date and time: 08/27/2021 5:18 PM Age: 71 years old Clinical indication: Screening exam; Pre-operative exam; Cardiovascular screening; Additional info: Preop TECHNIQUE: Imaging protocol: XR of the chest. Views: 2 views. PA and Lateral COMPARISON: No relevant prior studies available. FINDINGS: Lungs: The lungs are clear. Pleural spaces: No pleural effusion. No pneumothorax. Heart/Mediastinum: Cardiomediastinal silhouette is enlarged. Bones/joints: No acute bony finding. IMPRESSION: No acute or active pulmonary findings. at 6036 Reported and signed by: Espinoza Berrios M.D. CC: George Castro MD Technologist: RT Rashmi(Sonali) Trnscrd Date/Time/By: 08/27/2021 (528) : By: [email or web address] Orig Print D/T: S: 08/27/2021 (0432) PAGE 1 Signed Report Notes Date/Time Note Provider Source 2024-01-16 09:22:09 Done. [facility] 2024-01-14 15:06:03 Referral pending please review. Alma Perez RN [facility] 2024-01-14 14:59:28 Patient still needing RODOLFO referral for cardiology. Please advise. Bekah Hu [facility] 2024-01-02 14:45:00 Images from the original note were not included. Venipuncture collection performed by clean technique on the left anticubitus. Total of 1 attempts were made. Slight pressure and a bandage/dressing were applied to the site(s). The patient experienced no complications. The following specimens were processed according to instructions and sent to [facility] laboratories per lab order on 01/02/2024 : LT BLUE SST 2 RED LAV 2 PPT DK GREEN (LiHep) DK GREEN (SodH) MURPHY DK BLUE (K2) DK BLUE (S) ACD Blood Culture NIPT/NTD [facility] 2021-08-30 10:44:00 [facility] ([facility]) History Physical - Adult REPORT#:[id number] REPORT STATUS: Signed DATE:08/30/21 TIME: 1043 PATIENT: BERNARDA RIOS UNIT #: [id number] ROOM/BED: [place] [address] : [birth year] AGE: 71 SEX: M ATTEND: Lj Ortega MD ADM AUTHOR: Radha Retana * ALL edits or amendments must be made on the electronic/computer document * History of Present Illness HPI Chief complaint: No complaint PCP: PCP: No Primary or Family Physician HPI: 71 YO with PMH afib, CHF, TIA, HTN, carotid artery stenosis, peripheral arterial disease, lifelong smoker who is not a candidate for chronic anticoagulation. He is admitted electively and underwent LAAO with Watchman device. He is observed overnight in CV1 and did well. Informant/historian: family/other at bedside, prior records History Past medical history: Reports: Atrial fibrillation, Congestive heart failure, Hypertension, Transient ischemic attack, Anticoagulant therapy, Periph arterial disease. Denies: Coronary artery disease, Diabetes mellitus. Drug use: Denies recreational drugs Smoking status: Smoking status for patients 13 years old or older: Former Smoker Years smoked: 3 Pack years: 0 Medication/Allergy-Vaccine Hx Medications: Home Medications: Medication Dose/Rte/Freq Days Qty Entered Last Max Daily Dose Reviewed LISINOPRIL (ZESTRIL) 20 MG PO DAILY 08/27/21 08/29/21 Strength: 20 MG TAB 1650 0936 METOPROLOL TARTRATE 50 MG PO BID 08/27/21 08/29/21 (LOPRESSOR) 1650 0936 Strength: 50 MG TAB amLODIPine (NORVASC) 10 MG PO DAILY 08/27/21 08/29/21 Strength: 10 MG TAB 1651 0936 APIXABAN (ELIQUIS) 5 MG PO BID 08/27/21 08/29/21 Strength: 5 MG TAB 1651 0936 Current Hospital Medications: Anti-Infective Agents Sig/Solitario Start time Last Medication Dose Route Stop Time Status Admin Cefazolin Sodium 0 .STK-MED ONE 08/29 1126 DC 08/29 (KEFZOL OR ANCEF) .ROUTE 1239 Autonomic Drugs Sig/Solitario Start time Last Medication Dose Route Stop Time Status Admin Glycopyrrolate 0 .STK-MED ONE 08/29 1157 DC (GLYCOPYRROLATE) .ROUTE Neostigmine 0 .STK-MED ONE 08/29 1157 DC Methylsulfate .ROUTE (PROSTIGMIN) Rocuronium [place] 0 .STK-MED ONE 08/29 1157 DC (ZEMURON) IV Norepinephrine 0 .STK-MED ONE 08/29 1146 DC Bitartrate IV (LEVOPHED BITARTATE) Blood Formation,Coagulation Sig/Solitario Start time Last Medication Dose Route Stop Time Status Admin Apixaban 5 MG BID 08/29 2100 AC 08/30 (ELIQUIS 5MG TABLET) PO 09/28 2058 0934 Heparin Sodium 0 .STK-MED ONE 08/29 1157 DC (HEPARIN SODIUM) .ROUTE Heparin Sodium 0 .STK-MED ONE 08/29 1121 DC 08/29 (HEPARIN SODIUM) .ROUTE 1239 Heparin Sodium/ 2,000 ML .STK-MED ONE 08/29 1121 DC 08/29 Sodium Chloride IV 1239 (HEPARIN 2,000 UNITS/ NS 1,000mL) Cardiovascular Drugs Sig/Solitario Start time Last Medication Dose Route Stop Time Status Admin Amlodipine Besylate 10 MG DAILY 08/30 0900 AC 08/30 (NORVASC) PO 09/29 0859 1022 Lisinopril 20 MG DAILY 08/30 0900 AC 08/30 (ZESTRIL) PO 09/29 0859 0939 Metoprolol Tartrate 50 MG BID 08/29 2100 AC 08/30 (LOPRESSOR) PO 09/28 2058 0934 Central Nervous System Agents Sig/Solitario Start time Last Medication Dose Route Stop Time Status Admin Fentanyl Citrate 0 .STK-MED ONE 08/29 1156 DC (SUBLIMAZE) .ROUTE Electrolytic, Caloric, And Saúl Sig/Solitario Start time Last Medication Dose Route Stop Time Status Admin Sodium Chloride 5 ML ASDIR PRN 08/29 1400 AC (SODIUM CHLORIDE) IV 09/28 1359 Sodium Chloride 10 ML ASDIR PRN 08/29 1400 AC (SODIUM CHLORIDE) IV 09/28 1359 Sodium Chloride 250 ML ASDIR PRN 08/29 1400 AC (SODIUM CHLORIDE IV 09/28 1359 0.9%) Eye, Ear, Nose And Throat (Een Sig/Solitario Start time Last Medication Dose Route Stop Time Status Admin Dexamethasone Sodium 0 .STK-MED ONE 08/29 1157 DC Phosphate .ROUTE (DECADRON) Gastrointestinal Drugs Sig/Solitario Start time Last Medication Dose Route Stop Time Status Admin Ondansetron HCl 0 .STK-MED ONE 08/29 1157 DC (ZOFRAN) .ROUTE Local Anesthetics (Parenteral) Sig/Solitario Start time Last Medication Dose Route Stop Time Status Admin Bupivacaine HCl 0 .STK-MED ONE 08/29 1124 DC 08/29 (MARCAINE 0.5%) .ROUTE 1239 Miscellaneous Therapeutic Agen Sig/Solitario Start time Last Medication Dose Route Stop Time Status Admin Sugammadex Sodium 0 .STK-MED ONE 08/29 1313 DC (BRIDION) IV Allergies: Coded Allergies: No Known Allergies (08/27/21) Review of Systems Constitutional: Denies: generalized weakness. Respiratory: Denies: SOB. Cardiovascular: Denies: chest pain, palpitations, parox nocturnal dyspnea. GI: Denies: abdominal pain, nausea, vomiting. Neuro: Denies: weakness. Psych: Denies: agitation, anxiety. Physical Exam VS/I O Vital Signs: Date Time Temp Pulse Resp B/P B/P Pulse O2 O2 Flow FiO2 Mean Ox Delivery Rate 08/30 0840 36.9 85 14 151/92 0.0 91 08/30 0601 36.9 99 20 134/92 0.0 95 Room air 08/30 0600 98 23 134/92 110 95 08/30 0500 81 19 100 08/30 0400 73 20 135/92 109 97 08/30 0300 82 19 135/83 102 99 08/30 0200 80 16 119/87 99 98 08/30 0100 74 16 112/83 94 97 08/30 0017 36.9 76 16 94 Room air 08/30 0016 83 22 141/86 106 97 08/30 0000 76 13 127/84 99 96 08/29 2100 99 22 137/103 116 97 08/29 2034 36.8 98 16 130/94 0.0 100 Room air 24 hour I O ending at 0700: 08/30 0700 08/29 1900 Intake Total Output Total Balance Patient 86.364 kg Weight Weight Stated/Reported Measurement Method PATIENT WEIGHT: Weight (lb): 190 Weight (oz): 6.4 Weight (kg): 86.364 General appearance: alert, awake, oriented, no acute distress, pleasant, conversational Neck: full range of motion, non-tender, no JVD Cardiovascular: irregularly irregular Respiratory: clear to auscultation, no distress, no tenderness, aerating well, symmetric expansion Abdomen/GI: active bowel sounds, soft, non-tender, no guarding, no rebound Extremities: moves all, no edema-all extremities Musculoskeletal: full range of motion, normal inspection Neuro/WINDSCREEN FITTER: alert, oriented X 3, normal speech Skin: dry, intact, normal color Psychiatry: no hallucinations, normal affect, normal judgment/insight, normal mood Results Findings/Data: Laboratory Tests: 08/30 08/29 08/29 0425 2033 1231 Chemistry Sodium (134 - 147 mEq/L) 140 Potassium (3.4 - 5.0 mEq/L) 4.8 Chloride (100 - 108 mEq/L) 104 Carbon Dioxide (21 - 33 mEq/l) 31 Anion Gap (0 - 20) 10 BUN (7 - 18 mg/dL) 15 Creatinine (0.6 - 1.3 mg/dL) 1.2 Glomerular Filtr Rate (70 - 80) 59.7 L Glucose (70 - 110 mg/dL) 96 POC Glucose (70 - 110 MG/DL) 132 H Calcium (8.0 - 10.5 mg/dL) 9.2 Coagulation Activated Coag Time (74 - 137 SEC) 327 H Hematology WBC (4.5 - 11.0 x10 3/uL) 6.1 RBC (4.00 - 5.60 x10 6/uL) 4.73 Hgb (12.5 - 16.9 g/dL) 14.4 Hct (37.5 - 50.7 %) 45.6 MCV (81.0 - 99.0 fL) 96.4 MCH (27.0 - 33.0 pg) 30.4 MCHC (33.0 - 37.0 g/dL) 31.6 L RDW (11.5 - 14.5 %) 12.7 Plt Count (150 - 400 x10 3/uL) 251 MPV (7.0 - 9.0 fL) 10.6 H Neut % (Auto) (56.0 - 77.0 %) 64.1 Lymph % (Auto) (14.0 - 32.0 %) 20.8 Pepin % (Auto) (4.8 - 9.0 %) 14.6 H Eos % (Auto) (0.3 - 3.7 %) 0.0 L Baso % (Auto) (0.0 - 2.0 %) 0.3 Neut # (Auto) (2.0 - 7.6 x10 3/uL) 3.91 Lymph # (Auto) (1.0 - 3.8 x10 3/uL) 1.27 Pepin # (Auto) (0.1 - 0.8 x10 3/uL) 0.89 H Eos # (Auto) (0.0 - 0.2 x10 3/uL) 0.00 Baso # (Auto) (0.0 - 0.2 x10 3/uL) 0.02 Abs Immat Gran (auto) (0.00 - 0.03 x10 3/uL) 0.01 Add Manual Diff NO Immature Gran % (0.0 - 2.0 %) 0.2 Nucleated RBC % (0 - 0 %) 0.0 Nucleated RBCs # (Man) (0.0 - 0.1 x10 3/uL) 0.00 Cardiology imaging: Echo Left ventricle: The cavity size is normal. Wall thickness is increased. The estimated ejection fraction is 35-39%. No pericardial effusion. Radiology data: Recent Impressions: RADIOLOGY - XR CHEST 1 V 08/29 1511 Report Impression - Status: SIGNED Entered: 08/29/2021 1541 IMPRESSION: No acute cardiopulmonary findings. Impression By: [email or web address] - Jovanny Lambert M.D. Results: labs reviewed Diagnosis, Assessment Plan Plan discussed with: patient, spouse/partner, nurse Free Text DxA P Notes Free Text DxA P Notes: 71 YO with PMH afib, CHF, TIA, HTN, carotid artery stenosis, peripheral arterial disease, lifelong smoker who is not a candidate for chronic anticoagulation. He is admitted electively and underwent LAAO with Watchman device. He is observed overnight in CV1 and did well. Assessment: 1. Atrial fibrillation s/p LAAO with watchman device 2. Chronic systolic and diastolic CHF - LVEF 35-39% 3. Hypertension 4. PAD Plan: 1. Continue Eliquis 5 mg BID, DOMINIQUE in 6 weeks to confirm occlusion of LAP, then will DC AC 2. continue HF medications: BB and ACEI 3. Recommend stopping amlodipine due to HFrEF but will defer this to his primary route sales associate 4. post procedure echo reviewed by Dr. Ortega - on pericardial effusion 5. EP [employer] to DC right groin 8 figure suture 6. Okay to DC home and outpatient FU with Dr. Castro Quality: [facility] [place] VTE Prophylaxis VTE prophylaxis initiated: yes (on Eliquis), no mechanical, reason: at 1104 RPT #:[id number] END OF REPORT [facility] 2021-08-30 10:44:00 [facility] ([facility]) History Physical - Adult REPORT#:[id number] REPORT STATUS: Signed DATE:08/30/21 TIME: 1044 PATIENT: BERNARDA RIOS UNIT #: [id number] ROOM/BED: 3397-1 : 50 AGE: 71 SEX: M ATTEND: Lj Ortega MD ADM AUTHOR: Radha Retana * ALL edits or amendments must be made on the electronic/computer document * History of Present Illness HPI Chief complaint: No complaint PCP: PCP: No Primary or Family Physician HPI: 71 YO with PMH afib, CHF, TIA, HTN, carotid artery stenosis, peripheral arterial disease, lifelong smoker who is not a candidate for chronic anticoagulation. He is admitted electively and underwent LAAO with Watchman device. He is observed overnight in CV1 and did well. Informant/historian: family/other at bedside, prior records History Past medical history: Reports: Atrial fibrillation, Congestive heart failure, Hypertension, Transient ischemic attack, Anticoagulant therapy, Periph arterial disease. Denies: Coronary artery disease, Diabetes mellitus. Drug use: Denies recreational drugs Smoking status: Smoking status for patients 13 years old or older: Former Smoker Years smoked: 3 Pack years: 0 Medication/Allergy-Vaccine Hx Medications: Home Medications: Medication Dose/Rte/Freq Days Qty Entered Last Max Daily Dose Reviewed LISINOPRIL (ZESTRIL) 20 MG PO DAILY 08/27/21 08/29/21 Strength: 20 MG TAB 1650 0936 METOPROLOL TARTRATE 50 MG PO BID 08/27/21 08/29/21 (LOPRESSOR) 1650 0936 Strength: 50 MG TAB amLODIPine (NORVASC) 10 MG PO DAILY 08/27/21 08/29/21 Strength: 10 MG TAB 1651 0936 APIXABAN (ELIQUIS) 5 MG PO BID 08/27/21 08/29/21 Strength: 5 MG TAB 1651 0936 Current Hospital Medications: Anti-Infective Agents Sig/Solitario Start time Last Medication Dose Route Stop Time Status Admin Cefazolin Sodium 0 .STK-MED ONE 08/29 1126 DC 08/29 (KEFZOL OR ANCEF) .ROUTE 1239 Autonomic Drugs Sig/Solitario Start time Last Medication Dose Route Stop Time Status Admin Glycopyrrolate 0 .STK-MED ONE 08/29 1157 DC (GLYCOPYRROLATE) .ROUTE Neostigmine 0 .STK-MED ONE 08/29 1157 DC Methylsulfate .ROUTE (PROSTIGMIN) Rocuronium [place] 0 .STK-MED ONE 08/29 1157 DC (ZEMURON) IV Norepinephrine 0 .STK-MED ONE 08/29 1146 DC Bitartrate IV (LEVOPHED BITARTATE) Blood Formation,Coagulation Sig/Solitario Start time Last Medication Dose Route Stop Time Status Admin Apixaban 5 MG BID 08/29 2100 AC 08/30 (ELIQUIS 5MG TABLET) PO 09/28 2058 0934 Heparin Sodium 0 .STK-MED ONE 08/29 1157 DC (HEPARIN SODIUM) .ROUTE Heparin Sodium 0 .STK-MED ONE 08/29 1121 DC 08/29 (HEPARIN SODIUM) .ROUTE 1239 Heparin Sodium/ 2,000 ML .STK-MED ONE 08/29 1121 DC 08/29 Sodium Chloride IV 123 (HEPARIN 2,000 UNITS/ NS 1,000mL) Cardiovascular Drugs Sig/Solitario Start time Last Medication Dose Route Stop Time Status Admin Amlodipine Besylate 10 MG DAILY 08/30 0900 AC 08/30 (NORVASC) PO 09/29 0859 1022 Lisinopril 20 MG DAILY 08/30 0900 AC 08/30 (ZESTRIL) PO 09/29 0859 0939 Metoprolol Tartrate 50 MG BID 08/29 2100 AC 08/30 (LOPRESSOR) PO 09/28 2058 0934 Central Nervous System Agents Sig/Solitario Start time Last Medication Dose Route Stop Time Status Admin Fentanyl Citrate 0 .STK-MED ONE 08/29 1156 DC (SUBLIMAZE) .ROUTE Electrolytic, Caloric, And Saúl Sig/Solitario Start time Last Medication Dose Route Stop Time Status Admin Sodium Chloride 5 ML ASDIR PRN 08/29 1400 AC (SODIUM CHLORIDE) IV 09/28 1359 Sodium Chloride 10 ML ASDIR PRN 08/29 1400 AC (SODIUM CHLORIDE) IV 09/28 1359 Sodium Chloride 250 ML ASDIR PRN 08/29 1400 AC (SODIUM CHLORIDE IV 09/28 1359 0.9%) Eye, Ear, Nose And Throat (Een Sig/Solitario Start time Last Medication Dose Route Stop Time Status Admin Dexamethasone Sodium 0 .STK-MED ONE 08/29 1157 DC Phosphate .ROUTE (DECADRON) Gastrointestinal Drugs Sig/Solitario Start time Last Medication Dose Route Stop Time Status Admin Ondansetron HCl 0 .STK-MED ONE 08/29 1157 DC (ZOFRAN) .ROUTE Local Anesthetics (Parenteral) Sig/Solitario Start time Last Medication Dose Route Stop Time Status Admin Bupivacaine HCl 0 .STK-MED ONE 08/29 1124 DC 08/29 (MARCAINE 0.5%) .ROUTE 1239 Miscellaneous Therapeutic Agen Sig/Solitario Start time Last Medication Dose Route Stop Time Status Admin Sugammadex Sodium 0 .STK-MED ONE 08/29 1313 DC (BRIDION) IV Allergies: Coded Allergies: No Known Allergies (08/27/21) Review of Systems Constitutional: Denies: generalized weakness. Respiratory: Denies: SOB. Cardiovascular: Denies: chest pain, palpitations, parox nocturnal dyspnea. GI: Denies: abdominal pain, nausea, vomiting. Neuro: Denies: weakness. Psych: Denies: agitation, anxiety. Physical Exam VS/I O Vital Signs: Date Time Temp Pulse Resp B/P B/P Pulse O2 O2 Flow FiO2 Mean Ox Delivery Rate 08/30 0840 36.9 85 14 151/92 0.0 91 08/30 0601 36.9 99 20 134/92 0.0 95 Room air 08/30 0600 98 23 134/92 110 95 08/30 0500 81 19 100 08/30 0400 73 20 135/92 109 97 08/30 0300 82 19 135/83 102 99 08/30 0200 80 16 119/87 99 98 08/30 0100 74 16 112/83 94 97 08/30 0017 36.9 76 16 94 Room air 08/30 0016 83 22 141/86 106 97 08/30 0000 76 13 127/84 99 96 08/29 2100 99 22 137/103 116 97 08/29 2034 36.8 98 16 130/94 0.0 100 Room air 24 hour I O ending at 0700: 08/30 0700 08/29 1900 Intake Total Output Total Balance Patient 86.364 kg Weight Weight Stated/Reported Measurement Method PATIENT WEIGHT: Weight (lb): 190 Weight (oz): 6.4 Weight (kg): 86.364 General appearance: alert, awake, oriented, no acute distress, pleasant, conversational Neck: full range of motion, non-tender, no JVD Cardiovascular: irregularly irregular Respiratory: clear to auscultation, no distress, no tenderness, aerating well, symmetric expansion Abdomen/GI: active bowel sounds, soft, non-tender, no guarding, no rebound Extremities: moves all, no edema-all extremities Musculoskeletal: full range of motion, normal inspection Neuro/WINDSCREEN FITTER: alert, oriented X 3, normal speech Skin: dry, intact, normal color Psychiatry: no hallucinations, normal affect, normal judgment/insight, normal mood Results Findings/Data: Laboratory Tests: 08/30 08/29 08/29 0425 2033 1231 Chemistry Sodium (134 - 147 mEq/L) 140 Potassium (3.4 - 5.0 mEq/L) 4.8 Chloride (100 - 108 mEq/L) 104 Carbon Dioxide (21 - 33 mEq/l) 31 Anion Gap (0 - 20) 10 BUN (7 - 18 mg/dL) 15 Creatinine (0.6 - 1.3 mg/dL) 1.2 Glomerular Filtr Rate (70 - 80) 59.7 L Glucose (70 - 110 mg/dL) 96 POC Glucose (70 - 110 MG/DL) 132 H Calcium (8.0 - 10.5 mg/dL) 9.2 Coagulation Activated Coag Time (74 - 137 SEC) 327 H Hematology WBC (4.5 - 11.0 x10 3/uL) 6.1 RBC (4.00 - 5.60 x10 6/uL) 4.73 Hgb (12.5 - 16.9 g/dL) 14.4 Hct (37.5 - 50.7 %) 45.6 MCV (81.0 - 99.0 fL) 96.4 MCH (27.0 - 33.0 pg) 30.4 MCHC (33.0 - 37.0 g/dL) 31.6 L RDW (11.5 - 14.5 %) 12.7 Plt Count (150 - 400 x10 3/uL) 251 MPV (7.0 - 9.0 fL) 10.6 H Neut % (Auto) (56.0 - 77.0 %) 64.1 Lymph % (Auto) (14.0 - 32.0 %) 20.8 Pepin % (Auto) (4.8 - 9.0 %) 14.6 H Eos % (Auto) (0.3 - 3.7 %) 0.0 L Baso % (Auto) (0.0 - 2.0 %) 0.3 Neut # (Auto) (2.0 - 7.6 x10 3/uL) 3.91 Lymph # (Auto) (1.0 - 3.8 x10 3/uL) 1.27 Pepin # (Auto) (0.1 - 0.8 x10 3/uL) 0.89 H Eos # (Auto) (0.0 - 0.2 x10 3/uL) 0.00 Baso # (Auto) (0.0 - 0.2 x10 3/uL) 0.02 Abs Immat Gran (auto) (0.00 - 0.03 x10 3/uL) 0.01 Add Manual Diff NO Immature Gran % (0.0 - 2.0 %) 0.2 Nucleated RBC % (0 - 0 %) 0.0 Nucleated RBCs # (Man) (0.0 - 0.1 x10 3/uL) 0.00 Cardiology imaging: Echo Left ventricle: The cavity size is normal. Wall thickness is increased. The estimated ejection fraction is 35-39%. No pericardial effusion. Radiology data: Recent Impressions: RADIOLOGY - XR CHEST 1 V 08/29 1511 Report Impression - Status: SIGNED Entered: 08/29/2021 4095 IMPRESSION: No acute cardiopulmonary findings. Impression By: [email or web address] - Jovanny Lambert M.D. Results: labs reviewed Diagnosis, Assessment Plan Plan discussed with: patient, spouse/partner, nurse Free Text DxA P Notes Free Text DxA P Notes: 71 YO with PMH afib, CHF, TIA, HTN, carotid artery stenosis, peripheral arterial disease, lifelong smoker who is not a candidate for chronic anticoagulation. He is admitted electively and underwent LAAO with Watchman device. He is observed overnight in CV1 and did well. Assessment: 1. Atrial fibrillation s/p LAAO with watchman device 2. Chronic systolic and diastolic CHF - LVEF 35-39% 3. Hypertension 4. PAD Plan: 1. Continue Eliquis 5 mg BID, DOMINIQUE in 6 weeks to confirm occlusion of LAP, then will DC AC 2. continue HF medications: BB and ACEI 3. Recommend stopping amlodipine due to HFrEF but will defer this to his primary route sales associate 4. post procedure echo reviewed by Dr. Ortega - on pericardial effusion 5. EP [employer] to DC right groin 8 figure suture 6. Okay to DC home and outpatient FU with Dr. Castro Quality: [facility] [place] VTE Prophylaxis VTE prophylaxis initiated: yes (on Eliquis), no mechanical, reason: at 1104 at 1254 RUST #:[id number] END OF REPORT [facility] 2021-08-30 10:15:00 [facility] ([facility]) Discharge Summary REPORT#:[id number] REPORT STATUS: Signed DATE:08/30/21 TIME: 1015 PATIENT: BERNARDA RIOS UNIT #: [id number] ROOM[address]BED[address] : [birth year] AGE: 68 SEX: M ATTEND: Lj Ortega MD ADM AUTHOR: Vincent Shoemaker * ALL edits or amendments must be made on the electronic/computer document * PCP PCP Discharge to: home General Information Discharge date: 08/30/21 Hospital course: Patient with long standing persistent atrial fibrillation, CHADSVASC score of 4, and intolerance to long-term anticoagulation due to high risk of stroke and bleeding. Patient is s/p successful implantation of a 35mm Watchman device in the left atrial appendage. Patient tolerated the procedure without post-op complications. No thrombus was identified in the pre-/intra-op DOMINIQUE. Postoperatively, chest x-ray is negative for any acute process. Post-op echo did not show a pericardial effusion. Patient ambulated without any difficulty, and heart rate and blood pressure are stable. Right groin suture removed by this [employer]. No infection, bleeding, or hematoma. Patient was provided with post-Watchman discharge instructions. Patient is to follow up with PCP and route sales associate in 1 to 2 weeks post discharge. Patient is to follow up with route sales associate for the 45-day DOMINIQUE, and for anticoagulation recommendation. Patient is to continue Eliquis until the 45-day DOMINIQUE. If the 45-day DOMINIQUE shows a well-seated watchman device with no leaks or thrombus, then Eliquis will be discontinued and the patient will be initiated on aspirin and Plavix. Duration of aspirin is lifelong. Duration of Plavix is 6 months post 45-day DOMINIQUE. Post-Watchman discharge instructions given to the patient who verbalized understanding, and patient was instructed to report any complaints of chest pain , shortness of breath, lightheadedness, or dizziness to the route sales associate. Med Rec Med Rec Discharge meds: Continue taking these medications: LISINOPRIL (ZESTRIL) 20 MG TAB 20 MILLIGRAM ORAL DAILY. METOPROLOL TARTRATE (LOPRESSOR) 50 MG TAB 50 MILLIGRAM ORAL TWICE DAILY. amLODIPine (NORVASC) 10 MG TAB 10 MILLIGRAM ORAL DAILY. APIXABAN (ELIQUIS) 5 MG TAB 5 MILLIGRAM ORAL TWICE DAILY. Objective VS/I O Last Documented: Result Date Time Pulse Ox 91 08/30 0840 B/P 151/92 08/30 0840 B/P Mean 0.0 08/30 0840 Temp 36.9 08/30 0840 Pulse 85 08/30 0840 Resp 14 08/30 0840 O2 Delivery Room air 08/30 0601 24 hour I O ending at 0700: 08/30 0700 08/29 1900 Intake Total Output Total Balance Patient 86.364 kg Weight Weight Stated/Reported Measurement Method PATIENT WEIGHT: Weight (lb): 190 Weight (oz): 6.4 Weight (kg): 86.364 General appearance: alert, awake, oriented Cardiovascular: irregular rhythm Respiratory: clear to auscultation, no distress GI: soft, non-tender Extremities: moves all Neuro/WINDSCREEN FITTER: alert, oriented X 3 Skin: dry Wound/incision: Location: Right groin suture removed by this [employer]. No infection, bleeding, or hematoma. Results Findings/Data: Laboratory Tests: 08/30 08/29 08/29 0425 2033 1231 Chemistry Sodium (134 - 147 mEq/L) 140 Potassium (3.4 - 5.0 mEq/L) 4.8 Chloride (100 - 108 mEq/L) 104 Carbon Dioxide (21 - 33 mEq/l) 31 Anion Gap (0 - 20) 10 BUN (7 - 18 mg/dL) 15 Creatinine (0.6 - 1.3 mg/dL) 1.2 Glomerular Filtr Rate (70 - 80) 59.7 L Glucose (70 - 110 mg/dL) 96 POC Glucose (70 - 110 MG/DL) 132 H Calcium (8.0 - 10.5 mg/dL) 9.2 Coagulation Activated Coag Time (74 - 137 SEC) 327 H Hematology WBC (4.5 - 11.0 x10 3/uL) 6.1 RBC (4.00 - 5.60 x10 6/uL) 4.73 Hgb (12.5 - 16.9 g/dL) 14.4 Hct (37.5 - 50.7 %) 45.6 MCV (81.0 - 99.0 fL) 96.4 MCH (27.0 - 33.0 pg) 30.4 MCHC (33.0 - 37.0 g/dL) 31.6 L RDW (11.5 - 14.5 %) 12.7 Plt Count (150 - 400 x10 3/uL) 251 MPV (7.0 - 9.0 fL) 10.6 H Neut % (Auto) (56.0 - 77.0 %) 64.1 Lymph % (Auto) (14.0 - 32.0 %) 20.8 Pepin % (Auto) (4.8 - 9.0 %) 14.6 H Eos % (Auto) (0.3 - 3.7 %) 0.0 L Baso % (Auto) (0.0 - 2.0 %) 0.3 Neut # (Auto) (2.0 - 7.6 x10 3/uL) 3.91 Lymph # (Auto) (1.0 - 3.8 x10 3/uL) 1.27 Pepin # (Auto) (0.1 - 0.8 x10 3/uL) 0.89 H Eos # (Auto) (0.0 - 0.2 x10 3/uL) 0.00 Baso # (Auto) (0.0 - 0.2 x10 3/uL) 0.02 Abs Immat Gran (auto) (0.00 - 0.03 x10 3/uL) 0.01 Add Manual Diff NO Immature Gran % (0.0 - 2.0 %) 0.2 Nucleated RBC % (0 - 0 %) 0.0 Nucleated RBCs # (Man) (0.0 - 0.1 x10 3/uL) 0.00 Radiology data: Recent Impressions: RADIOLOGY - XR CHEST 1 V 08/29 1511 Report Impression - Status: SIGNED Entered: 08/29/2021 6847 IMPRESSION: No acute cardiopulmonary findings. Impression By: [email or web address] - Jovanny Lambert M.D. Treatments Procedures Treatments Procedures: Left atrial appendage closure using 35 mm Watchman FLX closure device. Lab: Chemistry last 24 hrs: 08/30 0425 Chemistry Sodium (134 - 147 mEq/L) 140 Potassium (3.4 - 5.0 mEq/L) 4.8 Chloride (100 - 108 mEq/L) 104 BUN (7 - 18 mg/dL) 15 Creatinine (0.6 - 1.3 mg/dL) 1.2 Glucose (70 - 110 mg/dL) 96 Hematology last 24 hrs: 08/30 0425 Hematology WBC (4.5 - 11.0 x10 3/uL) 6.1 Hgb (12.5 - 16.9 g/dL) 14.4 Hct (37.5 - 50.7 %) 45.6 Plt Count (150 - 400 x10 3/uL) 251 Neut % (Auto) (56.0 - 77.0 %) 64.1 Imaging: Recent Impressions: RADIOLOGY - XR CHEST 1 V 08/29 1511 Report Impression - Status: SIGNED Entered: 08/29/2021 1545 IMPRESSION: No acute cardiopulmonary findings. Impression By: [email or web address] - Jovanny Lambert M.D. Discharge Instructions PCP PCP: PCP: No Primary or Family Physician )( Discharge to: Home/Self Care Discharge Instructions Additional Discharge Routines: Attending Follow-Up )( Diet: Cardiac )( Activity: As Tolerated Follow-up Appointments Attending Physician: Attending Physician: George Castro MD Attending physician follow up timeframe: In 1-2 weeks at 1254 at 0912 RPT #:[id number] END OF REPORT [facility] 2021-08-30 09:57:00 [phone] [address] PATIENT NAME: BERNARDA RIOS ADMIT DATE: 08/29/21 ACCOUNT NO: [id number] ROOM NO: G.3355 AGE: 71 REPORT TYPE: eECHOCARDIOGRAM REPORT SEX: M ADMITTING PHYSICIAN:Lj Ortega MD ATTENDING PHYSICIAN:Lj Ortega MD *[address] [address] Limited Transthoracic Echocardiogram Patient: Bernarda Rios Study Date: 08/30/2021 BP: 134 / 92 Location: [facility] URN: [id number] : 1950 Age: 71 Height: 71 in / 180.3 cm Gender: M Weight: 189.6 lb / 86.2 kg BMI/BSA: 26.5 kg/m 2 / 2.06 m 2 *Ordering Physician: * Vincent Shoemaker *Interpreting Physician: * Lj Ortega MD *Drawing Kiln Operator: Debbie Coe ---- Indications: POST AMULET. ---- Study data: Transthoracic echocardiogram, limited study. Procedure: Transthoracic echocardiography was performed. Images were obtained using a HubHuman cardiac ultrasound machine. Image quality was adequate. The study was technically limited due to poor acoustic window availability. Limited 2D and limited spectral Doppler. Location: Bedside. Patient status: Inpatient. Patient room number: 3355. Study status: Routine. ---- Findings Left ventricle: The cavity size is normal. Wall thickness is increased. The estimated ejection fraction is 35-39%. Pericardium: There is no pericardial effusion. PATIENT NAME: BERNARDA RIOS ---- Measurements Left ventricle Value Ref KILEY, LAX 4.1 cm 4.2 - 5.8 ESD, LAX 3.2 cm 2.5 - 4.0 ESD/bsa, LAX 1.5 cm/m 2 1.3 - 2.1 FS, LAX 23 % 25 - 43 ESD/bsa major ax, A4C 3.2 cm/m 2 --------- KILEY/bsa minor ax, A4C 3.2 cm/m 2 --------- KILEY major ax, A2C 7.7 cm --------- KILEY/bsa major ax, A2C 3.7 cm/m 2 --------- PW, ED 1.3 cm 0.6 - 1.0 IVS/PW, ED 1 --------- EF 46 % 52 - 72 Ventricular septum Value Ref IVS, ED 1.3 cm 0.6 - 1.0 ---- Conclusions Summary: Left ventricle: The cavity size is normal. Wall thickness is increased. The estimated ejection fraction is 35-39%. Prepared and electronically signed by Lj Ortega MD 08/30/2021 09:57 at 0957 PATIENT NAME: BERNARDA RIOS [facility] 2021-08-29 13:30:00 [id number] [address] PATIENT NAME: BERNARDA RIOS ADMIT DATE: 08/29/21 ACCOUNT NO: [id number] ROOM NO: GYonisCHIN AGE: 71 REPORT TYPE: eELECTROCARDIOGRAM REPORT SEX: M ADMITTING PHYSICIAN:Lj Ortega MD ATTENDING PHYSICIAN:Lj Ortega MD Order: [id number] Test Reason : POST WATCHMAN Test Date/Time Stamp: FriAug 29 2021 13:30:42 Blood Pressure : / mmHG Vent. Rate : 093 BPM Atrial Rate : 250 BPM P-R Int : 000 ms QRS Dur : 100 ms QT Int : 438 ms P-R-T Axes : 000 053 199 degrees QTc Int : 544 ms Atrial fibrillation Nonspecific T wave abnormality Prolonged QT Abnormal ECG Confirmed by YOON MARTE MD ([id number]) on 08/29/2021 6:07:38 PM Referred By: George Castro Confirmed by:YOON MARTE MD at 1807 PATIENT NAME: BERNARDA RIOS [facility] 2021-08-29 13:10:00 [id number] [place] [address] PATIENT NAME: BERNARDA RIOS ADMIT DATE: 08/29/21 ACCOUNT NO: [id number] ROOM NO: G.3397 AGE: 71 REPORT TYPE: CARDIAC CATHETERIZATION REPORT SEX: M ADMITTING PHYSICIAN:Lj Ortega MD ATTENDING PHYSICIAN:Lj Ortega MD PROCEDURE DATE: 08/29/2021 PROCEDURE PERFORMED: Left atrial appendage closure using 35 mm Watchman FLX closure device. INDICATIONS: Atrial fibrillation with high risk of stroke and bleeding, and not a candidate for anticoagulant. ACCESS: Right femoral vein, 16-Singaporean closed with [id number] suture. COMPLICATIONS: None. BLEEDING: Less than 20 mL. PRIMARY OPERATORS: George Castro MD and Lj Ortega MD DESCRIPTION OF PROCEDURE: After risks, benefits, and alternatives were explained, the patient agreed to procedure and signed informed consent. The patient was brought into cardiac catheterization laboratory, prepped and draped in usual sterile fashion and then general anesthesia was applied by anesthesia team and DOMINIQUE was performed. No thrombus was seen in the appendage. I then took a micropuncture kit with ultrasound accessed right femoral vein, placed an 8-Singaporean sheath, then upgraded to 16-Singaporean Cook sheath, gave partial dose of heparin, then took SL1 sheath over a wire into the SVC with the Houston needle inside and descended under the DOMINIQUE and fluoroscopy guidance and in the mid position, transseptal puncture was performed and advanced the catheter into the LA. LA pressure was measured at 21 mmHg. I took ProTrack wire into the left atrium, exchanged for the Watchman double curve sheath and then I took a pigtail into the left atrium through the Watchman sheath, navigated into the appendage and then advanced the sheath into the appendage. Angiogram of the appendage was performed and then 35 mm device was suitable for closure. We took the device prepped and de-aired in the usual sterile fashion. I then removed the pigtail after a good bleed back, advanced the Watchman delivery system into the left atrial appendage and secured in place. Full dose of heparin was given at this point, to assure ACT level above 250. Then, the device was deployed in the appendage under the DOMINIQUE and fluoroscopy guidance successfully and then PASS criteria were evaluated and met, then the device was released from position, then removed the Watchman sheath and the Cook sheath and placed [id number] suture with good hemostasis concluding the procedure. CONCLUSION: Successful left atrial appendage closure using 35 mm Watchman FLX closure device. PATIENT NAME: BERNARDA RIOS PLAN: Monitor for the next 4 hours. If no complication, can be released home. Dictated By: George Castro MD WT: CATH:AMMY/DEMETRA/ARLINE Conf#: [id number]/DID#: [id number] Authenticated by George Castro MD On 09/05/2021 09:19:38 AM at 0919 PATIENT NAME: BERNARDA RIOS [facility] 2021-08-27 16:31:00 [id number] [address] PATIENT NAME: BERNARDA RIOS ADMIT DATE: ACCOUNT NO: [id number] ROOM NO: AGE: 71 REPORT TYPE: eELECTROCARDIOGRAM REPORT SEX: M ADMITTING PHYSICIAN: ATTENDING PHYSICIAN:George Castro MD Order: [id number] Test Reason : PREOP Test Date/Time Stamp: FriAug 27 2021 16:31:32 Blood Pressure : / mmHG Vent. Rate : 076 BPM Atrial Rate : 075 BPM P-R Int : 000 ms QRS Dur : 096 ms QT Int : 434 ms P-R-T Axes : 000 063 122 degrees QTc Int : 488 ms Atrial fibrillation Nonspecific T wave abnormality Abnormal ECG PRE_OP Confirmed by YOON MARTE MD ([id number]) on 08/27/2021 6:19:44 PM Referred By: George Castro Confirmed by:YOON MARTE MD at 3136 PATIENT NAME: BERNARDA RIOS [facility]
--- NOTE | 2024-12-15 09:02 | RAD REPORT ---
EXAM: CT brain without contrast HISTORY: STROKE ALERT COMPARISON: 04/12/2022 TECHNIQUE: Multiple contiguous axial images were obtained and a CT of the brain without contrast. Sag ittal and coronal reformats were performed. One or more of the following dose reduction techniques were used: Automated exposure control, adjust ment of the mA and/or kV according to patient size, and/or iterative reconstruction. FINDINGS: No evidence of hydrocephalus, intracranial hemorrhage, or extra-axial fluid collection. Moderate brain atrophy with moderate periventricular and deep white matter chronic microvascular isc hemic changes present. Area of gliosis seen left watershed zone, unchanged. The calvarium is intact. The visualized paranasal sinuses and mastoid air cells are essentially clear . IMPRESSION: No evidence of acute intracranial abnormality. The findings were communicated with Sukumar Clements at 12/15/2024 8:40 AM by telephone.
[2024-12-15 09:11] LABS: Absolute Lymphocytes (CBC) 1.7 K/uL (0.7-4.9); Hematocrit 42.5 % (39.6-49.0); Hemoglobin 14.2 g/dL (13.6-17.9); MCH 29.1 pg (27.0-35.0); MCHC 33.3 g/dL (32.0-36.0); MCV 87.4 fL (80-100); MPV 8.5 fL (7.6-11.3); Nucleated RBC Absolute Count 0.0 (0-0); Nucleated Red Blood Cells % 0.1 % (0-0); RBC Red Blood Cell Count 4.87 M/uL (4.33-5.43); White Blood Count 4.80 thou/uL (4.3-10.9)
--- NOTE | 2024-12-15 09:12 | RAD REPORT ---
EXAMINATION: CTA HEAD CLINICAL INDICATION: AMS, Right facial droop TECHNIQUE: Axial CT images were obtained through the head after intravenous contrast utilizing angiog raphic protocol with 3D post-processing (maximum intensity projection images, volume rendered images and/or shaded surface rendered images). One or more of the following dose reduction technique s were used: Automated exposure control, adjustment of the mA and/or kV according to patient size, and/or iterative reconstruction. Unless otherwise specified, incidental findings do not require dedic ated imaging follow-up. COMPARISON: No prior exam. FINDINGS: ICA: The petrous, cavernous, and supraclinoid segments of the bilateral internal carotid arteries are normal. The ophthalmic artery origins are visualized and normal. The posterior communicating arteries are patent. ROBERTO: Anterior cerebral arteries are normal bilaterally. The anterior communicating artery is patent. MCA: Middle cerebral arteries are normal bilaterally. STEAM TANK OPERATOR: Posterior cerebral arteries are normal bilaterally. Vertebrobasilar: Left vertebral artery is diminutive. Moderate narrowing of the mid basilar artery is seen compatible with moderate stenosis. 3D images confirm these findings. 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 No additional flow abnormality of significance seen else where.
--- NOTE | 2024-12-15 09:15 | RAD REPORT ---
EXAMINATION: ONE VIEW CHEST XR CLINICAL INDICATION: Right facial droop, ams TECHNIQUE: Frontal chest projection is submitted. Examination is limited by patient positioning and t echnique. COMPARISON: 06/09/2022 FINDINGS: The lungs are under inflated and clear. The heart is mildly enlarged in size. No displaced fractures identified. IMPRESSION: No acute intrathoracic abnormalities.
--- NOTE | 2024-12-15 09:24 | RAD REPORT ---
EXAMINATION: CTA NECK CLINICAL INDICATION: Right facial droop TECHNIQUE: Axial CT images were obtained from the aortic arch to the skull base after intravenous con trast utilizing angiographic protocol with 3D post-processing (maximum intensity projection images, volume rendered images and/or shaded surface rendered images). One or more of the following dose redu ction techniques were used: Automated exposure control, adjustment of the mA and/or kV according to patient size, and/or iterative reconstruction. Unless otherwise specified, incidental findings do not require dedicated imaging follow-up. COMPARISON: 04/02/2022 FINDINGS: AORTA: The imaged aortic arch is normal. CCA: The common carotid arteries are patent and normal in caliber. ICA/ECA: Mild hard plaquing is present in both carotid bulbs. Flow artifact is noted in both carotid systems. No significant carotid stenosis suspected. VERTEBRAL: The cervical vertebral arteries are patent. Right vertebral artery is dominant. SOFT TISSUE: No significant neck soft tissue abnormalities. The visualized lung apices are clear. 3D images confirm these findings. IMPRESSION: No significant carotid stenosis suspected. There is linear suspected contrast flow artifact suspected in both carotid systems. Recommend carotid ultrasound follow-up to ensure this is an artifactual finding. NASCET criteria used. Mild 0-49% stenosis Moderate 50-69% stenosis Severe 70-99% stenosis
[2024-12-15 09:36] LABS: PT Prothrombin Time 15.3 SECONDS (10-13.0); PTT, Activated Partial Thromb 34.0 SECONDS (27.2-37.4); Protime INR 1.37
[2024-12-15 10:04] LABS: ALT/SGPT 15.0 U/L (16-61); AST/SGOT 13.0 U/L (15-37); Albumin 3.8 g/dL (3.4-5.0); Albumin/Globulin Ratio 0.8 (1.1-1.8); Alkaline Phosphatase 73.0 U/L (45-117); Anion Gap 7.8 mEq/L (5.0-15.0); BUN Blood Urea Nitrogen 19.0 mg/dL (7-18); Bilirubin Indirect, Calculated 1.4 mg/dL (0.2-0.8); Globulin 4.6 g/dL (2.3-3.5); Glucose Level 83.0 mg/dL (74-106); Magnesium 2.2 mg/dL (1.6-2.4); Potassium 3.8 mEq/L (3.5-5.1)
[2024-12-15 10:07] LABS: Troponin High Sensitivity 241.3 pg/mL (<58.9)
[2024-12-15] MEDS ORDERED: ASPIRIN 81 MG CHEWABLE TABLET ONE (10:17)
[2024-12-15] MEDS ORDERED: LABETALOL 20 MG/4ML SYRINGE IV ONE (10:17)
--- NOTE | 2024-12-15 10:28 | ER ---
Nurse's Notes [facility] Name: Henrry Rios Age: 74 yrs Sex: Male : 1950 Arrival Date: 12/15/2024 Time: 08:19 Bed 15 Private MD: Diagnosis: Altered mental status, unspecified;Essential (primary) hypertension;Cerebral infarction, unspecified;Elevated Troponin Presentation: 12/15 08:30 Chief complaint: Right sided facial droop, right sided weakness, and difficulty hb speaking upon waking today. Per son, last known well was yesterday at 0800, AOx4 and ambulatory at baseline. Risk Assessment: Do you want to hurt yourself or someone else? Patient reports no desire to harm self or others. Onset of symptoms is unknown. 08:30 Acuity: KALEY 2 hb 08:30 Method Of Arrival: Wheelchair hb 15:08 Coronavirus screen: At this time, the client does not indicate any symptoms associated me1 with coronavirus-19. Ebola Screen: No symptoms or risks identified at this time. Initial Sepsis Screen: Does the patient meet any 2 criteria? HR > 90 bpm. Does the patient have a suspected source of infection? No. Patient's initial sepsis screen is negative. Triage Assessment: 08:30 General: Appears in no apparent distress. slender, Behavior is cooperative, NONVERBAL. bp Pain: Unable to use pain scale. Does not appear to understand pain scale. EENT: No deficits noted. Neuro: Level of Consciousness is awake, confused, Oriented to none. Cardiovascular: Rhythm is sinus rhythm. Respiratory: No deficits noted. GI: Abdomen is non-distended. : No signs and/or symptoms were reported regarding the genitourinary system. Derm: No deficits noted. Musculoskeletal: No deficits noted. Historical: - Allergies: 08:28 No Known Allergies; hb - PMHx: 08:28 Congestive heart failure; Atrial fibrillation; Hypertensive disorder; stroke of unknown hb type-2019; Myocardial infarction; - Immunization history:: Adult Immunizations up to date. - Infectious Disease History:: Denies. - Social history:: Smoking status: unknown. Screenin:45 [facility] ED Fall Risk Assessment (Adult) History of falling in the last 3 months, bp including since admission No falls in past 3 months (0 pts) Confusion or Disorientation Yes (5 pts) Intoxicated or Sedated No (0 pts) Impaired Gait No (0 pts) Mobility Assist Device Used No (0 pt) Altered Elimination No (0 pt) Score/Fall Risk Level 3 or more points = High Risk Oriented to surroundings. Abuse screen: Denies threats or abuse. Denies injuries from another. Nutritional screening: No deficits noted. Tuberculosis screening: No symptoms or risk factors identified. 08:45 VAN Screening: Arm Drift: Minor drift. Visual Disturbance: No visual disturbance noted. bp Aphasia: Expressive aphasia noted. Provider notified of +VAN scoring. Neglect: No neglect noted. 10:15 Saida Swallow Protocol Exclusion Criteria: Unable to remain alert for testing: No Brief bp Cognitive Screen What is your name? Normal, Where are you right now? Normal, What year is it? Normal. Oral Mechanism Examination Facial Symmetry: Normal, Motion: Normal, Lip Closure: Normal, 3 oz Water Swallow Challenge: Pt able to drink all water without stopping, coughing, choking or throat clearing: Yes Result: PASS MD Notified: Sukumar Clements DO. Assessment: 08:22 Reassessment: CODE STROKE CALLED, PT TO CT WITH CHAYITO FORRESTER. 08:45 Reassessment: PT RETURNS FROM CT. CODE STROKE CANCELLED BY MD, PT OUTSIDE THE WINDOW. bp Vital Signs: 08:30 BP 220 / 153; Pulse 90; Resp 16; bp 08:45 BP 220 / 134; Pulse 88; Resp 15; Temp 98; Pulse Ox 98% on R/A; Weight 95 kg; Height 5 bp ft. 11 in. ; 09:00 BP 207 / 134; Pulse 75; Resp 16; Pulse Ox 97% ; bp 09:30 BP 198 / 137; Pulse 78; Resp 17; Pulse Ox 98% ; bp 10:00 BP 194 / 134; Pulse 77; Resp 17; Pulse Ox 97% ; bp 11:00 BP 179 / 130; Pulse 86; Resp 17; Pulse Ox 96% ; bp 11:30 BP 193 / 114; Pulse 68; Resp 18; Pulse Ox 98% ; me1 11:48 BP 205 / 120; Pulse 71; me1 12:00 BP 158 / 112; Pulse 77; Resp 16; Pulse Ox 98% ; me1 12:15 BP 164 / 98; Pulse 74; me1 12:30 BP 152 / 105; Pulse 77; Resp 15; Pulse Ox 98% ; me1 12:45 BP 156 / 105; Pulse 77; me1 13:00 BP 144 / 102; Pulse 76; Resp 16; Pulse Ox 99% ; me1 13:15 BP 139 / 105; Pulse 78; Resp 15; Pulse Ox 98% ; me1 13:30 BP 138 / 98; Pulse 79; Resp 16; Pulse Ox 99% ; me1 13:45 BP 143 / 100; Pulse 75; me1 14:00 BP 139 / 90; Pulse 84; Resp 18; Pulse Ox 99% on R/A; me1 14:15 BP 146 / 92; Pulse 80; me1 14:30 BP 154 / 105; Pulse 78; Resp 16; Pulse Ox 99% ; me1 14:45 BP 148 / 97; Pulse 80; me1 15:00 BP 165 / 107; Pulse 91; Resp 16; Pulse Ox 98% ; me1 15:15 BP 152 / 108; Pulse 83; me1 15:30 BP 142 / 101; Pulse 82; Resp 18; Pulse Ox 98% ; me1 08:45 Body Mass Index 29.21 (95.00 kg, 180.34 cm) bp NIH Stroke Scale Scores: 08:45 NIHSS Score: 8 bp 10:04 NIHSS Score: 15 ms3 ED Course: 08:26 Patient arrived in ED. ms3 08:27 Sukumar Clements DO is Attending Physician. ms3 08:29 Arm band placed on left wrist. hb 08:31 Marshall Pratt, RN is Primary Nurse. bp 08:31 Triage completed. hb 08:45 CT Head Angio In Process Unspecified. EDMS 08:45 CT Neck Angio In Process Unspecified. EDMS 08:45 CT Stroke Brain w/o Contrast In Process Unspecified. EDMS 08:45 Patient has correct armband on for positive identification. bp 09:06 Stroke CXR 1 View In Process Unspecified. EDMS 09:15 Initial lab(s) drawn, by nc, sent to lab. EKG done, by ED staff, reviewed by Sukumar Clements DO. Inserted saline lock: 22 gauge in left forearm, using aseptic technique. Blood collected. Flushed with 10 mL NS. 10:00 Provided Education on: POC. son Verbalized understanding. Client placed on continuous me1 cardiac and pulse oximetry monitoring. NIBP monitoring applied. surveillance system monitor on. Pulse ox on. NIBP on. 10:25 Joshua Louis MD is Hospitalizing Provider. ms3 10:47 Brain Wo Cont In Process Unspecified. EDMS 10:52 No provider procedures requiring assistance completed. bp 15:06 Patient admitted, IV remains in place. me1 15:12 Male Pure-Wick put in place. me1 15:13 Cleaned of incontinence. me1 20:37 Troponin High Sensitivity Sent. me1 Administered Medications: 10:23 Drug: Labetalol IV 10 mg IV at calculated rate once Route: IV; Rate: calculated rate; bp Site: left forearm; 11:30 Follow up: Response: Blood pressure is unchanged; IV Status: Completed infusion me1 10:23 Drug: Aspirin PO Chewable Tablet 324 mg PO once; 81 mg tablets x 4 Route: PO; bp 10:48 Follow up: Response: No adverse reaction bp 11:46 Drug: niCARdipine IV 5 mg/hr IV at calculated rate See Administration Instructions; me1 (Standard concentration 25 mg / 250 mL NS); Recommended max rate 15 mg/hr; Titrate 2.5 mg/hr as often as every 15 minutes to achieve goal (see titration policy); Goal parameter SBP less than 160 mmHg Route: IV; Rate: calculated rate; Site: left forearm; 14:02 Follow up: Rate change 2.5 mg/hr me1 15:20 Follow up: Rate change 5 mg/hr me1 16:50 Follow up: IV Status: Infusion continued upon admission me1 16:50 Follow up: Response: Blood pressure is lowered me1 Medication: 08:45 VIS not applicable for this client. bp Outcome: 10:26 Decision to Hospitalize by Provider. ms3 15:06 Admitted to ER Hold. Please see [facility] for further documentation. me1 15:06 Condition: stable 15:06 Instructed on the need for admit, 21:28 Patient left the ED. ha1 NIH Stroke Scale - NIH Stroke Score Date: 12/15/2024 Time: 08:45 Total Score = 8 10. Dysarthria (speech clarity - read or repeat words) - 0(Normal) 11. Extinction and Inattention (visual/tactile/auditory/spatial/personal) - 0(No abnormality) 1a. Level of Consciousness (LOC) - 0(Alert) 1b. Level of Consciousness (LOC) (Month \T\ Age) - 2(Neither) 1c. LOC Commands (Open \T\ Closes Eyes/Dirt Bike Mechanic) - 0(Both) 2. Best Gaze (Lateral Gaze Paresis) - 0(Normal) 3. Visual Field Loss - 0(No visual loss) 4. Facial Palsy - 1(Minor Paralysis) 5a. Left Arm: Motor (10-second hold) - 0(No drift) 5b. Right Arm: Motor (10-second hold) - 1(Drift) 6a. Left Leg: Motor (5-second hold - always test supine) - 0(No drift) 6b. Right Leg: Motor (5-second hold - always test supine) - 1(Drift) 7. Limb Ataxia (finger/nose \T\ heel/chappell - test with eyes open) - 0(Absent) 8. Sensory Loss (pinprick arms/legs/face) - 0(Normal) 9. Best Language: Aphasia (description/naming/reading) - 3(Mute, global aphasia) Initials: bp NIH Stroke Scale - NIH Stroke Score Date: 12/15/2024 Time: 10:04 Total Score = 15 10. Dysarthria (speech clarity - read or repeat words) - 2(Severe) 11. Extinction and Inattention (visual/tactile/auditory/spatial/personal) - 0(No abnormality) 1a. Level of Consciousness (LOC) - 0(Alert) 1b. Level of Consciousness (LOC) (Month \T\ Age) - 2(Neither) 1c. LOC Commands (Open \T\ Closes Eyes/Dirt Bike Mechanic) - 0(Both) 2. Best Gaze (Lateral Gaze Paresis) - 0(Normal) 3. Visual Field Loss - 0(No visual loss) 4. Facial Palsy - 1(Minor Paralysis) 5a. Left Arm: Motor (10-second hold) - 0(No drift) 5b. Right Arm: Motor (10-second hold) - 1(Drift) 6a. Left Leg: Motor (5-second hold - always test supine) - 1(Drift) 6b. Right Leg: Motor (5-second hold - always test supine) - 3(No effort against gravity) 7. Limb Ataxia (finger/nose \T\ heel/chappell - test with eyes open) - 2(Present in two limbs) 8. Sensory Loss (pinprick arms/legs/face) - 0(Normal) 9. Best Language: Aphasia (description/naming/reading) - 3(Mute, global aphasia) Initials: ms3 Signatures: Dispatcher [employer] EDChayito Thomas RN RN hb Marshall Pratt RN RN bp Sukumar Clements, DO ms3 Lisa Adams RN RN ha1 Mikayla Conroy RN RN me1 Corrections: (The following items were deleted from the chart) 08:59 08:45 Reassessment: PT RETURNS FROM CT bp bp 08:59 08:55 BP 220 / 134; Pulse 88bpm; Resp 15bpm; Pulse Ox 98% RA; Temp 98F; bp bp 09:32 08:55 BP 220 / 134; Pulse 88bpm; Resp 15bpm; Pulse Ox 98% RA; Temp 98F; 95 kg; bp Height 5 ft. 11 in.; BMI: 29.2; bp
--- NOTE | 2024-12-15 10:28 | EDPHYS ---
Physician Documentation [facility] Name: Henrry Rios Age: 74 yrs Sex: Male : 1950 Arrival Date: 12/15/2024 Time: 08:19 Bed 15 Private MD: ED Physician Sukumar Clements HPI: 12/15 10:29 This 74 yrs old Black Male presents to ER via Wheelchair with complaints of S/S of ms3 Possible Stroke. 10:29 74-year-old male with past medical history of congestive heart failure, atrial ms3 fibrillation, hypertension, stroke presents to the emergency department with his son for altered mental status, not talking, facial droop, right-sided weakness. Patient's son states last time patient was seen normal was 8 AM yesterday prior to him going to work. Patient unable to contribute to HPI as he is nonverbal at this time. Historical: - Allergies: 08:28 No Known Allergies; hb - PMHx: 08:28 Congestive heart failure; Atrial fibrillation; Hypertensive disorder; stroke of unknown hb type-2019; Myocardial infarction; - Immunization history:: Adult Immunizations up to date. - Infectious Disease History:: Denies. - Social history:: Smoking status: unknown. ROS: 10:29 Unable to obtain ROS due to Patient non-verbal, ms3 Exam: 10:29 Radiologist reports: Negative CT Head ms3 10:29 Constitutional: This is a well developed, well nourished patient who is awake, alert, and in no acute distress. Head/Face: Normocephalic, atraumatic. 10:29 Respiratory: Lungs have equal breath sounds bilaterally, clear to auscultation and percussion. No rales, rhonchi or wheezes noted. No increased work of breathing, no retractions or nasal flaring. Abdomen/GI: Soft, non-tender, with normal bowel sounds. No distension or tympany. No guarding or rebound. No evidence of tenderness throughout. Skin: Warm, dry with normal turgor. Normal color with no rashes, no lesions, and no evidence of cellulitis. 10:29 Cardiovascular: Rate: normal, Rhythm: regular, Pulses: no pulse deficits are appreciated, Heart sounds: murmur, systolic, 10:29 Neuro: Orientation: Non-verbal, Mentation: able to follow commands, Cranial nerves: right facial droop, Cerebellar function: unable to test, Motor: Right arm drift, bilateral lower extremities fall to the bed when asked to hold leg up, Gait: not tested. 10:37 ECG was reviewed by the Attending Physician. ms3 Vital Signs: 08:30 BP 220 / 153; Pulse 90; Resp 16; bp 08:45 BP 220 / 134; Pulse 88; Resp 15; Temp 98; Pulse Ox 98% on R/A; Weight 95 kg; Height 5 bp ft. 11 in. ; 09:00 BP 207 / 134; Pulse 75; Resp 16; Pulse Ox 97% ; bp 09:30 BP 198 / 137; Pulse 78; Resp 17; Pulse Ox 98% ; bp 10:00 BP 194 / 134; Pulse 77; Resp 17; Pulse Ox 97% ; bp 11:00 BP 179 / 130; Pulse 86; Resp 17; Pulse Ox 96% ; bp 11:30 BP 193 / 114; Pulse 68; Resp 18; Pulse Ox 98% ; me1 11:48 BP 205 / 120; Pulse 71; me1 12:00 BP 158 / 112; Pulse 77; Resp 16; Pulse Ox 98% ; me1 12:15 BP 164 / 98; Pulse 74; me1 12:30 BP 152 / 105; Pulse 77; Resp 15; Pulse Ox 98% ; me1 12:45 BP 156 / 105; Pulse 77; me1 13:00 BP 144 / 102; Pulse 76; Resp 16; Pulse Ox 99% ; me1 13:15 BP 139 / 105; Pulse 78; Resp 15; Pulse Ox 98% ; me1 13:30 BP 138 / 98; Pulse 79; Resp 16; Pulse Ox 99% ; me1 13:45 BP 143 / 100; Pulse 75; me1 14:00 BP 139 / 90; Pulse 84; Resp 18; Pulse Ox 99% on R/A; me1 14:15 BP 146 / 92; Pulse 80; me1 14:30 BP 154 / 105; Pulse 78; Resp 16; Pulse Ox 99% ; me1 14:45 BP 148 / 97; Pulse 80; me1 15:00 BP 165 / 107; Pulse 91; Resp 16; Pulse Ox 98% ; me1 15:15 BP 152 / 108; Pulse 83; me1 15:30 BP 142 / 101; Pulse 82; Resp 18; Pulse Ox 98% ; me1 08:45 Body Mass Index 29.21 (95.00 kg, 180.34 cm) bp NIH Stroke Scale Scores: 08:45 NIHSS Score: 8 bp 10:04 NIHSS Score: 15 ms3 MDM: 08:27 Medical Screening Exam initiated ms3 10:29 Differential diagnosis: CVA, metabolic disorder. TNKase (Tenecteplase) Screening: ms3 Contraindications: Patient reports onset of signs and symptoms of stroke greater than 6 hours ago: Yes. Data reviewed: vital signs, nurses notes, lab test result(s), EKG, radiologic studies, and as a result, I will admit patient. Consideration of Admission/Observation Patient was admitted/placed on observation. Management of patient was discussed with the following: Hospitalist: Dr Louis. Thread Puller: Dr Vaca- SBP should be 180 mm Hg, Asa, Plavix, folic acid. I considered the following discharge prescriptions or medication management in the emergency department Medications were administered in the Emergency Department. See MAR. Independent interpretation of the following test(s) in the Emergency Department EKG: See my EKG interpretation above CT Scan: My interpretation is CT Head without contrast images reviewed do not reveal ICH. Historians other than the Patient: Daughter/Son: Patient's son. Counseling: I had a detailed discussion with the patient and/or guardian regarding the historical points, exam findings, and any diagnostic results supporting the discharge/admit diagnosis, lab results, radiology results, the need for further work-up and treatment in the hospital. ED course: Discussed case with neurology and hospitalist group. Hospitalist, Dr. Louis, agrees with admission. All questions were answered. Patient has remained stable while in the emergency department.. 12/15 08:28 Order name: Basic Metabolic Panel; Complete Time: 10:10 ms3 12/15 08:28 Order name: CBC with Diff; Complete Time: 09:47 ms3 12/15 08:28 Order name: Hepatic Function; Complete Time: 10:10 ms3 12/15 08:28 Order name: High Sensitivity Troponin; Complete Time: 10:10 ms3 12/15 08:28 Order name: Magnesium; Complete Time: 10:10 ms3 12/15 08:28 Order name: Protime (+inr); Complete Time: 09:47 ms3 12/15 08:28 Order name: Ptt, Activated; Complete Time: 09:47 ms3 12/15 11:33 Order name: CBC with Automated Diff EDMS 08/13 11:33 Order name: CBC with Automated Diff EDMS 08/ 11:33 Order name: CBC with Automated Diff EDMS 08/ 11:33 Order name: CBC with Automated Diff EDMS 08/ 11:33 Order name: CBC with Automated Diff EDMS 08/ 11:33 Order name: CBC with Automated Diff EDMS 08/ 11:33 Order name: CBC with Automated Diff EDMS 08/ 11:33 Order name: Comprehensive Metabolic Panel EDMS 08/ 11:33 Order name: Comprehensive Metabolic Panel EDMS 08/ 11:33 Order name: Comprehensive Metabolic Panel EDMS 08/ 11:33 Order name: Comprehensive Metabolic Panel EDMS 08/ 11:33 Order name: Comprehensive Metabolic Panel EDMS 08/ 11:33 Order name: Comprehensive Metabolic Panel EDMS 08/ 11:33 Order name: Comprehensive Metabolic Panel EDMS 08/ 11:33 Order name: Lipid Profile EDMS 08 11:33 Order name: Lipid Profile EDMS 08/ 11:33 Order name: Troponin High Sensitivity EDMS 08/ 11:33 Order name: Troponin High Sensitivity EDMS 08/ 11:33 Order name: Troponin High Sensitivity EDMS 08/ 11:55 Order name: CREATININE WHOLE BLOOD EDMS 08 11:58 Order name: Glucose, Ancillary Testing EDMS 12/15 08:28 Order name: CT Head Angio; Complete Time: 09:47 ms3 12/15 08:28 Order name: CT Neck Angio; Complete Time: 09:47 ms3 12/15 08:28 Order name: CT Stroke Brain w/o Contrast; Complete Time: 09:47 ms3 12/15 08:28 Order name: Stroke CXR 1 View; Complete Time: 09:47 ms3 12/15 10:01 Order name: Brain Wo Cont; Complete Time: 11:04 EDMS 12/15 11:33 Order name: Echo with Doppler EDMS 12/15 11:33 Order name: Carotid Artery Bilateral EDMS 12/15 11:33 Order name: Occupational Therapy Consult EDMS 12/15 11:33 Order name: Physical Therapy Consult EDMS 12/15 11:33 Order name: Speech Therapy Consult EDMS 12/15 08:28 Order name: Accucheck; Complete Time: 08:47 ms3 12/15 08:28 Order name: Cardiac monitoring; Complete Time: 08:47 ms3 12/15 08:28 Order name: EKG - Nurse/Tech; Complete Time: 09:24 ms3 12/15 08:28 Order name: IV Saline Lock; Complete Time: 08:47 ms3 12/15 08:28 Order name: Labs collected and sent; Complete Time: 08:47 ms3 12/15 08:28 Order name: NPO; Complete Time: 08:47 ms3 12/15 08:28 Order name: O2 Per Protocol; Complete Time: 08:47 ms3 12/15 08:28 Order name: O2 Sat Monitoring; Complete Time: 08:47 ms3 12/15 08:28 Order name: Stroke Swallow Screen; Complete Time: 09:24 ms3 12/15 09:22 Order name: Labs - recollect needed: recollect green top; Complete Time: 10:01 bd 08 11:34 Order name: Misc. Order: Target diastolic BP less than 110, closer to 100; Complete la1 Time: 11:46 EC:37 Rate is 94 beats/min. Rhythm is irregularly irregular. QRS [place] is Normal. QRS interval ms3 is normal. Clinical impression: Atrial Fibrillation. Interpreted by me. Reviewed by me. Administered Medications: 10:23 Drug: Labetalol IV 10 mg IV at calculated rate once Route: IV; Rate: calculated rate; bp Site: left forearm; 11:30 Follow up: Response: Blood pressure is unchanged; IV Status: Completed infusion me1 10:23 Drug: Aspirin PO Chewable Tablet 324 mg PO once; 81 mg tablets x 4 Route: PO; bp 10:48 Follow up: Response: No adverse reaction bp 11:46 Drug: niCARdipine IV 5 mg/hr IV at calculated rate See Administration Instructions; me1 (Standard concentration 25 mg / 250 mL NS); Recommended max rate 15 mg/hr; Titrate 2.5 mg/hr as often as every 15 minutes to achieve goal (see titration policy); Goal parameter SBP less than 160 mmHg Route: IV; Rate: calculated rate; Site: left forearm; 14:02 Follow up: Rate change 2.5 mg/hr me1 15:20 Follow up: Rate change 5 mg/hr me1 16:50 Follow up: IV Status: Infusion continued upon admission me1 16:50 Follow up: Response: Blood pressure is lowered me1 Disposition: 10:36 Chart complete. ms3 Disposition Summary: 12/15/24 10:26 Hospitalization Ordered Notes: Hospitalization Status: Inpatient Admission ms3 Provider: Joshua Louis ms3 Condition: Stable ms3 Problem: new ms3 Symptoms: are unchanged ms3 Bed/Room Type: Standard ms3 Location: Intensive Care Unit(12/15/24 20:22) vk Room Assignment: 7-(12/15/24 20:22) vk Diagnosis - Altered mental status, unspecified ms3 - Essential (primary) hypertension ms3 - Cerebral infarction, unspecified ms3 - Elevated Troponin ms3 Forms: - Medication Reconciliation Form ms3 - SBAR form ms3 - Leadership Thank You Letter ms3 Critical care time excluding procedures: 10:29 Critical care time: Bedside Care: 35 minutes, Consultation: 10 minutes. Total time: 45 ms3 minutes NIH Stroke Scale - NIH Stroke Score Date: 12/15/2024 Time: 08:45 Total Score = 8 10. Dysarthria (speech clarity - read or repeat words) - 0(Normal) 11. Extinction and Inattention (visual/tactile/auditory/spatial/personal) - 0(No abnormality) 1a. Level of Consciousness (LOC) - 0(Alert) 1b. Level of Consciousness (LOC) (Month \T\ Age) - 2(Neither) 1c. LOC Commands (Open \T\ Closes Eyes/Cipher Expert) - 0(Both) 2. Best Gaze (Lateral Gaze Paresis) - 0(Normal) 3. Visual Field Loss - 0(No visual loss) 4. Facial Palsy - 1(Minor Paralysis) 5a. Left Arm: Motor (10-second hold) - 0(No drift) 5b. Right Arm: Motor (10-second hold) - 1(Drift) 6a. Left Leg: Motor (5-second hold - always test supine) - 0(No drift) 6b. Right Leg: Motor (5-second hold - always test supine) - 1(Drift) 7. Limb Ataxia (finger/nose \T\ heel/chappell - test with eyes open) - 0(Absent) 8. Sensory Loss (pinprick arms/legs/face) - 0(Normal) 9. Best Language: Aphasia (description/naming/reading) - 3(Mute, global aphasia) Initials: bp NIH Stroke Scale - NIH Stroke Score Date: 12/15/2024 Time: 10:04 Total Score = 15 10. Dysarthria (speech clarity - read or repeat words) - 2(Severe) 11. Extinction and Inattention (visual/tactile/auditory/spatial/personal) - 0(No abnormality) 1a. Level of Consciousness (LOC) - 0(Alert) 1b. Level of Consciousness (LOC) (Month \T\ Age) - 2(Neither) 1c. LOC Commands (Open \T\ Closes Eyes/Cipher Expert) - 0(Both) 2. Best Gaze (Lateral Gaze Paresis) - 0(Normal) 3. Visual Field Loss - 0(No visual loss) 4. Facial Palsy - 1(Minor Paralysis) 5a. Left Arm: Motor (10-second hold) - 0(No drift) 5b. Right Arm: Motor (10-second hold) - 1(Drift) 6a. Left Leg: Motor (5-second hold - always test supine) - 1(Drift) 6b. Right Leg: Motor (5-second hold - always test supine) - 3(No effort against gravity) 7. Limb Ataxia (finger/nose \T\ heel/chappell - test with eyes open) - 2(Present in two limbs) 8. Sensory Loss (pinprick arms/legs/face) - 0(Normal) 9. Best Language: Aphasia (description/naming/reading) - 3(Mute, global aphasia) Initials: ms3 Signatures: Dispatcher [employer] EDMS Seema Mendoza Lee, SAS PROGRAMMER ANALYST-C SAS PROGRAMMER ANALYST-Cla1 Chayito Kessler RN RN Marshall Pratt RN RN bp Sukumar Clements DO DO ms3 Mikayla Conroy RN RN la1 Anna Almanzar Corrections: (The following items were deleted from the chart) 08:28 08:28 Head Angio+CT.RAD.BRZ ordered. EDMS EDMS 08:28 08:28 Neck Angio+CT.RAD.BRZ ordered. EDMS EDMS 08:28 08:28 CT-STROKE BRAIN W/O CONTRAST+CT.RAD.BRZ ordered. EDMS EDMS 08:28 08:28 Chest Single View+RAD.RAD.BRZ ordered. EDCA EDMS 10:01 09:57 MR STROKE PROTOCOL+MRI.RAD.BRZ ordered. EDMS EDMS 13:53 10:26 Intensive Care Unit ms3 bd :53 10: ms3 bd : 13:53 [facility] ER HOLD bd vk :: ERHOLD- bd vk
--- NOTE | 2024-12-15 10:34 | P.HP ---
Certification for Inpatient Patient admitted to: Inpatient With expected LOS: >2 Midnights Patient will require the following post-hospital care: None Practitioner: I am a practitioner with admitting privileges, knowledge of patient current condition, hospital course, and medical plan of care. Services: Services provided to patient in accordance with Admission requirements found in Title 42 Section 412.3 of the Code of Federal Regulations Patient History Date of Service: 12/15/24 Reason for admission: CVA History of Present Illness: 74-year-old male with history of atrial fibrillation, chronic systolic congestive heart failure, previous CVA, hypertension, hyperlipidemia presents emergency department with chief complaint of right-sided weakness, altered mental status and recent inability to speak. Patient is currently staying at home where he lives with his family, his son works during the day. His son reports that he noticed some well changes in his voice the last 2 days and decreased oral intake but when he checked on him overnight he was not speaking, he was able to eat at that time. When he went to check on him this morning he found that he was not verbally responsive and he was very weak especially on the right side. Son reports his father's baseline is ambulatory without a walker, independent able to feed himself and cook and no difficulties with speech or significant confusion at baseline. Patient was evaluated here in the emergency department initially he was found to be very hypertensive, his labs were significant for an elevated high sensitive troponin of 241.3. CT head without contrast was performed which showed no acute findings. Patient has gone down for MRI at this time. CTA of the head and neck were performed which showed moderate stenosis of the mid basilar artery with no additional flow abnormalities of significance seen elsewhere. CTA of the neck was performed which showed no significant carotid stenosis suspected. There is a linear suspected contrast flow artifact suspected in both carotid systems recommend carotid ultrasound to follow-up to ensure this is artifactual finding. MRI of the brain was performed which showed acute CVA in the distribution of the left MCA territory superiorly. Nonhemorrhagic multifocal and moderate in size with a large area of infarction measuring about 3 cm. Patient is very weak primary in the right upper and lower extremity, has a right-sided facial droop and is aphasic at this time. He is having difficulty following simple commands. His blood pressure is markedly elevated as well, he may need to be started on a Cardene drip for better management of his blood pressure and admission to the ICU. Allergies No Known Allergies Allergy (Unverified 08/14/21 14:06) Home Medications: Atorvastatin Calcium 20 mg PO BEDTIME 30 Days #30 tablet 08/15/21 Aspirin [Aspirin EC 81 MG] 81 mg PO DAILY #30 tab 04/05/22 Folic Acid 1 mg PO DAILY #30 tab 04/05/22 Amiodarone HCl [Cordarone*] 200 mg PO DAILY #30 tab 04/17/22 Furosemide 40 mg PO DAILY 06/06/22 Losartan Potassium 25 mg PO DAILY 06/06/22 Metoprolol Tartrate [Lopressor*] 100 mg PO BID tab 06/11/22 Spironolactone [Aldactone*] 25 mg PO BID tab 06/11/22 - Past Medical/Surgical History Diabetic: No -: HTN -: CVA -: Afib -: Noncompliance -: HLD -: alcohol abuse -: CHF -: NSTEMI -: memory deficit following cerebral infarction Psychosocial/ Personal History: Currently living at home with his son who is away during the day - Social History Alcohol use: Yes CD- Drugs: No Caffeine use: Yes Place of Residence: Home Review of Systems is unable to be obtained Physical Examination - Physical Exam General: Alert, Other (Aphasic) HEENT: Atraumatic, PERRLA, Mucous membr. moist/pink, EOMI Neck: Supple, 2+ carotid pulse no bruit Respiratory: Clear to auscultation bilaterally, Normal air movement Cardiovascular: Normal S1 S2, Irregular heart rate/rhythm (A-fib, rate controlled) Capillary refill: <2 Seconds Gastrointestinal: Normal bowel sounds Musculoskeletal: No tenderness Integumentary: No rashes Neurological: Other (Aphasic, trouble following commands, weak in the right upper and lower extremities, right-sided facial droop NIH 15) - Studies Laboratory Data (last 24 hrs) 12/15/24 12/15/24 12/15/24 09:38 09:17 09:00 WBC 4.80 Hgb 14.2 Hct 42.5 Plt Count 236 PT 15.3 H INR 1.37 APTT 34.0 Sodium 137 Potassium 3.8 BUN 19 H Creatinine 1.24 Glucose 83 Magnesium 2.2 Total Bilirubin 1.8 H AST 13 L ALT 15 L Alkaline Phosphatase 73 Assessment and Plan - Plan Assessment: Acute ischemic CVAmultifocal in the distribution of the left MCA territory History of CVA Hypertensive emergency with underlying primary hypertension and noncompliance NSTEMI History of atrial fibrillation on chronic anticoagulation with noncompliance Chronic systolic congestive heart failure Plan: Acute ischemic CVAmultifocal in the distribution of the left MCA territory History of CVA Hypertensive emergency with underlying primary hypertension and noncompliance NSTEMI History of atrial fibrillation on chronic anticoagulation with noncompliance Chronic systolic congestive heart failure Cardiology and neurology consultations placed Patient significantly hypertensive, will start on Cardene and target blood pressures with a systolic less than 220 or diastolic of less than 110 Echocardiogram ordered Discussed anticoagulation/antiplatelet therapy with neurology who recommends continuing with Eliquis 5 mg twice daily Continue statin, folic acid PT/OT/speech therapy consultations placed patient with aphasia and weakness at this time Will need to be counseled extensively on medication compliance Likely to need inpatient rehab versus prison at discharge DVT PPX: Eliquis Code status: Full code Discharge Plan: Alf Plan to discharge in: Greater than 2 days - Advance Directives Does patient have a Living Will: No Does patient have a Durable POA for Healthcare: No - Code Status/Comfort Care Code Status Assessed: Yes (Full code) Critical Care: Yes Time Spent Managing Pts Care (In Minutes): 75
--- NOTE | 2024-12-15 10:55 | RAD REPORT ---
EXAMINATION: MRI BRAIN WITHOUT CONTRAST CLINICAL INDICATION: RUE weakness, aphasia TECHNIQUE: Multiplanar multisequence MR images of the brain were obtained without intravenous contras t. Unless otherwise specified, incidental findings do not require dedicated imaging follow-up. COMPARISON: Recent CUSHION SEWER imaging FINDINGS: INTRACRANIAL: Diffusion-weighted images show multiple small areas of acute infarction in the left MCA territory. Left temporal lobe. The largest area of infarction measuring about 3 cm. There is diminished ADC signal seen as well compatible with CVA.. There is moderate brain atrophy with moderat eT2/FLAIR hyperintensities in the periventricular and deep white matter regions, likely representing chronic microvascular ischemic changes. There is no mass effect or midline shift. No abn ormal extraaxial fluid collection. VASCULATURE: Normal signal voids in the larger intracranial arteries and dural venous sinuses. SINUSES: The paranasal sinuses and mastoid air cells are predominantly clear. BONE: The marrow signal pattern is within normal limits. IMPRESSION: Acute CVA in the distribution of the left MCA territory superiorly is present. This is nonhemorrhagic multifocal and moderate in size with the largest area of infarction measuring about 3 cm.
[2024-12-15] MEDS ORDERED: ONDANSETRON 4 MG/2 ML VIAL IV PRN (11:27)
[2024-12-15] MEDS ORDERED: Nicardipine/NS 25 MG/250 ML KIT IV ONE ×2 (11:38→17:35)
[2024-12-15] MEDS: NA CHLORIDE 0.9% 1,000 ML IV SCH (12:00)
--- NOTE | 2024-12-15 12:27 | RAD REPORT ---
EXAMINATION: CAROTID DUPLEX ULTRASOUND CLINICAL INDICATION: cva, abn cta neck TECHNIQUE: Real-time grayscale, color flow and spectral Doppler sonographic images were obtained of t he extracranial carotid system using a linear transducer. COMPARISON: Recent CT neck angiogram reviewed FINDINGS: RIGHT: Common carotid artery: 45 cm/s Internal carotid artery: 25 cm/s External carotid artery: 49 cm/s Right ICA/CCA ratio: 0.6 Plaque: Mild hard plaque Vertebral artery Antegrade LEFT: Common carotid artery: 55 cm/s Internal carotid artery: 29 cm/s External carotid artery: 33 cm/s Left ICA/CCA ratio: 0.5 Plaque: Mild hard plaque Vertebral artery Antegrade IMPRESSION: No hemodynamically significant stenosis (greater than 50%) within the extracranial internal carotid a rteries. The degrees of stenosis, if any, are quantified according to the consensus statement of the Society o f Radiologists in Ultrasound (SRUS). Please refer to Valerio E, Arnold C, Susan G et al. Carotid Artery Stenosis: Rock-Scale and Doppler US Diagnosis--Society of Radiologists in Ultrasound Consensus Conference. Radiology. 2003;229(2):340-6.
[2024-12-15] MEDS ORDERED: NA CHLORIDE 0.9% 1,000 ML ONE (17:35)
[2024-12-15] MEDS: Nicardipine/NS 25 MG/250 ML KIT IV SCH (17:36)
[2024-12-15] MEDS ORDERED: APIXABAN 5 MG TABLET ONE (20:51)
[2024-12-15] MEDS ORDERED: ATORVASTATIN 40 MG TAB ONE (20:52)
[2024-12-15] MEDS: APIXABAN 5 MG TABLET PO SCH (20:54)
[2024-12-15] MEDS: ATORVASTATIN 40 MG TAB PO SCH (20:54)
[2024-12-15 22:50] VITALS: O2SAT 98
[2024-12-16 05:11] LABS: Absolute Lymphocytes (CBC) 1.3 K/uL (0.7-4.9); Hematocrit 40.5 % (39.6-49.0); Hemoglobin 13.7 g/dL (13.6-17.9); MCH 29.2 pg (27.0-35.0); MCHC 33.9 g/dL (32.0-36.0); MCV 86.2 fL (80-100); MPV 7.7 fL (7.6-11.3); Nucleated RBC Absolute Count 0.0 (0-0); Nucleated Red Blood Cells % 0.2 % (0-0); RBC Red Blood Cell Count 4.70 M/uL (4.33-5.43); White Blood Count 4.30 thou/uL (4.3-10.9)
[2024-12-16 05:30] LABS: ALT/SGPT < 14 U/L (16-61); AST/SGOT 16 U/L (15-37); Albumin 3.5 g/dL (3.4-5.0); Albumin/Globulin Ratio 0.8 (1.1-1.8); Alkaline Phosphatase 70 U/L (45-117); Anion Gap 9.5 mEq/L (5.0-15.0); BUN Blood Urea Nitrogen 15 mg/dL (7-18); Globulin 4.6 g/dL (2.3-3.5); Glucose Level 88 mg/dL (74-106); HDL Cholesterol 46 mg/dL (40-60); LDL Cholesterol, Calculated 122 mg/dL (<130); LDL Cholesterol,Calc NonReport 122; Potassium 3.5 mEq/L (3.5-5.1)
[2024-12-16 06:27] LABS: Magnesium 2.0 mg/dL (1.6-2.4)
--- NOTE | 2024-12-16 08:39 | ECHO ---
HEIGHT: 4 ft 8 in WEIGHT: 129 lb 0 oz DATE OF STUDY: 12/15/[address]: Aleksandar Garcia NP 2-DIMENSIONAL: YES M.MODE: YES DOPPLER: YES COLOR FLOW: YES TDS: NO PORTABLE: YES DEFINITY: NO BUBBLE STUDY: NO DIAGNOSIS: STROKE CARDIAC HISTORY: CATHERIZATION: SURGERY: PROSTHETIC VALVE: PACEMAKER: MEASUREMENTS (cm) DIASTOLIC (NORMALS) SYSTOLIC (NORMALS) IVSd 1.2 (0.6-1.2) LA Diam 3.1 (1.9-4.0) LVEF 55-60% LVIDd 4.4 (3.5-5.7) LVIDs 2.7 (2.0-3.5) %FS 38% LVPWd 1.4 (0.6-1.2) Ao Diam 2.7 (2.0-3.7) 2 DIMENSIONAL ASSESSMENT: RIGHT ATRIUM: NORMAL LEFT ATRIUM: MILDLY DILATED RIGHT VENTRICLE: NORMAL LEFT VENTRICLE: MILD LEFT VENTRICULAR HYPERTROPHY TRICUSPID VALVE: TRACE OF TRICUSPID REGURGITATION MITRAL VALVE: NORMAL PULMONIC VALVE: NORMAL AORTIC VALVE: NORMAL PERICARDIAL EFFUSION: NONE AORTIC ROOT: NORMAL LEFT VENTRICULAR WALL MOTION: NORMAL. DOPPLER/COLOR FLOW: NORMAL. COMMENTS: 1. NORMAL LEFT VENTRICULAR SYSTOLIC FUNCTION. EJECTION FRACTION 55-60%, NORMAL WALL MOTION. 2. NORMAL DIASTOLIC FUNCTION. TECHNOLOGIST: JAMIA WEINSTEIN
[2024-12-16] MEDS: POTASSIUM CL SA 10 MEQ TAB PO ONE (08:58)
[2024-12-16] MEDS: FOLIC ACID 1 MG TABLET PO SCH (08:58)
[2024-12-16 12:06] VITALS: BMI 28.9
--- NOTE | 2024-12-16 12:19 | P.CNS ---
Date of Consult: 12/16/24 Chief Complaint: CVA History of Present Illness: Patient with PMH of HTN, AF, presented with left MCA stroke, patient is aphasic but denies chest pain, no palpitations, no syncope. no breathing problems. Allergies No Known Allergies Allergy (Unverified 08/14/21 14:06) Home medications list reviewed: Yes Home Medications: Atorvastatin Calcium 20 mg PO BEDTIME 30 Days #30 tablet 08/15/21 Aspirin [Aspirin EC 81 MG] 81 mg PO DAILY #30 tab 04/05/22 Folic Acid 1 mg PO DAILY #30 tab 04/05/22 Amiodarone HCl [Cordarone*] 200 mg PO DAILY #30 tab 04/17/22 Furosemide 40 mg PO DAILY 06/06/22 Losartan Potassium 25 mg PO DAILY 06/06/22 Metoprolol Tartrate [Lopressor*] 100 mg PO BID tab 06/11/22 Spironolactone [Aldactone*] 25 mg PO BID tab 06/11/22 - Past Medical/Surgical History Diabetic: No -: HTN -: CVA -: Afib -: Noncompliance -: HLD -: alcohol abuse -: CHF -: NSTEMI -: memory deficit following cerebral infarction Psychosocial/ Personal History: Currently living at home with his son who is away during the day - Social History Smoking Status: Unknown if ever smoked Alcohol use: Yes CD- Drugs: No Caffeine use: Yes Place of Residence: Home Review of Systems 10-point ROS is otherwise unremarkable Physical Examination Temp Pulse Resp BP Pulse Ox 97.4 F 87 18 162/96 H 99 12/16/24 08:00 12/16/24 11:00 12/16/24 11:00 12/16/24 11:00 12/16/24 11:00 General: Alert, In no apparent distress HEENT: Atraumatic, PERRLA, Mucous membr. moist/pink, EOMI, Sclerae nonicteric Neck: Supple, 2+ carotid pulse no bruit, No LAD, Without JVD or thyroid abnormality Respiratory: Clear to auscultation bilaterally, Normal air movement Cardiovascular: Regular rate/rhythm, Normal S1 S2 Gastrointestinal: Normal bowel sounds, No tenderness Musculoskeletal: No tenderness Integumentary: No rashes Neurological: Normal gait, Normal speech, Normal tone, Normal affect Lymphatics: No axilla or inguinal lymphadenopathy - Problems (1) Atrial fibrillation Current Visit: No Status: Acute Plan: continue amiodarone 200 mg po BID Resume Eliquis 5 mg po BID once ok with neurology team (2) Chronic systolic heart failure Current Visit: No Status: Acute Plan: resume patient home medications ONCE OK WITH NEUROLOGY TEAM Lopressor 50 mg po BID Aldactone 25 mg daily Losartan 25 mg daily (3) Hypertension Current Visit: No Status: Acute Plan: continue medications as above. (4) NSTEMI (non-ST elevated myocardial infarction) Current Visit: No Status: Acute Plan: most likely secondary to acute CVA Outpatient follow up with cardiology for stress test
[2024-12-16] MEDS ORDERED: HYDRALAZINE HCL 20 MG/ML VIAL IV PRN (12:30)
--- NOTE | 2024-12-16 14:18 | P.PN ---
Date of Service: 12/16/24 Subjective: No acute events overnight Still with aphasia and right-sided weakness Weaned off of Cardene overnight Blood pressure within range of permissive hypertension ROS: 10 point ROS as noted above, otherwise negative Physical exam GEN: Alert, aphasic HEENT: Normal conjunctiva, sclera anicteric CV: Regular rate and rhythm, no edema Pulm: Nonlabored respirations on room air ABD: Soft, nontender, nondistended MSK: No joint tenderness Integumentary: No rashes Neuro: Normal speech, normal affect aphasic, right-sided upper and lower extremity weakness, right-sided facial droop Vitals reviewed Assessment: Acute ischemic CVAmultifocal in the distribution of the left MCA territory History of CVA Hypertensive emergency with underlying primary hypertension and noncompliance NSTEMI History of atrial fibrillation on chronic anticoagulation with noncompliance Chronic systolic congestive heart failure Plan: Acute ischemic CVAmultifocal in the distribution of the left MCA territory History of CVA Hypertensive emergency with underlying primary hypertension and noncompliance NSTEMI History of atrial fibrillation on chronic anticoagulation with noncompliance Chronic systolic congestive heart failure Cardiology and neurology consultations placed Patient significantly hypertensive, will start on Cardene and target blood pressures with a systolic less than 220 or diastolic of less than 110 Weaned off of Cardene Allow for permissive hypertension today Resume blood pressure medications slowly the next 1 to 2 days Echocardiogram ordered Normal LVEF, wall motion, diastolic function Discussed anticoagulation/antiplatelet therapy with neurology who recommends continuing with Eliquis 5 mg twice daily Continue statin, folic acid PT/OT/speech therapy consultations placed patient with aphasia and weakness at this time Will need to be counseled extensively on medication compliance Likely to need inpatient rehab versus care home at discharge DVT PPX: Eliquis Code status: Full code Discharge Plan: Usp Plan to discharge in: Greater than 2 days Time Spent Managing Pts Care (In Minutes): 35
[2024-12-16] MEDS: AMIODARONE HCL 200 MG TAB PO SCH (21:06)
[2024-12-17] MEDS: METOPROLOL TARTRATE 5 MG/5 ML INJ IV STA (04:26)
[2024-12-17 05:47] LABS: Absolute Lymphocytes (CBC) 1.4 K/uL (0.7-4.9); Hematocrit 41.3 % (39.6-49.0); Hemoglobin 14.0 g/dL (13.6-17.9); MCH 29.1 pg (27.0-35.0); MCHC 33.9 g/dL (32.0-36.0); MCV 85.8 fL (80-100); MPV 7.7 fL (7.6-11.3); Nucleated RBC Absolute Count 0.0 (0-0); Nucleated Red Blood Cells % 0.2 % (0-0); RBC Red Blood Cell Count 4.82 M/uL (4.33-5.43); White Blood Count 3.80 thou/uL (4.3-10.9)
[2024-12-17 06:04] LABS: ALT/SGPT < 14 U/L (16-61); AST/SGOT 14 U/L (15-37); Albumin 3.5 g/dL (3.4-5.0); Albumin/Globulin Ratio 0.8 (1.1-1.8); Alkaline Phosphatase 70 U/L (45-117); Anion Gap 9.8 mEq/L (5.0-15.0); BUN Blood Urea Nitrogen 23 mg/dL (7-18); Globulin 4.3 g/dL (2.3-3.5); Glucose Level 81 mg/dL (74-106); Potassium 3.8 mEq/L (3.5-5.1)
--- NOTE | 2024-12-17 13:05 | P.PN ---
Date of Service: 12/17/24 Subjective: No acute events overnight Still with aphasia and right-sided weakness Off Cardene Blood pressure within range of permissive hypertension Will start BP meds slowly ROS: 10 point ROS as noted above, otherwise negative Physical exam GEN: Alert, aphasic HEENT: Normal conjunctiva, sclera anicteric CV: Regular rate and rhythm, no edema Pulm: Nonlabored respirations on room air ABD: Soft, nontender, nondistended MSK: No joint tenderness Integumentary: No rashes Neuro: Normal speech, normal affect aphasic, right-sided upper and lower extremity weakness, right-sided facial droop Vitals reviewed Assessment: Acute ischemic CVAmultifocal in the distribution of the left MCA territory History of CVA Hypertensive emergency with underlying primary hypertension and noncompliance NSTEMI History of atrial fibrillation on chronic anticoagulation with noncompliance Chronic systolic congestive heart failure Plan: Acute ischemic CVAmultifocal in the distribution of the left MCA territory History of CVA Hypertensive emergency with underlying primary hypertension and noncompliance NSTEMI History of atrial fibrillation on chronic anticoagulation with noncompliance Chronic systolic congestive heart failure Cardiology and neurology consultations placed Patient significantly hypertensive, will start on Cardene and target blood pressures with a systolic less than 220 or diastolic of less than 110 Weaned off of Cardene Allow for permissive hypertension today Resume blood pressure medications slowly the next 1 to 2 days Echocardiogram ordered Normal LVEF, wall motion, diastolic function Discussed anticoagulation/antiplatelet therapy with neurology who recommends continuing with Eliquis 5 mg twice daily Continue statin, folic acid PT/OT/speech therapy consultations placed patient with aphasia and weakness at this time Will need to be counseled extensively on medication compliance Likely to need inpatient rehab versus jail at discharge DVT PPX: Eliquis Code status: Full code Discharge Plan: Halfway Plan to discharge in: Greater than 2 days Time Spent Managing Pts Care (In Minutes): 35
[2024-12-17] MEDS: POTASSIUM CL SA 10 MEQ TAB PO ONE ×2 (13:30→13:56)
[2024-12-18 06:16] LABS: Absolute Lymphocytes (CBC) 1.6 K/uL (0.7-4.9); Hematocrit 42.7 % (39.6-49.0); Hemoglobin 14.3 g/dL (13.6-17.9); MCH 29.1 pg (27.0-35.0); MCHC 33.5 g/dL (32.0-36.0); MCV 86.8 fL (80-100); MPV 8.7 fL (7.6-11.3); Nucleated RBC Absolute Count 0.0 (0-0); Nucleated Red Blood Cells % 0.2 % (0-0); RBC Red Blood Cell Count 4.92 M/uL (4.33-5.43); White Blood Count 4.00 thou/uL (4.3-10.9)
[2024-12-18 06:36] LABS: AST/SGOT 17 U/L (15-37); Albumin 3.5 g/dL (3.4-5.0); Albumin/Globulin Ratio 0.8 (1.1-1.8); Alkaline Phosphatase 72 U/L (45-117); Anion Gap 13.7 mEq/L (5.0-15.0); BUN Blood Urea Nitrogen 30 mg/dL (7-18); Globulin 4.3 g/dL (2.3-3.5); Glucose Level 76 mg/dL (74-106); Potassium 3.7 mEq/L (3.5-5.1)
[2024-12-18 06:45] LABS: ALT/SGPT < 14 U/L (16-61)
[2024-12-18] MEDS: POTASSIUM CL SA 10 MEQ TAB PO ONE (08:09)
--- NOTE | 2024-12-18 09:46 | P.PN ---
Date of Service: 12/18/24 Subjective: No acute events overnight Still with aphasia and right-sided weakness Off Cardene Blood pressure within range of permissive hypertension Start metoprolol PO this morning Starting to arrange for IPR ROS: 10 point ROS as noted above, otherwise negative Physical exam GEN: Alert, aphasic HEENT: Normal conjunctiva, sclera anicteric CV: Regular rate and rhythm, no edema Pulm: Nonlabored respirations on room air ABD: Soft, nontender, nondistended MSK: No joint tenderness Integumentary: No rashes Neuro: Normal speech, normal affect aphasic, right-sided upper and lower extremity weakness, right-sided facial droop Vitals reviewed Assessment: Acute ischemic CVAmultifocal in the distribution of the left MCA territory History of CVA Hypertensive emergency with underlying primary hypertension and noncompliance NSTEMI History of atrial fibrillation on chronic anticoagulation with noncompliance Chronic systolic congestive heart failure Plan: Acute ischemic CVAmultifocal in the distribution of the left MCA territory History of CVA Hypertensive emergency with underlying primary hypertension and noncompliance NSTEMI History of atrial fibrillation on chronic anticoagulation with noncompliance Chronic systolic congestive heart failure Cardiology and neurology consultations placed Patient significantly hypertensive, will start on Cardene and target blood pressures with a systolic less than 220 or diastolic of less than 110 Weaned off of Cardene BP elevated this morning will start lower dose of metoprolol 25mg PO BID and monitor BP Echocardiogram ordered Normal LVEF, wall motion, diastolic function Discussed anticoagulation/antiplatelet therapy with neurology who recommends continuing with Eliquis 5 mg twice daily Continue statin, folic acid PT/OT/speech therapy consultations placed patient with aphasia and weakness at this time Will need to be counseled extensively on medication compliance Likely to need inpatient rehab versus assisted at discharge DVT PPX: Eliquis Code status: Full code Discharge Plan: Snf Plan to discharge in: Greater than 2 days Time Spent Managing Pts Care (In Minutes): 35
[2024-12-18] MEDS: METOPROLOL TAR 25 MG TAB PO SCH (10:21)
[2024-12-18 11:02] LABS: Blood Morphology Comment NOT SEEN (NOT SEEN); Differential Total Cells Count 100; Segmented Neutrophils 42 % (40-80)
[2024-12-18] MEDS: HYDRALAZINE HCL 20 MG/ML VIAL IV PRN (23:52)
[2024-12-19 06:03] LABS: Absolute Lymphocytes (CBC) 0.9 K/uL (0.7-4.9); Hematocrit 46.1 % (39.6-49.0); Hemoglobin 15.5 g/dL (13.6-17.9); MCH 29.3 pg (27.0-35.0); MCHC 33.6 g/dL (32.0-36.0); MCV 87.1 fL (80-100); MPV 9.0 fL (7.6-11.3); Nucleated RBC Absolute Count 0.0 (0-0); Nucleated Red Blood Cells % 0.1 % (0-0); RBC Red Blood Cell Count 5.30 M/uL (4.33-5.43); White Blood Count 6.90 thou/uL (4.3-10.9)
[2024-12-19 06:31] LABS: AST/SGOT 17 U/L (15-37); Albumin 3.8 g/dL (3.4-5.0); Albumin/Globulin Ratio 0.8 (1.1-1.8); Alkaline Phosphatase 75 U/L (45-117); Anion Gap 16.3 mEq/L (5.0-15.0); BUN Blood Urea Nitrogen 34 mg/dL (7-18); Globulin 4.7 g/dL (2.3-3.5); Glucose Level 117 mg/dL (74-106); Potassium 3.3 mEq/L (3.5-5.1)
[2024-12-19 06:36] LABS: ALT/SGPT < 14 U/L (16-61)
[2024-12-19] MEDS: LOSARTAN POTASSIUM 50 MG TABLET PO ONE (07:15)
[2024-12-19] MEDS: METOPROLOL TAR 25 MG TAB PO ONE (07:15)
[2024-12-19] MEDS: POTASSIUM CL SA 10 MEQ TAB PO ONE (08:50)
[2024-12-19] MEDS: SPIRONOLACTONE 25 MG TABLET PO SCH (10:08)
--- NOTE | 2024-12-19 16:20 | P.PN ---
Date of Service: 12/19/24 Subjective: No acute events overnight Still with aphasia and right-sided weakness Blood pressure markedly elevated throughout the day today Adjusting blood pressure medications ROS: 10 point ROS as noted above, otherwise negative Physical exam GEN: Alert, aphasic HEENT: Normal conjunctiva, sclera anicteric CV: Regular rate and rhythm, no edema Pulm: Nonlabored respirations on room air ABD: Soft, nontender, nondistended MSK: No joint tenderness Integumentary: No rashes Neuro: Normal speech, normal affect aphasic, right-sided upper and lower extremity weakness, right-sided facial droop Vitals reviewed Assessment: Acute ischemic CVAmultifocal in the distribution of the left MCA territory History of CVA Hypertensive emergency with underlying primary hypertension and noncompliance NSTEMI History of atrial fibrillation on chronic anticoagulation with noncompliance Chronic systolic congestive heart failure Plan: Acute ischemic CVAmultifocal in the distribution of the left MCA territory History of CVA Hypertensive emergency with underlying primary hypertension and noncompliance NSTEMI History of atrial fibrillation on chronic anticoagulation with noncompliance Chronic systolic congestive heart failure Cardiology and neurology consultations placed Patient significantly hypertensive, will start on Cardene and target blood pressures with a systolic less than 220 or diastolic of less than 110 Weaned off of Cardene BP elevated this morning will start lower dose of metoprolol 25mg PO BID and monitor BP Blood pressure markedly elevated today, started back on metoprolol 50 mg twice daily, spironolactone 25 mg daily, losartan 25 mg twice daily Echocardiogram ordered Normal LVEF, wall motion, diastolic function Discussed anticoagulation/antiplatelet therapy with neurology who recommends continuing with Eliquis 5 mg twice daily Continue statin, folic acid PT/OT/speech therapy consultations placed patient with aphasia and weakness at this time Will need to be counseled extensively on medication compliance DVT PPX: Eliquis Code status: Full code Discharge Plan: Inpatient rehab Plan to discharge in: 1 day Time Spent Managing Pts Care (In Minutes): 35
[2024-12-19] MEDS: HYDRALAZINE HCL 20 MG/ML VIAL IV ONE (16:22)
[2024-12-19] MEDS: METOPROLOL TAR 25 MG TAB PO SCH (17:38)
[2024-12-19] MEDS: LOSARTAN POTASSIUM 50 MG TABLET PO SCH (20:40)
[2024-12-20] MEDS: HYDRALAZINE HCL 20 MG/ML VIAL IV ONE (00:15)
[2024-12-20 05:14] LABS: Absolute Lymphocytes (CBC) 0.9 K/uL (0.7-4.9); Hematocrit 47.8 % (39.6-49.0); Hemoglobin 16.2 g/dL (13.6-17.9); MCH 29.2 pg (27.0-35.0); MCHC 33.8 g/dL (32.0-36.0); MCV 86.4 fL (80-100); MPV 8.4 fL (7.6-11.3); Nucleated RBC Absolute Count 0.0 (0-0); Nucleated Red Blood Cells % 0.0 % (0-0); RBC Red Blood Cell Count 5.53 M/uL (4.33-5.43); White Blood Count 11.00 thou/uL (4.3-10.9)
[2024-12-20 05:31] LABS: AST/SGOT 19 U/L (15-37); Albumin 3.8 g/dL (3.4-5.0); Albumin/Globulin Ratio 0.8 (1.1-1.8); Alkaline Phosphatase 73 U/L (45-117); Anion Gap 15.2 mEq/L (5.0-15.0); BUN Blood Urea Nitrogen 52 mg/dL (7-18); Globulin 4.7 g/dL (2.3-3.5); Glucose Level 141 mg/dL (74-106); Potassium 3.2 mEq/L (3.5-5.1)
[2024-12-20 05:42] LABS: ALT/SGPT < 14 U/L (16-61)
[2024-12-20] MEDS: Ringers Lactate 1,000 ML IV SCH ×2 (06:36→18:15)
[2024-12-20] MEDS: POTASSIUM 25 MEQ EFFERV TAB PO ONE (08:53)
[2024-12-20] MEDS ORDERED: LOSARTAN POTASSIUM 50 MG TABLET PO SCH (09:00)
--- NOTE | 2024-12-20 11:30 | P.PN ---
Subjective Date of Service: 12/20/24 Chief Complaint: CVA Subjective: No new changes, No C/O voiced, Tolerating diet Review of Systems 10-point ROS is otherwise unremarkable Physical Examination - Vital Signs Temperature: 97.3 F Blood Pressure: 139/82 Pulse: 81 Respirations: 12 Pulse Ox (%): 99 - Physical Exam General: Alert, In no apparent distress HEENT: Atraumatic, PERRLA, EOMI Neck: Supple, JVD not distended Respiratory: Clear to auscultation bilaterally, Normal air movement Cardiovascular: Regular rate/rhythm, Normal S1 S2 Gastrointestinal: Normal bowel sounds, No tenderness Musculoskeletal: No tenderness Integumentary: No rashes Neurological: Normal speech, Normal tone, Normal affect Lymphatics: No axilla or inguinal lymphadenopathy - Studies Medications List Reviewed: Yes Assessment And Plan - Current Problems (Diagnosis) (1) Atrial fibrillation Current Visit: No Status: Acute Plan: continue amiodarone 200 mg po BID continue Eliquis 5 mg po bid continue to monitor on tele no further inpatient cardiac work up needed. outpatient follow up with cardiology please call with any questions. (2) Chronic systolic heart failure Current Visit: No Status: Acute Plan: Lopressor 50 mg po BID Aldactone 25 mg daily Losartan 25 mg daily (3) Hypertension Current Visit: No Status: Acute Plan: continue medications as above. (4) NSTEMI (non-ST elevated myocardial infarction) Current Visit: No Status: Acute Plan: most likely secondary to acute CVA Outpatient follow up with cardiology for stress test
--- NOTE | 2024-12-20 14:15 | RAD REPORT ---
Procedure: Chest Single View HISTORY: Cough COMPARISON: December 15, 2024 FINDINGS: The lungs appear clear of acute infiltrate. No significant pleural effusion noted. The heart is mildly to moderately enlarged. Distended colon elevates both hemidiaphragms. IMPRESSION: Distended colon elevates both hemidiaphragms. The lucencies beneath the diaphragms are all probably a ir within colon. Pneumoperitoneum is considered less likely. If the patient has clinical symptoms to suggest a perforated viscus then CT would be recommended.
--- NOTE | 2024-12-20 15:24 | RAD REPORT ---
EXAMINATION: CT ABDOMEN AND PELVIS WITHOUT CONTRAST CLINICAL INDICATION: Abdominal pain. Abnormal x-ray TECHNIQUE: CT abdomen and pelvis was performed, as per department protocol. IV contrast and oral was not administered.Axial, sagittal and coronal reconstructions were obtained. One or more of the following dose reduction techniques were used: Automated exposure control, adjustment of the mA and/o r kV according to the patient size, and/or iterative reconstruction. Unless otherwise specified, incidental findings do not require dedicated imaging follow-up. [id number]. COMPARISON: No prior exam. FINDINGS: The lack of intravenous and oral contrast limits evaluation of solid organs, vessels and bowel. The liver, spleen, pancreas, adrenals and kidneys appear grossly normal. No hydronephrosis Rectum is distended with stool measuring 8 cm. There is mild dilatation of the entire colon. The colo n is filled with air and stool. Colon elevates the diaphragms. No free air. IMPRESSION: Fecal impaction with mild colonic
--- NOTE | 2024-12-20 17:34 | P.PN ---
Date of Service: 12/20/24 Subjective: Renal function with some worsening overnight Blood pressure better controlled No other acute events overnight ROS: 10 point ROS as noted above, otherwise negative Physical exam GEN: Alert, aphasic HEENT: Normal conjunctiva, sclera anicteric CV: Regular rate and rhythm, no edema Pulm: Nonlabored respirations on room air ABD: Soft, nontender, nondistended MSK: No joint tenderness Integumentary: No rashes Neuro: Normal speech, normal affect aphasic, right-sided upper and lower extremity weakness, right-sided facial droop Vitals reviewed Assessment: Acute ischemic CVAmultifocal in the distribution of the left MCA territory History of CVA Hypertensive emergency with underlying primary hypertension and noncompliance NSTEMI History of atrial fibrillation on chronic anticoagulation with noncompliance Chronic systolic congestive heart failure Acute kidney injury Fecal impaction/constipation Plan: Acute ischemic CVAmultifocal in the distribution of the left MCA territory History of CVA Hypertensive emergency with underlying primary hypertension and noncompliance NSTEMI History of atrial fibrillation on chronic anticoagulation with noncompliance Chronic systolic congestive heart failure Cardiology and neurology consultations placed Patient significantly hypertensive on admission, he was started on Cardene and admitted to the ICU Weaned off of Cardene BP elevated this morning will start lower dose of metoprolol 25mg PO BID and monitor BP Home blood pressure medications have been resumed and blood pressure has improved Echocardiogram ordered Normal LVEF, wall motion, diastolic function Discussed anticoagulation/antiplatelet therapy with neurology who recommends continuing with Eliquis 5 mg twice daily Continue statin, folic acid PT/OT/speech therapy consultations placed patient with aphasia and weakness at this time Will need to be counseled extensively on medication compliance Acute kidney injury Continue IV fluids overnight Recheck, strain the morning If persistent or worsening will consider nephrology consult CT performed today without renal obstructive findings Fecal impaction/constipation CT abdomen pelvis today shows fecal impaction with colonic distention Getting soapsuds enema now Will also start scheduled stool softeners Possible discharge to inpatient rehab if renal function improves and able to pass stool Nurse reports some stool has already passed during enema DVT PPX: Eliquis Code status: Full code Discharge Plan: Inpatient rehab Plan to discharge in: 1 day Time Spent Managing Pts Care (In Minutes): 35
[2024-12-20] MEDS: DOCUSATE NA 100 MG CAP PO SCH (20:52)
[2024-12-21 04:31] LABS: Absolute Lymphocytes (CBC) 0.9 K/uL (0.7-4.9); Hematocrit 44.9 % (39.6-49.0); Hemoglobin 15.3 g/dL (13.6-17.9); MCH 29.2 pg (27.0-35.0); MCHC 34.1 g/dL (32.0-36.0); MCV 85.7 fL (80-100); MPV 8.5 fL (7.6-11.3); Nucleated RBC Absolute Count 0.0 (0-0); Nucleated Red Blood Cells % 0.1 % (0-0); RBC Red Blood Cell Count 5.24 M/uL (4.33-5.43); White Blood Count 9.20 thou/uL (4.3-10.9)
[2024-12-21 04:54] LABS: ALT/SGPT < 14 U/L (16-61); AST/SGOT 21 U/L (15-37); Albumin 3.6 g/dL (3.4-5.0); Albumin/Globulin Ratio 0.9 (1.1-1.8); Alkaline Phosphatase 65 U/L (45-117); Anion Gap 25.2 mEq/L (5.0-15.0); BUN Blood Urea Nitrogen 69 mg/dL (7-18); Globulin 4.2 g/dL (2.3-3.5); Glucose Level 72 mg/dL (74-106); Potassium 3.2 mEq/L (3.5-5.1)
[2024-12-21] MEDS: POTASSIUM 25 MEQ EFFERV TAB PO ONE (09:26)
[2024-12-21 16:44] VITALS: BP 134/87; TEMP 97.4
--- NOTE | 2024-12-21 19:03 | P.PN ---
Date of Service: 12/21/24 I was called by the tenderness to examine patient because patient is having difficulty breathing. Patient seen and examined and noted to be unresponsive. licensed veterinary technician called to report patient heart rate is down to 20s. Patient had no pauses when I checked and no heartbeat on auscultation. ZA GARCIA was called. ACLS carried out, patient was pulseless electrical activity, then developed ventricular fibrillation, He was given multiple rounds of epinephrine, bicarb. He was also given calcium gluconate and magnesium. ACLS carried out, no ROSC achieved. Patient on 12/21/2024 at 17:16. Family informed.
--- NOTE | 2024-12-21 20:53 | P.DS ---
Admission Date: 12/15/24 Discharge Date: 12/21/24 Disposition: TRANSFER TO INPATIENT REHAB Discharge Condition: FAIR Reason for Admission: CVA Hospital Course: Subjective: Patient was seen on morning rounds, eyes tracking around the room, non-verbal, no edema to BLE, some cough and rhonchi noted on examination. Oxygen saturations noted at 96% on Room air, telemetry showing afib with rate control. ROS: 10 point ROS as noted above, otherwise negative Physical exam GEN: Alert, aphasic HEENT: Normal conjunctiva, sclera anicteric CV: Regular rate and rhythm, no edema Pulm: Nonlabored respirations on room air ABD: Soft, nontender, nondistended MSK: No joint tenderness Integumentary: No rashes Neuro: Normal speech, normal affect aphasic, right-sided upper and lower extremity weakness, right-sided facial droop Vitals reviewed Assessment: Acute ischemic CVAmultifocal in the distribution of the left MCA territory History of CVA Hypertensive emergency with underlying primary hypertension and noncompliance NSTEMI History of atrial fibrillation on chronic anticoagulation with noncompliance Chronic systolic congestive heart failure Acute kidney injury Fecal impaction/constipation Plan: Acute ischemic CVAmultifocal in the distribution of the left MCA territory History of CVA Hypertensive emergency with underlying primary hypertension and noncompliance NSTEMI History of atrial fibrillation on chronic anticoagulation with noncompliance Chronic systolic congestive heart failure Cardiology and neurology consultations placed Patient significantly hypertensive on admission, he was started on Cardene and admitted to the ICU Weaned off of Cardene BP elevated this morning will start lower dose of metoprolol 25mg PO BID and monitor BP Home blood pressure medications have been resumed and blood pressure has improved Echocardiogram ordered Normal LVEF, wall motion, diastolic function Discussed anticoagulation/antiplatelet therapy with neurology who recommends continuing with Eliquis 5 mg twice daily Continue statin, folic acid PT/OT/speech therapy consultations placed patient with aphasia and weakness at this time Will need to be counseled extensively on medication compliance Acute kidney injury Continue IV fluids overnight Recheck, strain the morning If persistent or worsening will consider nephrology consult CT performed today without renal obstructive findings Fecal impaction/constipation CT abdomen pelvis today shows fecal impaction with colonic distention Getting soapsuds enema now Will also start scheduled stool softeners Possible discharge to inpatient rehab if renal function improves and able to pass stool Nurse reports some stool has already passed during enema DVT PPX: Eliquis Code status: Full code Discharge Plan: Inpatient rehab Plan to discharge in: 1 day Time Spent Managing Pts Care (In Minutes): 35 Vital Signs/Physical Exam: Temp Pulse Resp BP Pulse Ox 97.4 F 81 20 134/87 93 12/21/24 16:00 12/21/24 16:00 12/21/24 16:00 12/21/24 16:00 12/21/24 16:00 Laboratory Data at Discharge: WBC 9.20 thou/uL (4.3-10.9) 12/21/24 03:57 Hgb 15.3 g/dL (13.6-17.9) 12/21/24 03:57 Hct 44.9 % (39.6-49.0) 12/21/24 03:57 Plt Count 277 thou/uL (152-406) 12/21/24 03:57 PT 15.3 SECONDS (10-13.0) H 12/15/24 09:17 INR 1.37 12/15/24 09:17 APTT 34.0 SECONDS (27.2-37.4) 12/15/24 09:17 Sodium 139 mEq/L (136-145) 12/21/24 03:57 Potassium 3.1 mEq/L (3.5-5.1) L 12/21/24 14:43 BUN 69 mg/dL (7-18) H 12/21/24 03:57 Creatinine 2.20 mg/dL (0.70-1.30) H 12/21/24 03:57 Glucose 72 mg/dL (74-106) L 12/21/24 03:57 Phosphorus 2.9 mg/dL (2.5-4.9) 12/16/24 04:41 Magnesium 2.0 mg/dL (1.6-2.4) 12/16/24 04:41 Total Bilirubin 1.7 mg/dL (0.2-1.0) H 12/21/24 03:57 AST 21 U/L (15-37) 12/21/24 03:57 ALT < 14 U/L (16-61) L 12/21/24 03:57 Alkaline Phosphatase 65 U/L (45-117) 12/21/24 03:57 Triglycerides 78 mg/dL (<150) 12/16/24 04:41 Cholesterol 184 mg/dL (<200) 12/16/24 04:41 HDL Cholesterol 46 mg/dL (40-60) 12/16/24 04:41 Cholesterol/HDL Ratio 4.00 12/16/24 04:41 Home Medications: Folic Acid 1 mg PO DAILY #30 tab 04/05/22 Losartan Potassium 25 mg PO DAILY 06/06/22 Spironolactone [Aldactone*] 25 mg PO BID tab 06/11/22 Amiodarone HCl [Cordarone*] 200 mg PO BID tab 12/19/24 Apixaban [Eliquis] 5 mg PO BID 12/19/24 Atorvastatin Calcium [Lipitor] 40 mg PO BEDTIME tab 12/19/24 Metoprolol Tartrate [Lopressor*] 50 mg PO BID 6AM 6PM tab 12/19/24 Physician Discharge Instructions: Patient was admitted to the hospital initially for acute ischemic CVA and hypertensive emergency. He was aphasic at this time and unable to give a clear history but it is doubted that he was compliant with his medications including his anticoagulation for A-fib and blood pressure medications. MRI of the brain showed acute CVA in the distribution of the left MCA territory superiorly which is multifocal and moderate in size with a large area of infarction measuring about 3 cm. Patient was also having significant right upper and right lower extremity weakness in addition to his severe aphasia. Patient was admitted to the hospital, permissive hypertension was allowed during the first 48 hours, we have begun to initiate his home blood pressure medications starting with metoprolol. Losartan has been added this morning on 12/19. Patient is been working well with physical therapy and is stable for discharge to inpatient rehab. Discussed patient's medical history and findings with neurology who recommend initiation/reinitiation of Eliquis 5 mg twice daily. Patient also had elevated troponin on admission which is likely secondary to the hypertensive emergency, he was seen by cardiology, echocardiogram was performed which showed normal LVEF, normal wall motion. No further inpatient cardiac evaluation necessary, recommend outpatient stress test. Initially all of his blood pressure medications were held after he was off the Cardene drip to allow for permissive hypertension On 12/18 he was started on metoprolol 25 mg twice daily 12/19 blood pressure still elevated metoprolol increased to 50 mg twice daily and losartan 25 mg daily added At home patient was also on spironolactone which may be added as necessary if blood pressures persistently elevated Diet: AHA Activity: Fall precautions Followup: Roberto Vaca MD [ASSOCIATE-ACTIVE - CAN ADMIT] - 2-3 Days Guilherme Tello MD [Primary Care Provider] - 1-2 Weeks
== END 2024-12-21 20:59 | disposition expired | DRG 64 ==
LOC: ER 08:19 → ERHOLD 11:27 → 3RD-ICU 21:26 → 2ND 12-16 17:51
PROVIDERS: ADMIT Hospitalist; ATTEND Internal Medicine
PROC: 5A12012 Performance of Cardiac Output, Single, Manual (ICD-10-PCS; principal; 2024-12-21)
DX: I63.9 Cerebral infarction, unspecified (principal); I21.4 Non-ST elevation (NSTEMI) myocardial infarction; I16.1 Hypertensive emergency; N17.9 Acute kidney failure, unspecified; I50.22 Chronic systolic (congestive) heart failure; Z91.199 Patient's noncompliance with other medical treatment and regimen due to unspecified reason; Z79.01 Long term (current) use of anticoagulants; I48.91 Unspecified atrial fibrillation; K56.41 Fecal impaction; I11.0 Hypertensive heart disease with heart failure; Z79.899 Other long term (current) drug therapy; R29.708 NIHSS score 8; E78.5 Hyperlipidemia, unspecified; Z79.82 Long term (current) use of aspirin; I69.111 Memory deficit following nontraumatic intracerebral hemorrhage; I49.01 Ventricular fibrillation
CPT/HCPCS: 36415; 70450; 70496; 70498; 70551; 71045; 74176; 80048; 80053; 80061; 80076; 82565; 82947; 83735; 84100; 84132; 84484; 85025; 85610; 85730; 92523; 92950; 93005; 93306; 93880; 96365; 96366; 96367; 97110; 97116; 97161; 97530; 99285; J0360; J7030; J7120; Q9967